=== PATIENT | female | born 1955 | race Caucasian/White ===

== ENCOUNTER 2023-12-26 00:34 | Day surgery (SDC) | payer MEDICARE, SELFPAY ==
[2023-11-28 08:59] VITALS: BMI 27.5
--- NOTE | 2023-12-23 10:52 | SUR.PREOP ---
Patient called regarding upcoming procedure. Reviewed preop instructions, appointment times, and procedure prep.
--- NOTE | 2023-12-23 13:11 | PM.HPGS ---
History of Present Illness History of Present Illness Consent: Risks, benefits, and alternatives have been discussed and questions answered. Patient agrees to proceed with procedure. Chief complaint: hx colon polyps Narrative: Dena Bruce is a 68 year old female Referred for colon cancer screening. She has a history of polyps. her last colonoscopy was 6 years ago. Review of Systems Review of Systems: All systems reviewed & are unremarkable except as noted in HPI and below PMFSH Social History Social History Smoking status: Former smoker Tobacco type: cigarettes Alcohol intake: current Drinks per week: 4 Alcohol use details: wine Substance use type: does not use Living arrangements: with family Spiritual care concerns: No Meds Home Medications and Allergies Home Medications Medication Instructions Recorded Confirmed Type Lactobacillus 1 cap PO DAILY 11/28/23 12/26/23 History acidophilus-Bifidobac.animalis 2.5 billion cell capsule (Daily Probiotic) alprazolam 0.5 mg tablet 0.5 mg PO HS PRN Anxiety 11/28/23 12/26/23 History calcium carbonate 600 mg-vitamin 1 tablet PO DAILY 11/28/23 12/26/23 History D3 20 mcg (800 unit) chewable tablet (Caltrate 600 plus D) cholecalciferol (vitamin D3) 50 50 mcg PO DAILY 11/28/23 12/26/23 History mcg (2,000 unit) tablet (Vitamin D3) escitalopram oxalate 20 mg tablet 20 mg PO DAILY 11/28/23 12/26/23 History melatonin 5 mg tablet 5 mg PO HS PRN Insomnia 11/28/23 12/26/23 History meloxicam 7.5 mg tablet 7.5 mg PO DAILY PRN Pain 11/28/23 12/26/23 History omeprazole 20 mg capsule,delayed 20 mg PO DAILY 11/28/23 12/26/23 History release pravastatin 40 mg tablet 40 mg PO HS 11/28/23 12/26/23 History triamterene 37.5 1 cap PO DAILY 11/28/23 12/26/23 History mg-hydrochlorothiazide 25 mg capsule vitamin B complex 1 tablet PO DAILY 11/28/23 12/26/23 History Allergies Allergy/AdvReac Type Severity Reaction Status Date / Time hydrocodone Allergy Rash Verified 12/26/23 06:54 vancomycin Allergy Other Verified 12/26/23 06:54 Exam Const: General: alert Orientation/consciousness: patient oriented x3 Resp: Auscultation: clear to auscultation bilaterally Cardio: Rhythm: regular rhythm GI: GI Palp: Yes Soft to palpation and No Tenderness to palpation present (GI) Neuro: General: patient oriented x3 Assessment and Plan Assessment and plan (1) Colon cancer screening: Code(s): Z12.11 - Encounter for screening for malignant neoplasm of colon Status: Acute Assessment and Plan: Colonoscopy with possible biopsy or polypectomy or cautery or injection of substances.
[2023-12-26 06:57] VITALS: BP 136/80; PULSE 83; RESP 18; TEMP 36.8; O2SAT 96
[2023-12-26] MEDS: LACTATED RINGERS 1,000 ML 150 ML IV CONT (07:05)
[2023-12-26] MEDS: AMPICILLIN 2 GM/NS 100 ML 2 GM/100 ML BAG IVPB (07:06)
--- NOTE | 2023-12-26 07:27 | WPDANESEPPF ---
Anes - Initial Pre Proc Eval Procedure: Operation Date: 12/26/23 08:00 Proposed Procedures p Colonoscopy - Derick Echeverria MD Date/Time: 12/26/23 07:27 Surgeon: Derick Echeverria MD Pre Op Diagnosis: hx colon polyps Patient Data Age: 68 Gender: F Height: 1.68 m Weight: 77.4 kg Last Vital Signs Temp 98.3 F 12/26/23 06:57 Pulse 83 12/26/23 06:57 Resp 18 12/26/23 06:57 BP 136/80 12/26/23 06:57 Pulse Ox 96 12/26/23 06:57 O2 Del Method Room Air 12/26/23 06:57 Allergies Allergy/AdvReac Type Severity Reaction Status Date / Time hydrocodone Allergy Rash Verified 12/26/23 06:54 vancomycin Allergy Other Verified 12/26/23 06:54 Home Medications Medication Instructions Recorded Confirmed Type Lactobacillus 1 cap PO DAILY 11/28/23 12/26/23 History acidophilus-Bifidobac.animalis 2.5 billion cell capsule (Daily Probiotic) alprazolam 0.5 mg tablet 0.5 mg PO HS PRN Anxiety 11/28/23 12/26/23 History calcium carbonate 600 mg-vitamin 1 tablet PO DAILY 11/28/23 12/26/23 History D3 20 mcg (800 unit) chewable tablet (Caltrate 600 plus D) cholecalciferol (vitamin D3) 50 50 mcg PO DAILY 11/28/23 12/26/23 History mcg (2,000 unit) tablet (Vitamin D3) escitalopram oxalate 20 mg tablet 20 mg PO DAILY 11/28/23 12/26/23 History melatonin 5 mg tablet 5 mg PO HS PRN Insomnia 11/28/23 12/26/23 History meloxicam 7.5 mg tablet 7.5 mg PO DAILY PRN Pain 11/28/23 12/26/23 History omeprazole 20 mg capsule,delayed 20 mg PO DAILY 11/28/23 12/26/23 History release pravastatin 40 mg tablet 40 mg PO HS 11/28/23 12/26/23 History triamterene 37.5 1 cap PO DAILY 11/28/23 12/26/23 History mg-hydrochlorothiazide 25 mg capsule vitamin B complex 1 tablet PO DAILY 11/28/23 12/26/23 History Patient hx anesthesia problems: none Family hx anesthesia problems: none Results Review: All pre-operative results and documents have been reviewed as part of the pre-operative evaluation. [facility] Social History Social History Smoking status: Former smoker Tobacco type: cigarettes Alcohol intake: current Drinks per week: 4 Alcohol use details: wine Substance use type: does not use Living arrangements: with family Spiritual care concerns: No Anes - Eval Final PreProcedure Day of Procedure 12/26/23 07:27 Patient weight: normal Heart: regular rate and rhythm Lungs: clear to auscultation Airway: Mallampati scale class II Neurological: alert and oriented Last oral intake: >/= 8 hours ASA classification: III Emergent: no Anesthetic plan: proceed Anesthesia type and monitoring: general GIVS and standard monitoring Results Review: All pre-operative results and documents have been reviewed as part of the pre-operative evaluation. Informed Consent: The patient's anesthetic plan and its attendant risks and benefits were discussed with the patient/family/POA. Questions were solicited and answers provided to the satisfaction of the patient/family/POA.
[2023-12-26 08:11] VITALS: BP 104/61; PULSE 65; RESP 15; O2SAT 95
[2023-12-26 08:21] VITALS: BP 111/63; PULSE 71; RESP 22; O2SAT 98
[2023-12-26 08:31] VITALS: BP 119/72; PULSE 64; RESP 20; O2SAT 99
== END 2023-12-26 08:33 | disposition home or self-care (01) ==
PROVIDERS: PCP Internal Medicine; Visit Provider Internal Medicine Gastroenterology
PROC: 0DJD8ZZ Inspection of Lower Intestinal Tract, Via Natural or Artificial Opening Endoscopic (ICD-10-PCS; CPT 45378; principal; 2023-12-26 08:00)
DX: Z12.11 Encounter for screening for malignant neoplasm of colon (principal); K57.30 Diverticulosis of large intestine without perforation or abscess without bleeding; Z86.010 Personal history of colon polyps; Z87.891 Personal history of nicotine dependence
CPT/HCPCS: G0105; J0290; J2704; J7120

== ENCOUNTER 2025-01-01 11:53 | Outpatient (CLI) | payer MEDICARE, SELFPAY ==
--- NOTE | 2025-01-01 12:26 | ECG_ITS ---
Test Date: 2025-01-01 13:07:45 Measurements Intervals [place] Rate: 69 P: 36 MT: 130 QRS: -20 QRSD: 86 T: 27 QT: 378 QTc: 406 Interpretive Statements SINUS RHYTHM NONSPECIFIC T-WAVE ABNORMALITY- ANT/INF LEADS BASELINE ARTIFACT- I, II, AVR BORDERLINE ECG No previous ECG available for comparison Electronically Signed On 01-01-2025 13:09:54 [employer] PAYABLES CLERK by Mickey Muller D.O.
[2025-01-01 13:40] LABS: Basophils Percent Auto 0.3 % (0.2-1.2); Eosinophils Absolute Auto 0.2 K/mm3 (0-0.3); Eosinophils Percent Auto 3.4 % (0-4.4); Hematocrit 40.3 % (37.0-47.0); Immature Granulocyte Absolute 0.02 K/mm3 (0.00-0.031); Immature Granulocyte Percent A 0.3 % (0-0.5); Lymphocytes Absolute Auto 2.18 K/mm3 (0.9-3.2); Lymphocytes Percent Auto 33.4 % (18.3-44.2); Mean Corpuscular HGB Conc 32.3 g/dl (32-36); Mean Corpuscular Volume 96.2 fl (80-100); Mean Platelet Volume 10.5 fl (7.4-10.4); Monocytes Absolute Auto 0.5 K/mm3 (0.1-0.6); Monocytes Percent Auto 7.2 % (2.6-8.5); Neutrophils Absolute Auto 3.6 K/mm3 (1.3-6.7); Neutrophils Percent Auto 55.4 % (45.5-73.1); Platelet Count Result 219 k/mm3 (150-375); Red Blood Count 4.19 M/mm3 (4.2-5.4); Red Cell Distribution Width 13.2 % (11.5-14.5); White Blood Count 6.5 K/mm3 (4.5-10.0)
[2025-01-01 13:51] LABS: INR 0.9; Prothrombin Time 12.8 Seconds (11.1-14.7)
[2025-01-01 13:52] LABS: Partial Thromboplastin Time 24.5 Seconds (22.3-36.8)
--- OUTSIDE RECORDS SUMMARY | 2025-01-01 13:54 | XMS_ITS | Encounter Summary ---
Author Organization [facility] Address [address] [place] [address] Phone Care Team Providers Care Cardiology Manager Name Role Phone Leno Bermudez MD Primary Care Provider [phone] Leno Bermudez MD Unavailable [phone] Encounter Details Date Type Department Care Team (Late st Contact Info) Description 05/16/2023 Lab Requisition [facility] [address] [place] [address] System, Referring Not In [place] Social History Tobacco Use Types Packs/Day Years Used Date Smoking Tobacco: Former Smokeless Tobacco: Never Alcohol Use Standard Drinks/Week Comments Yes 0 (1 standard drink = 0.6 oz pur e alcohol) wine Comments No Sex and Gender Information Value Date Recorded Sex Assigned at Not on file 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 No / Unsure 05/16/2023 9:51 AM CDT documented as of this encounter Plan of Treatment Not on file documented as of this encounter Procedures Procedure Name Priority Date/Time Associated Diagnosis Comments QUANTIFERON-TB GOLD PLUS Routine 05/16/2023 10:44 AM CDT MMRV PANEL Routine 05/16/2023 10:44 AM CDT MUMPS IGG Routine 05/16/2023 10:44 AM CDT HERPES ZOSTER (VARICELLA) IGG Routine 05/16/2023 10:44 AM CDT RUBEOLA (MEASLES) IGG Routine 05/16/2023 10:44 AM CDT RUBELLA IMMUNITY IGG Routine 05/16/2023 10:44 AM CDT HEPATITIS B SURFACE ANTIBODY (HBSAB) Routine 05/16/2023 10:44 AM CDT documented in this encounter Results * HERPES ZOSTER (VARICELLA) IGG (05/16/2023 10:44 AM CDT) VARICELLA ZOSTER IGG 4.5 >=1.1 AI 05/16/2023 10:18 PM CDT [facility] Blood Venipuncture / Unknown 05/16/2023 10:44 AM CDT 05/16/2023 12:46 PM CDT Narrative [facility] - 05/16/2023 10:18 PM CDT <= 0.8 Negative. No detectable VZV IgG antibody. 0.9 - 1.0 Equivocal >=1.1 Positive Antibody testing was performed by multiplex flow immunoassay on the [employer] platform. us Referring Not In System IMMUNOLOGY ORDERABLES Fi nal Result Performing Organization Address City/State/[facility] Co de Phone Number [facility] [address] [place] [address], * RUBEOLA (MEASLES) IGG (05/16/2023 10:44 AM CDT) MEASLES AB IGG >8.0 >=1.1 AI 05/16/2023 10:18 PM CDT [facility] Blood Venipuncture / Unknown 05/16/2023 10:44 AM CDT 05/16/2023 12:46 PM CDT Narrative [facility] - 05/16/2023 10:18 PM CDT <= 0.8 Negative. No detectable Measles IgG antibody. 0.9 - 1.0 Equivocal >=1.1 Positive Antibody testing was performed by multiplex flow immunoassay on the [employer] platform. us Referring Not In System IMMUNOLOGY ORDERABLES Fi nal Result Performing Organization Address City/[facility] Co de Phone Number [facility] [address] [place] [address], [place] * RUBELLA IMMUNITY IGG (05/16/2023 10:44 AM CDT) RUBELLA IMMUNITY Immune Immune, Invalid 05/16/2023 10:18 PM CDT [facility] Blood Venipuncture / Unknown 05/16/2023 10:44 AM CDT 05/16/2023 12:46 PM CDT Narrative [facility] - 05/16/2023 10:18 PM CDT Antibody testing was performed by multiplex flow immunoassay on the [employer] platform. us Referring Not In System CHEMISTRY ORDERABLES Fin al Result Performing Organization Address [facility] Co de Phone Number [facility] [address] [place] [address], [place] * MUMPS IGG (05/16/2023 10:44 AM CDT) Mumps Ab IgG 3.8 >=1.1 AI 05/16/2023 10:18 PM CDT [facility] Blood Venipuncture / Unknown 05/16/2023 10:44 AM CDT 05/16/2023 12:46 PM CDT Narrative [facility] - 05/16/2023 10:18 PM CDT <= 0.8 Negative. No detectable Mumps IgG antibody. 0.9 - 1.0 Equivocal >=1.1 Positive Antibody testing was performed by multiplex flow immunoassay on the [employer] platform. us Referring Not In System IMMUNOLOGY ORDERABLES Fi nal Result Performing Organization Address City/[facility]/ZIP Co de Phone Number [facility] [address] [place] [address], * QUANTIFERON-TB GOLD PLUS (05/16/2023 10:44 AM CDT) NIL CONTROL 0.02 <8.01 IU/mL 05/18/2023 11:08 AM CDT [facility] TB ANTIGEN 1 0.02 <0.35 IU/mL 05/18/2023 11:08 AM CDT [facility] TB ANTIGEN 2 0.03 <0.35 IU/mL 05/18/2023 11:08 AM CDT [facility] MITOGEN CONTROL 9.98 >0.49 IU/mL 05/18/20 11:08 AM CDT [facility] INTEPRETATION TB NEGATIVE NEGATIVE, NEGATIVE (TB antigen response less than 25% of internal negative control value) 05/18/2023 11:08 AM CDT [facility] Comment:No immune response t o Mycobacterium tuberculosis antigens was noted. M. tuberculosis infection unlikely. Blood Venipuncture / Unknown 05/16/2023 10:44 AM CDT 05/16/2023 12:46 PM CDT Narrative [facility] - 05/18/2023 11:08 AM CDT A POSITIVE QUANTIFERON-TB GOLD PLUS RESULT SHOULD NOT BE THE SOLE OR DEFINITIVE BASIS FOR DETERMINING INFECTION WITH M.TUBERCULOSIS. Diagnosing or excluding tuberculosis disease, and assessing the probability of LTBI, requires a combination of epidemiological, historical, medical and diagnostic findings (e.g., acid fast bacilli (AFB) smear and culture, chest xray) that should be taken into account when interpreting QFT-Plus results. Furthermore, the magnitude of the measured gamma interferon level cannot be correlated to stage or degree of infection, level of immune responsiveness, or likelihood for progression to active disease. The Nil control adjusts for background (e.g., elevated levels of circulating gamma interferon or presence of heterophile antibodies). The Mitogen control serves as an internal positive control and verifies each specimen tested can produce a gamma interferon response. Low mitogen may occur with insufficient lymphocytes, reduced lymphocyte activity due to improper specimen handling, filling/mixing of the mitogen tube, or inability of the patient's lymphocytes to generate gamma interferon. Infection with other Mycobacteria, including M. kansasii, M. szulgai, and M. marinum, may cause false positive results. A negative QuantiFERON-TB Gold Plus result does not preclude the possibility of M. tuberculosis infection or tuberculosis disease: false negative results can be due to incorrect blood sample collection/ improper handling of the specimen, stage of infection (e.g., specimen obtained prior to the development of cellular immune response), co-morbid conditions which affect immune function, or other individual immunological factors. The minimum number of lymphocytes required for a reliable test has not been established and may also be variable. Diagnostic testing for Mycobacterium tuberculosis using Interferon Gamma Release Assays should follow applicable published guidelines, including when testing in populations such as children, women, and HIV-infected or otherwise immunocompromised individuals. https://www.cdc.gov/tb/publications/guidelines/testing.htm us Referring Not In System IMMUNOLOGY ORDERABLES Fi nal Result Performing Organization Address [facility] Co de Phone Number [facility] [address] [place] [address], [place] * HEPATITIS B SURFACE ANTIBODY (HBSAB) (05/16/2023 10:44 AM CDT) HEPATITIS B SURFACE ANTIBODY 45.48 mIU/mL [facility] ARCH [id number] 05/17/2023 1:39 AM CDT [facility] Comment: Detected Range: >12.00 Individual is considered immune to HBV infection Blood Venipuncture / Unknown 05/16/2023 10:44 AM CDT 05/16/2023 12:46 PM CDT us Referring Not In System CHEMISTRY ORDERABLES Fin al Result Performing Organization Address [facility] Co de Phone Number [facility] [address] [place] [address], documented in this encounter Visit Diagnoses Not on filedocumented in this encounter Care Teams Cardiology Manager Relationship Specialty Start Date End Date Leno Bermudez MD [address] [facility] [address] [place] [address] PCP - General Internal Medicine 11/02/20 Leno Bermudez MD [address] [place] [address] [address] [place] [address] Internal Medicine 11/02/20 documented as of this encounter
--- OUTSIDE RECORDS SUMMARY | 2025-01-01 13:54 | XMS_ITS | Clinical Summary ---
Author Organization [facility] Address [address] [place] [id number] Care Team Providers Care Range Manager Name Role Phone Leno Bermudez MD Unavailable [phone] Leno Bermudez MD Primary Care Provider Allergies Active Allergy Reactions Criticality Noted Date Comments Hydrocodone Anxiety,Rash Medium 10/04/2020 Vancomycin Other (See comments) High 11/02/2022 DRESS Positive patch testing in allergy clinic on 03/25/23. Polyglactin 910 Other (See comments) Low 09/14/2022 infection Medications cholecalciferol, vitamin D3, (CHOLECALCIFEROL , VIT D3,,BULK, MISC) Take by mouth daily as needed Active ALPRAZolam (XANAX) 0.5 mg tabletIndication s:anxiety Take 1 tablet (0.5 mg total) by mouth nightly as needed for sleep 2 Active escitalopram (LEXAPRO) 20 mg tabletIndication s:Anxiety with Depression Take 1 tablet (20 mg total) by mouth every morning 0 Active omeprazole (PriLOSEC) 20 mg capsuleIndicatio ns:Stress Ulcer Prophylaxis Take by mouth every morning 2 Active pravastatin (PRAVACHOL) 40 mg tabletIndication s:hyperlipidemia Take 1 tablet (40 mg total) by mouth nightly 0 Active triamterene-hydr oCHLOROthiazide 37.5-25 mg per tablet/capsuleIn dications:HTN Take 1 tablet/capsul e by mouth every morning 0 Active calcium carbonate-vitami n D3 1,500 mg (600 mg elemental)-500 unit capsuleIndicatio ns:Vitamin D Deficiency Take 1 tablet by mouth every morning Active meloxicam (MOBIC) 7.5 mg tabletIndication s:Pain Take 1 tablet (7.5 mg total) by mouth daily 30 tablet 11 2 Active ondansetron (ZOFRAN) 4 mg tablet Take 1 tablet (4 mg total) by mouth every 6 (six) hours as needed for nausea or vomiting 40 tablet 3 Active amoxicillin 500 mg tablet/capsuleIn dications:Prophy laxis, Medical TAKE 4 PILLS 1 HOUR BEFORE DENTAL APPOINTMENT. 12 tablet/capsul e 3 Active amoxicillin 500 mg tablet/capsule TAKE 4 PILL 1 HOUR BEFORE DENTAL APPOINTMENT. 12 tablet/capsul e 4 Active Active Problems Problem Noted Date Diagnosed Date Chronic infection of left knee 01/05/2023 Infection and inflammatory r eaction due to internal left knee prosthesis, initial encounter 09/28/2022 MARIAM on CPAP 09/17/2022 Bacterial arthritis (CMS/HCC) 09/15/2022 Chronic sinusitis 09/14/2022 Closed fracture of lateral malleolus 09/14/2022 Contusion of chest 09/14/2022 Depressive disorder 09/14/2022 Fracture of lower leg 09/14/2022 Illness 09/14/2022 Osteoarthritis of knee 09/14/2022 Osteopenia 09/14/2022 Polyneuropathy 09/14/2022 Restless legs 09/14/2022 Sciatica 09/14/2022 Vertigo 09/14/2022 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 - She has completed 6 weeks of treatment with antibiotics - Labs from 11/08/22 were reviewed. CK within normal limits, ESR/CRP 14/<3.0 and LFT's have normalized. - She is planned for [address] Forman - Will stop her IV and PO antibiotics today as she completed her 6 week treatment for culture negative PJI - PICC line removed in clinic - May follow with ID as needed moving forward - Will touch base with Dr. Forman and inform that antibiotics have been stopped - Discussed with patient the rational for treatment, culture results, risk of recurrent infection, signs/symptoms of recurrent infection, and to contact ID clinic with any questions or concerns Assessment & Plan (10/19/2022 3:18 PM VAMP LINER): Summary: L-TKA PJI, culture-negative s/p 1st stage of planned 2-stage procedure. Current antibiotic regimen is: Vancomycin and ceftriaxone Start date: 09/27/22 Due date:11/08/22 Completed 3 weeks of therapy Adverse effects from antibiotics: DRES Slightly improvement since stopping ALUMINUM SIDING APPLICATOR and VAN. We discussed options to complete therapy providing similar coverage with alternative agents; PO bactrim not favored by the patient due to potential side effects (no known allergy and tolerated before), so we'll complete therapy with daptomycin and ciprofloxacin PLAN - Discontinue current treatment regimen - will get baseline CPK today and start Daptomycin 8 mg/Kg = 600 mg IV daily + Ciprofloxacin 750 mg PO q12h to complete the 6-weeks of therapy as planned --firm stop on 11/08/21 - while on IV daptomucyn we'll monitor CBC/CMP weekly and CK x2 weekly (on pravastatin). RTC in 3 weeks. Assessment & Plan (09/30/2022 11:43 AM VAMP LINER): The patient is a 67 y.o. female with PMH of HTN, HLD, GERD, depression, L TKA in 2016 who presents for concern of chronic PJI. She had 2 prior aspirations of L knee in Jul 2022 with mildly elevated cell count and negative cultures. Repeat aspiration of L knee 08/24 showed 3.5k cells with 90%N and negative cultures. Synovasure was positive for Staph panel, no crystals. XR showed loosening of tibial component TKA. ESR 16and CRP 4.2. No systemic symptoms. She underwent removal of L TKA with I&D and placement of articulating spacer. Gross purulence was noted upon entering the joint.OR cultures remain NGTD. She was started on empiric vanc and cefepime. Since admission she has been afebrile and HDS. Labs without leukocytosis. Recommendations: - increased vancomycin dose 1500 mg q12h, ordered trough before 4th dose (goal 15-20) - continue cefepime to 2g q12h - plan to continue current antibiotic therapy for 6 weeks - given negative cultures pending PCR sent out by micro lab, will follow up results once available likely outpatient - ID will sign off, summary of treatment note with final recs Arthralgia of left knee 07/16/2022 Vitamin D deficiency 04/29/2022 Diverticulitis of sigmoid colon 04/14/2020 Raynaud's disease 02/06/2019 Gastroesophageal reflux disease 03/07/2017 Hiatal hernia 03/07/2017 Hypertensive disorder 03/07/2017 Pure hypercholesterolemia 03/07/2017 Asthma 03/07/2017 Immunizations Immunization Administration Dates Next Due Influenza, Quadrivalent, Split, Intramuscular Influenza, Unspecified 08/18/2023 Moderna SARS-CoV-2 Monovalent Vaccination (12+ Y RS) 09/21/2021,09/10/2021 Pneumococcal Conjugate PCV 13 10/21/2021 Tdap 11/02/2020 Surgical History Surgery Date Site/Laterality Comments CATARACT EXTRACTION 08/07/2020 - 09/06/2020 Bilateral KNEE ARTHROPLASTY 11/07/2016 - 11/06/2017 Left OTHER SURGICAL HISTORY 11/07/2009 - 11/06/2010 TVT SEPTOPLASTY 11/07/2003 - 11/06/2004 CARPAL TUNNEL RELEASE 11/07/2002 - 11/06/2003 Right BREAST BIOPSY 11/07/1999 - 11/06/2000 Right Medical History Medical History Date Comments PONV (postoperative nausea and vomiting) Does well with scope in pre op, does well with premedication in preop Sleep apnea 2010 cpap HTN (hypertension) HLD (hyperlipidemia) Anxiety and depression GERD (gastroesophageal reflux disease) Cataracts, bilateral Osteoarthritis Family History Medical History Relation Name Comments Heart attack Father Stroke Father Transient ischemic attack Sister Anesthesia problems Neg Hx Relation Name Status Comments Father Sister Social History Tobacco Use Types Packs/Day Years Used Date Smoking Tobacco: Former Cigarettes 0.5 6 1 2 - 1977 Passive Smoke Exposure: Never Tobacco Cessation:Counseling Given: Not Answered OASIS D0700: Social Isolation Answer Da te Recorded Frequency of experiencing loneliness or isolatio n Rarely 11/11/2022 OASIS A1250: Transportation Answer Date Recorded Lack of Transportation (Medical) No 11/11/2022 Lack of Transportation (Non-Medical) No 11/11/2022 Patient Unable or Declines to Respond No 11/11/2022 OASIS B1300: Health Literacy Answer Maurizio e Recorded Frequency of needing help to read materials from doctor or pharmacy Patient unable to respond 11/11/2022 AUDIT-C Answer Date Recorded Q1: How often do you have a drink containing alc ohol? 2-3 times a week 04/22/2023 Average Number of Drinks Not on file 023 Frequency of Binge Drinking Not on file 04/07 Personal Safety Answer Date Recorded Getting School Help Needed Denies 11/10 Comments No Sex and Gender Information Value Date Recorded Sex Assigned at Not on file Legal Sex Female 8:26 AM VAMP LINER Gender Identity Not on file Sexual Orientation Not on file Obstetrics History Last Filed Vital Signs Vital Sign Reading Time Taken Comments Blood Pressure 121/78 04/22/2023 9:29 AM CDT Pulse 67 04/22/2023 9:29 AM CDT Temperature 36.7 C (98 F) 04/22/2023 9:29 AM CDT Respiratory Rate 12 03/25/2023 8:50 AM CDT Oxygen Saturation 99% 04/22/2023 9:29 AM CDT Inhaled Oxygen Concentration - - Weight 78.3 kg (172 lb 11.2 oz) 04/22/2023 9:29 AM CDT Height 170.2 cm (5' 7 ) 04/22/2023 9:29 AM CDT Body Mass Index 27.05 04/22/2023 9:29 AM CDT Plan of Treatment Health Maintenance Due Date Last Done Comments Breast Cancer Screening-Mammogram 1954 Colon Cancer Screening-Colonoscopy 1955 Depression Screening 1955 Hepatitis C Screening 1955 Hepatitis B Screening 02/08/1972 Zoster Vaccine (1 of 2) 02/08/2004 Well Visit 65+ 2019 Pneumococcal vaccine 65+ (2 of 2 - PPSV23) 12/16/2021 10/21/2021 Osteoporosis Screening-Bone Density Scan 11/04/2023 11/04/2021 Fall Risk Assessment 01/07/2024 01/06/2023 Covid-19 Vaccine (5 - 2023-2 5 season) 2024 09/21/2021, 09/10/2021, 01/05/2021, Additional history exists Influenza Vaccine (#1) 2024 08/18/2023, 2020 DTaP/Tdap/Td Vaccine (2 - Td or Tdap) 11/02/2030 11/02/2020 Medical Devices Implanted Type Area Supervisory Clerk Device Identifier Shelf Expiration Date Model / Serial / Lot Plate Plate Left: Ankle Description:Plate & screws [employer] Simplex P Full Dose Radiopaque Preblend Cement Bone Tobramycin 6197-9-010 - [id number] Implanted:Qty: 1 on 01/05/2023 by Kevon Forman MD at [facility] Left: Knee [employer] 05/06/2024 6197-07-08 0 / / [id number] [employer] Simplex P Full Dose Radiopaque Preblend Cement Bone Tobramycin 6197-9-010 - [id number] Implanted:Qty: 1 on 01/05/2023 by Kevon Forman MD at [facility] Left: Knee [employer] 06/06/2024 6197-07-08 0 / / [id number] [employer] Simplex P Full Dose Radiopaque Preblend Cement Bone Tobramycin 6197-9-010 - [id number] Implanted:Qty: 1 on 01/05/2023 by Kevon Forman MD at [facility] Left: Knee [employer] 05/06/20249 0 / / [id number] [employer] Simplex P Full Dose Radiopaque Preblend Cement Bone Tobramycin 6197-9-010 - [id number] Implanted:Qty: 1 on 01/05/2023 by Kevon Forman MD at [facility] Left: Knee [employer] 06/06/2024 6197-07-08 0 / / [id number] [employer] Triathlon Total Stabilizer Knee Left 4 Component Femoral Cocr 5512-F-401 - [id number] Implanted:Qty: 1 on 01/05/2023 by Kevon Forman MD at [facility] Left: Knee [employer] [id number] 07/28/2027 5512-F-40 1 / / [id number] [employer] Triathlon Total Stabilize Knee Femur 25mm Extension Stem 5571-S-025 - [id number] Implanted:Qty: 1 on 01/05/2023 by Kevon Forman MD at [facility] Left: Knee [employer] [id number] 10/14/2027 5571-S-02 5 / / [id number] [employer] Tri[employer]lon 12mm 50mm Cement End Cap Knee Stem Femoral Cocr 5560-S-112 - [id number] Implanted:Qty: 1 on 01/05/2023 by Kevon Forman MD at [facility] Left: Knee [employer] [id number] 11/16/2027 5560-S-11 2 / / [id number] [employer] Triathlon 5mm Total Stabilize Knee Left 4 Augment Femoral 5540-A-401 - [id number] Implanted:Qty: 1 on 01/05/2023 by Kevon Forman MD at [facility] Left: Knee [employer] [id number] 11/08/2027 5540-A-40 1 / / [id number] [employer] Tri[employer]lon 5mm Total Stabilize Knee Left 4 Augment Femoral 5540-A-401 - [id number] Implanted:Qty: 1 on 01/05/2023 by Kevon Forman MD at [facility] Left: Knee [employer] [id number] 11/08/2027 5540-A-40 1 / / [id number] [employer] Tri[employer]lon 5mm Total Stabilize Knee Posterior 4 Augment Femoral 5543-A-400 - [id number] Implanted:Qty: 1 on 01/05/2023 by Kevon Forman MD at [facility] Left: Knee [employer] [id number] 10/14/2027 5543-A-40 0 / / [id number] [employer] Tri[employer]lon 10mm Total Stabilize Knee Posterior 4 Augment Femoral 5544-A-400 - [id number] Implanted:Qty: 1 on 01/05/2023 by Kevon Forman MD at [facility] Left: Knee [employer] [id number] 03/03/2026 5544-A-40 0 / / [id number] [employer] Triathlon Total Stabilize Knee Femur 25mm Extension Stem 5571-S-025 - [id number] Implanted:Qty: 1 on 01/05/2023 by Kevon Forman MD at [facility] Left: Knee [employer] [id number] 10/14/2027 5571-S-02 5 / / [id number] [employer] Tri[employer]lon Knee 3 [place] Baseplate Tibial Cocr 5521-B-300 - [id number] Implanted:Qty: 1 on 01/05/2023 by Kevon Forman MD at [facility] Left: Knee [employer] [id number] 09/08/2025 5521-B-30 0 / / [id number] [employer] Triathlon 12mm 50mm Cement End Cap Knee Stem Femoral Cocr 5560-S-112 - [id number] Implanted:Qty: 1 on 01/05/2023 by Kevon Forman MD at [facility] Left: Knee [employer] [id number] 04/19/2027 5560-S-11 2 / / [id number] [employer] Triathlon 5mm Total Stabilize Right Medial Left Lateral 3 Augment 5545-A-302 - [id number] Implanted:Qty: 1 on 01/05/2023 by Kevon Forman MD at [facility] Left: Knee [employer] [id number] 03/10/2027 5545-A-30 2 / / [id number] [employer] Triathlon 5mm Total Stabilize Left Medial Right Lateral 3 Augment 5545-A-301 - [id number] Implanted:Qty: 1 on 01/05/2023 by Kevon Forman MD at [facility] Left: Knee [employer] [id number] 01/15/2025 5545-A-30 1 / / [id number] [employer] Triathlon 19mm Total Stabilizer Plus Knee 3 Insert Tibial Sterile 1312-I-076-E - [id number] Implanted:Qty: 1 on 01/05/2023 by Kevon Forman MD at [facility] Left: Knee [employer] [id number] 11/26/2026 5537-G-31 9-E / / [id number] Explanted Type Area Supervisory Clerk Device Identifier Shelf Expiration Date Model / Serial / Lot [employer] Simplex P Full Dose Radiopaque Preblend Cement Bone Tobramycin 6197-9-001 - [id number] Implanted:Qty: 3 on 09/27/2022 by Kevon Forman MD at [facility] Explanted:Qty: 3 on 01/05/2023 by Kevon Forman MD at [facility] Left: Knee [employer] 11/06/2023 6197-9-00 1 / / [id number] [employer] Simplex P Full Dose Radiopaque Preblend Cement Bone Tobramycin 6197-9-001 - [id number] Implanted:Qty: 3 on 09/27/2022 by Kevon Forman MD at [facility] Explanted:Qty: 3 on 01/05/2023 by Kevon Forman MD at [facility] Left: Knee [employer] 09/06/2023 6197-9-00 1 / / [id number] [employer] Triathlon 16mm Total Stabilizer Plus Knee 3 Insert Tibial Sterile 6005-G-185-E - [id number] Implanted:Qty: 1 on 09/27/2022 by Kevon Forman MD at [facility] Explanted:Qty: 1 on 01/05/2023 by Kevon Forman MD at [facility] Left: Knee [employer] [id number] 12/31/2026 5537-G-31 6-E / / [id number] [employer] Tri[employer]lon 10mm Total Stabilize Knee Posterior 4 Augment Femoral 5544-A-400 - [id number] Implanted:Qty: 1 on 09/27/2022 by Kevon Forman MD at [facility] Explanted:Qty: 1 on 01/05/2023 by Kevon Forman MD at [facility] Left: Knee [employer] [id number] 01/17/2027 5544-A-40 0 / / [id number] [employer] Triathlon 5mm Total Stabilize Knee Posterior 4 Augment Femoral 5543-A-400 - [id number] Implanted:Qty: 1 on 09/27/2022 by Kevon Forman MD at [facility] Explanted:Qty: 1 on 01/05/2023 by Kevon Forman MD at [facility] Left: Knee [employer] [id number] 05/25/2027 5543-A-40 0 / / [id number] [employer] Triathlon 5mm Total Stabilize Knee Left 4 Augment Femoral 5540-A-401 - [id number] Implanted:Qty: 1 on 09/27/2022 by Kevon Forman MD at [facility] Explanted:Qty: 1 on 01/05/2023 by Kevon Forman MD at [facility] Left: Knee [employer] [id number] 04/01/2024 5540-A-40 1 / / [id number] [employer] Triathlon 5mm Total Stabilize Knee Left 4 Augment Femoral 5540-A-401 - [id number] Implanted:Qty: 1 on 09/27/2022 by Kevon Forman MD at [facility] Explanted:Qty: 1 on 01/05/2023 by Kevon Forman MD at [facility] Left: Knee [employer] [id number] 05/21/2024 5540-A-40 [id number] [employer] Tri[employer] Cemented Posterior Stabilize Knee Left 4 Component 5515-F-401 - [id number] Implanted:Qty: 1 on 09/27/2022 by Kevon Forman MD at [facility] Explanted:Qty: 1 on 01/05/2023 by Kevon Forman MD at [facility] Left: Knee [employer] [id number] 08/10/2026 5515-F-40 [id number] Insurance MEDICARE [facility] MEDICARE [facility] [place] [id number] MEDICARE [facility] [place] [id number] MEDICARE [facility] MEDICARE Advance Directives For more information, please contact: [phone] Documents on File Type Date Recorded Patient Hand Outside Cutter Expl anation ADVANCE DIRECTIVE 09/27/2022 11:07 AM [facility] er of It Sales Consultant-Medical * Full Code (Latest Code Status on File) Date Activated Date Inactivated Comments 01/05/2023 6:42 PM 01/06/2023 9:28 PM * Full Code Date Activated Date Inactivated Comments 09/27/2022 4:31 PM 10/02/2022 10:37 PM Care Teams Range Manager Relationship Specialty Start Date End Date Leno Bermudez MD [address] [place] [address] PCP - General Internal Medicine 02/07/23 Leno Bermudez MD [address] [address] Internal Medicine 10/20/22
--- OUTSIDE RECORDS SUMMARY | 2025-01-01 13:54 | XMS_ITS | Continuity of Care Document ---
Author Organization [facility] ices Address [address] [place] [address] Phone Care Team Providers Care Chemical Dependency Professional Name Role Phone Rayna Mohr Unavailable Unavailable Medications Medication Instructions Dosage Effective Dates (start - stop) Status Comments Flonase Allergy Relief 50 mcg/actuation nasal spray,suspension spray 1 - 2 spray by intranasal route every day in each nostril as needed 50-100 MCG - Active Lexapro 20 mg tablet take 1 tablet by oral route every day 20 MG - Active pravastatin 40 mg tablet take 1 tablet by oral route every day 40 MG - Active Prilosec OTC 20 mg tablet,delayed release take 1 by Oral route every day 1 - Active triamterene 37.5 mg-hydrochlorothiaz britt 25 mg capsule take 1 capsule by oral route every day 1.00 capsule - Active Procedures Procedure Date PHONE E/M BY Arden Reed 5-10 MIN Advance Directives Directive Yes / No Effective Date File Name No Information Encounters Encounter Description Practice Location Reason(s) For Visit Diagnoses Date Provider Providers Copied on Encounter [facility], [address] [place] [address], tel:[phone] [place] No Information [address] [place] [address], [facility], . tel: [phone] PHONE E/M BY Arden Reed 5-10 MIN [facility], [address] [place] [address], [facility], tel:[phone] [place] COVID SYMPT (chief complaint) Contact w and exposure to oth viral communicable diseases [address] [place] [address], [address], . tel: [phone] Family History Family Member Type Diagnosis Age At Onset Problem Family history of coronary a rteriosclerosis Problem Family history o f malignant neoplasm of breast in first degree relative Payers Payer name Insurance type Covered libertarian ID Authoriza tiignacia(s) No Information Social History Type Description Quantity Date Captured Comments Alcohol Use Details Unknown Caffeine Use Details Unknown Tobacco Use Status No Information Smoking Status No Information Sex Female Chief Complaint And Reason For Visit No Information Reason For Referral Reason For Referral No Information Plan Of Treatment Date Type Action Status Patient Education Fatigue: Care Instructi ons completed History Of Present Illness Encounter Date Complaint History Of Prese nt Illness COVID SYMPT The symptoms beg an 4 days ago. The symptoms are reported as being mild. The symptoms occur constantly. Aggravating factors include being too active. Relieving factors include rest. Associated symptoms include headache, fatigue, tightness in chest, chills, reports no fever, reports having exposure on the . She states the symptoms are acute. COVID SYMPT (comments) 65 year o ld female patient calls in for a phone visit due to a positive covid screening questionnaire. Marjan Khan registered the patient and Kraig West completed the nursing intake. Patient is located in the clinic parking lot and provider is located at the [facility]. Patient complains of a 4 day long history of headache, fatigue, chest tightness and chills. Patient denies any current pain. Aggravating factors include increased activity. Relieving factors include rest and Advil. Patient also states that she was exposed to two COVID-19 positive patients on 09/15/2020 at her workplace. Patient denies that anyone in their household has traveled outside of the [facility] in the last 3 weeks or that anyone in their household has been tested for COVID. Patient denies symptoms of fever 100.4 or greater, muscle aches, body aches, rash, loss of taste or smell, shortness of breath, difficulty breathing, nausea, vomiting, diarrhea, abdominal pain or cramping, cough, sore throat, congestion, or runny nose. Patient denies any palpitations, left arm or left jaw pain. Functional Status Date Functional Assessmen t No Information Instructions Date Instruction Additional Zoeyr francia Call 911 or go to th e nearest emergency room if you experience trouble breathing, persistent pain or pressure in the chest, new confusion, inability to wake or stay awake, or bluish lips or face. Call your primary care provider if you have any other symptoms that are severe or concerning to you. COVID test results will be back in 2-5 days, you will receive a phone call with results. Do not return to work until you receive negative COVID 19 test results. All household members should be quarantined as well until patient's test results are received. If the COVID test is positive, the Health Department will be in contact with you for further direction. Related to Contact w and exposure to oth viral communicable diseases Assessments Type Assessment Date No Information Patient Care Teams Name Effective Dates (start - stop) Status Members No Information
--- OUTSIDE RECORDS SUMMARY | 2025-01-01 13:54 | XMS_ITS | Referral Summary ---
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 We discussed options to complete [...] weeks. Assessment & Plan (09/30/2022 11:43 AM FISHER DIVER NET): The patient is a 67 y.o. female [...] Pneumococcal Conjugate PCV 13 10/21/2021 Tdap 11/02/2020 Social History Tobacco Use Types Packs/Day Years Used Date Smoking Tobacco: Former Cigarettes 0.5 6 1 - 1977 Passive Smoke Exposure: Never Tobacco [...] on file Legal Sex Female 8:26 AM FISHER DIVER NET Gender Identity Not on file Sexual Orientation Not on file Last Filed Vital Signs Vital Sign Reading [...] 04/22/2023 9:29 AM CDT Plan of Treatment Not on file Medical Devices Implanted Type Area Loft Worker Device Identifier Shelf Expiration Date Model / Serial / Lot Plate Plate Left: Ankle Description:Plate & screws [employer] Simplex P Full Dose Radiopaque Preblend Cement Bone Tobramycin 6197-9-010 - [id number] Implanted:Qty: 1 on 01/05/2023 by Kevon Forman MD at [facility] Left: Knee [employer] 05/06/2024 6197 0 / / [id number] [employer] Simplex P Full Dose Radiopaque Preblend Cement Bone Tobramycin 6197-9-010 - [id number] Implanted:Qty: 1 on 01/05/2023 by Kevon Forman MD at [facility] Left: Knee [employer] 06/06/2024 61979 0 / / [id number] [employer] Simplex P Full Dose Radiopaque Preblend Cement Bone Tobramycin 6197-9-010 - [id number] Implanted:Qty: 1 on 01/05/2023 by Kevon Forman MD at [facility] Left: Knee [employer] 05/06/202497 0 / / [id number] [employer] Simplex P Full Dose Radiopaque Preblend Cement Bone Tobramycin 6197-9-010 - [id number] Implanted:Qty: 1 on 01/05/2023 by Kevon Forman MD at [facility] Left: Knee [employer] 06/06/2024 6197-9-01 0 / / [id number] [employer] Triathlon Total Stabilizer Knee Left 4 Component Femoral Cocr 5512-F-401 - [id number] Implanted:Qty: 1 on 01/05/2023 by Kevon Forman MD at [facility] Left: Knee [employer] [id number] 07/28/2027 5512-F-40 1 / / [id number] [employer] Triathlon Total Stabilize Knee Femur 25mm Extension Stem 5571-S-025 - [id number] Implanted:Qty: 1 on 01/05/2023 by Kevon Forman MD at [facility] Left: Knee [employer] [id number] 10/14/2027 5571-S-02 5 / / [id number] [employer] Triathlon 12mm 50mm Cement End Cap Knee Stem Femoral Cocr 5560-S-112 - [id number] Implanted:Qty: 1 on 01/05/2023 by Kevon Forman MD at [facility] Left: Knee [employer] [id number] 11/16/2027 5560-S-11 2 / / [id number] [employer] Triathlon 5mm Total Stabilize Knee Left 4 Augment Femoral 5540-A-401 - [id number] Implanted:Qty: 1 on 01/05/2023 by Kevon Forman MD at [facility] Left: Knee [employer] [id number] 11/08/2027 5540-A-40 1 / / [id number] [employer] Triathlon 5mm Total Stabilize Knee Left 4 Augment Femoral 5540-A-401 - [id number] Implanted:Qty: 1 on 01/05/2023 by Kevon Forman MD at [facility] Left: Knee [employer] [id number] 11/08/2027 5540-A-40 1 / / [id number] [employer] Triathlon 5mm Total Stabilize Knee Posterior 4 Augment Femoral 5543-A-400 - [id number] Implanted:Qty: 1 on 01/05/2023 by Kevon Forman MD at [facility] Left: Knee [employer] [id number] 10/14/2027 5543-A-40 0 / / [id number] [employer] Triathlon 10mm Total Stabilize Knee Posterior 4 Augment Femoral 5544-A-400 - [id number] Implanted:Qty: 1 on 01/05/2023 by Kevon Forman MD at [facility] Left: Knee [employer] [id number] 03/03/2026 5544-A-40 0 / / [id number] [employer] Triathlon Total Stabilize Knee Femur 25mm Extension Stem 5571-S-025 - [id number] Implanted:Qty: 1 on 01/05/2023 by Kevon Forman MD at [facility] Left: Knee [employer] [id number] 10/14/2027 5571-S-02 5 / / [id number] [employer] Triathlon Knee 3 Hannibal Baseplate Tibial Cocr 5521-B-300 - [id number] Implanted:Qty: 1 on 01/05/2023 by Kevon Forman MD at [facility] Left: Knee [employer] [id number] 09/08/2025 5521-B-30 0 / / [id number] [employer] Triathlon 12mm 50mm Cement End Cap Knee Stem Femoral Cocr 5560-S-112 - [id number] Implanted:Qty: 1 on 01/05/2023 by Kevon Forman MD at [facility] Left: Knee [employer] [id number] 04/19/2027 5560-S-11 2 / / [id number] [employer] Triathlon 5mm Total Stabilize Right Medial Left Lateral 3 Augment 5545-A-302 - [id number] Implanted:Qty: 1 on 01/05/2023 by Kevon Forman MD at [facility] Left: Knee [employer] [id number] 03/10/2027 5545-A-30 2 / / [id number] [employer] Triathlon 5mm Total Stabilize Left Medial Right Lateral 3 Augment 5545-A-301 - [id number] Implanted:Qty: 1 on 01/05/2023 by Kevon Forman MD at [facility] Left: Knee [employer] [id number] 01/15/2025 5545-A-30 1 / / [id number] [employer] Triathlon 19mm Total Stabilizer Plus Knee 3 Insert Tibial Sterile 4246-U-001-E - [id number] Implanted:Qty: 1 on 01/05/2023 by Kevon Forman MD at [facility] Left: Knee [employer] [id number] 11/26/2026 5537-G-31 9-E / / [id number] Explanted Type Area Loft Worker Device Identifier Shelf Expiration Date Model / Serial / Lot [employer] Simplex P Full Dose Radiopaque Preblend Cement Bone Tobramycin 6197-9-001 - [id number] Implanted:Qty: 3 on 09/27/2022 by Kevon Forman MD at [facility] Explanted:Qty: 3 on 01/05/2023 by Kevon Forman MD at [facility] Left: Knee [employer] 11/06/2023 6197-9-00 1 / / [id number] [employer] Simplex P Full Dose Radiopaque Preblend Cement Bone Tobramycin 6197-9-001 - [id number] Implanted:Qty: 3 on 09/27/2022 by Kevon Forman MD at [facility] Explanted:Qty: 3 on 01/05/2023 by Kevon Forman MD at [facility] Left: Knee [employer] 09/06/2023 6197-9-00 1 / / [id number] [employer] Triathlon 16mm Total Stabilizer Plus Knee 3 Insert Tibial Sterile 5536-Q-101-E - [id number] Implanted:Qty: 1 on 09/27/2022 by Kevon Forman MD at [facility] Explanted:Qty: 1 on 01/05/2023 by Kevon Forman MD at [facility] Left: Knee [employer] [id number] 12/31/2026 5537-G-31 6-E / / [id number] [employer] Triathlon 10mm Total Stabilize Knee Posterior 4 Augment Femoral 5544-A-400 - [id number] Implanted:Qty: 1 on 09/27/2022 by Kevon Forman MD at [facility] Explanted:Qty: 1 on 01/05/2023 by Kevon Forman MD at [facility] Left: Knee [employer] [id number] 01/17/2027 5544-A-40 0 / / [id number] [employer] Triathlon 5mm Total Stabilize Knee Posterior 4 Augment Femoral 5543-A-400 - [id number] Implanted:Qty: 1 on 09/27/2022 by Keovn Forman MD at [facility] Explanted:Qty: 1 on 01/05/2023 by Kevon Forman MD at [facility] Left: Knee [employer] [id number] 05/25/2027 5543-A-40 0 / / [id number] [employer] Triathlon 5mm Total Stabilize Knee Left 4 Augment Femoral 5540-A-401 - [id number] Implanted:Qty: 1 on 09/27/2022 by Kevon Forman MD at [facility] Explanted:Qty: 1 on 01/05/2023 by Kevon Forman MD at [facility] Left: Knee [employer] [id number] 04/01/2024 5540-A-40 1 / / [id number] [employer] Triathlon 5mm Total Stabilize Knee Left 4 Augment Femoral 5540-A-401 - [id number] Implanted:Qty: 1 on 09/27/2022 by Kevon Forman MD at [facility] Explanted:Qty: 1 on 01/05/2023 by Kevon Forman MD at [facility] Left: Knee [employer] [id number] 05/21/2024 5540-A-40 1 / / [id number] [employer] Triathlon Cemented Posterior Stabilize Knee Left 4 Component 5515-F-401 - [id number] Implanted:Qty: 1 on 09/27/2022 by Kevon Forman MD at [facility] Explanted:Qty: 1 on 01/05/2023 by Kevon Forman MD at [facility] Left: Knee [employer] [id number] 08/10/2026 5515-F-40 1 / / [id number] Insurance MEDICARE [facility] MEDICARE [employer] [place] [employer] [place] [address] MEDICARE [facility] [place] [address] MEDICARE Advance Directives For more information, please contact: [phone] Documents on File Type Date Recorded Patient Bi Consultant Expl anation ADVANCE DIRECTIVE 09/27/2022 11:[address] [facility] [employer] Workflow Consultant-Medical * Full Code (Latest Code Status on File) Date Activated Date Inactivated Comments 01/05/2023 6:42 PM 01/06/2023 9:28 PM * Full Code Date Activated Date Inactivated Comments 09/27/2022 4:31 PM 10/02/2022 10:37 PM Care Teams Trust Advisor Relationship Specialty Start Date End Date Leno Bermudez MD [address] [address] PCP - General Internal Medicine 02/07/23 Leno Bermudez MD [address] [address] Internal Medicine 10/20/22
--- OUTSIDE RECORDS SUMMARY | 2025-01-01 13:54 | XMS_ITS | Clinical Summary ---
Author Organization [facility] Address [address] [place] [address] Phone Care Team Providers Care Gold Marker Name Role Phone Leno Bermudez MD Primary Care Provider [phone] Leno Bermudez MD Unavailable [phone] Allergies Active Allergy Reactions Criticality Noted Date Comments Ceftriaxone Other (see Comments) High 11/09/2023 Ciprofloxacin Other (see Comments) 07/16/2024 Tendon issues Hydrocodone Anxiety 10/04/2020 Vancomycin Other (see Comments) High 11/02/2022 DRESS Positive patch testing in allergy clinic on 03/25/23. Medications triamterene-hyd rochlorothiazid e (DYAZIDE) 37.5-25 MG Capsule 0 Active escitalopram (LEXAPRO) 20 MG Tablet 0 Active pravastatin (PRAVACHOL) 40 MG Tablet 0 Active alendronate (FOSAMAX) 70 MG Tablet TAKE 1 TABLET BY MOUTH WEEKLY 0 Active ALPRAZolam (XANAX) 0.5 MG Tablet TAKE 1 TABLET BY MOUTH THREE TIMES A DAY 0 Active Fluticasone Propionate (FLONASE NA) by Nasal route. A ctive OMEPRAZOLE PO Take by mouth. A ctive VITAMIN D PO Take by mouth. Ac tive albuterol (ProAir HFA) 108 (90 Base) MCG/ACT Aerosol SolutionIndicat ions:Cough,Shor tness of breath take 2 Puffs by inhalation every 4 hours as needed for Wheezing or Cough. 18 g 2 Active methylPREDNISol one (Medrol) 4 MG Tablet Therapy PackIndications :Cough,Shortnes s of breath Use as per instructions on package. 21 Tablet 2 Active Additional Information Patient not taking.Reported on 07/16/2024 alendronate (FOSAMAX) 70 MG Tablet TAKE 1 TABLET BY MOUTH WEEKLY 0 Active escitalopram (LEXAPRO) 20 MG Tablet Take 20 mg by mouth daily. 0 Active pravastatin (PRAVACHOL) 40 MG Tablet Take 40 mg by mouth daily. 0 Active triamterene-hyd rochlorothiazid e (DYAZIDE) 37.5-25 MG Capsule TAKE 1 CAPSULE BY MOUTH EVERY DAY 0 Active omeprazole (PriLOSEC) 20 MG CAPSULE DELAYED RELEASE Take 20 mg by mouth daily. Active Active Problems No known active problems Immunizations Immunization Administration Dates Next Due TDAP Vaccine 11/02/2020 Social History Tobacco Use Types Packs/Day Years Used Date Smoking Tobacco: Former Smokeless Tobacco: Never Tobacco Cessation:Counseling Given: Not Answered Alcohol Use Standard Drinks/Week Comments Yes 0 (1 standard drink = 0.6 oz pur e alcohol) wine on weekends Sexually Active Control Partners Comments Not Currently Comments No Sex and Gender Information Value Date Recorded Sex Assigned at Not on file Legal Sex Female 10:14 AM VISCOSITY TESTER Gender Identity Not on file Sexual Orientation Not on file Last Filed Vital Signs Vital Sign Reading Time Taken Comments Blood Pressure 128/74 08/06/2024 3:04 PM CDT Pulse 89 08/06/2024 3:04 PM CDT Temperature 36.6 C (97.9 F) 08/06/2024 3:04 PM CDT Respiratory Rate 17 08/06/2024 3:04 PM CDT Oxygen Saturation 97% 08/06/2024 3:04 PM CDT Inhaled Oxygen Concentration - - Weight 72.6 kg (160 lb) 11/02/2020 2:31 PM VISCOSITY TESTER Height 167.6 cm (5' 6 ) 11/02/2020 2:31 PM VISCOSITY TESTER Body Mass Index 25.82 11/02/2020 2:31 PM VISCOSITY TESTER Plan of Treatment Health Maintenance Due Date Last Done Comments DEXA Bone Density 1955 Hepatitis C Virus (HCV) Screening 1955 Mammogram 1955 Cologuard 02/08/2004 Immunochemical Fecal Occult Blood 02/08/2004 Zoster Immunization (1 of 2) 02/08/2004 Pneumococcal Immunization (50+ years) (2 of 2 - PPSV23) 10/21/2022 10/21/2021 Influenza Immunization (#1) 2024 08/24/2023, 1 12/08/2020 SARS-COV-2 Immunization ( season) 2024 09/21/2021, 09/10/2021, 01/09/2021, Additional history exists Colonoscopy 06/12/2028 06/12/2018 Colorectal Cancer Screening 06/12/2028 Respiratory Syncytial Virus (RSV) Immunization (Adult) (1 - 1-dose 75+ series) 2029 Td Immunization Every 10 Years (Adults With 1 Tdap) 11/02/2030 11/02/2020 06/12/2018 DTaP/Tdap/Td Immunization Discontinued 11/02/2020 Pneumococcal Immunization Combined Discontinued 10/21/2021 Hepatitis B Immunization Aged Out No longer eligible based on patient's age to complete this topic Meningococcal Immunization (ACWY) Aged Out No longer eligible based on patient's age to complete this topic Rotavirus Immunization Aged Out No lo nger eligible based on patient's age to complete this topic Insurance [email or web address] MEDICARE [employer] [place] [address] * Guarantor: [facility] Account Type Relation to Patient Date of Phone Billing Address Institutional Other [address] [place] [address] Care Teams Gold Marker Relationship Specialty Start Date End Date Leno Bermudez MD [address] [facility] [address] [place] [address] PCP - General Internal Medicine 11/02/20 Leno Bermudez MD [address] [facility] [address] [place] [address] Internal Medicine 11/02/20
--- OUTSIDE RECORDS SUMMARY | 2025-01-01 13:54 | XMS_ITS | CONTINUITY OF CARE DOCUMENT ---
Author Name mylene chakraborty Address Unknown Organization [facility] Address [address] [place] [address] Phone [phone] Care Team Providers Care Engineering Laboratory Technician Name Role Phone mylene chakraborty Unavailable Unavailable INSURANCE PROVIDERS Payer name Policy type / Coverage type [place] red [employer] party ID [facility] [id number]
--- OUTSIDE RECORDS SUMMARY | 2025-01-01 13:54 | XMS_ITS | Encounter Summary ---
Author Organization [facility] Address [address] [place] [address] Phone Care Team Providers Care Capsule Filling Machine Operator Name Role Phone Leno Bermudez MD Unavailable [phone] Leno Bermudez MD Primary Care Provider Encounter Details Date Type Department Care Team (Latest Contact Info) Description 04/22/2023 Orders Only [facility] Scanning, Provider Social History Tobacco Use Types Packs/Day Years Used Date Smoking Tobacco: Former Cigarettes 0.5 6 1 972 - 1977 Passive Smoke Exposure: Never OASIS D0700: Social Isolation Answer Da te [...] of Binge Drinking Not on file 04/07 Comments No Sex and Gender Information Value Date Recorded Sex Assigned at Not on file Legal Sex Female 8:26 AM GAS REVERSER Gender Identity Not on file Sexual Orientation Not on file documented as of this encounter Functional Status documented as of this encounter Plan of Treatment Not on file documented as of this encounter Procedures Procedure Name Priority Date/Time Associated Diagnosis Comments SCAN - LABS 04/22/2023 documented in this encounter Results * SCAN - LABS (04/22/2023) us Provider Scanning Final Result documented in this encounter Visit Diagnoses Not on filedocumented in this encounter Care Teams Capsule Filling Machine Operator Relationship Specialty Start Date End Date Leno Bermudez MD [address] [address] PCP - General Internal Medicine 02/07/23 Leno Bermudez MD [address] [address] Internal Medicine 10/20/22 documented as of this encounter
[2025-01-01 13:57] LABS: Alanine Aminotransferase 20 U/L (6-35); Albumin Level 4.2 g/dL (3.5-5.1); Alkaline Phosphatase 66 U/L (38-126); Anion Gap 8 mmol/L (4-12); Aspartate Amino Transferase 26 U/L (14-36); Bilirubin,Total 0.7 mg/dL (0.2-1.3); Blood Urea Nitrogen 23 mg/dL (7-17); Calcium 9.4 mg/dL (8.4-10.2); Carbon Dioxide 31 mmol/L (22-30); Chloride 101 mmol/L (98-107); Estimated Glomerular Filt Rate 60; Glucose 116 mg/dL (65-110); Potassium 3.7 mmol/L (3.4-5.0); Sodium 140 mmol/L (137-145)
== END 2025-01-01 11:54 | disposition home or self-care (01) ==
LOC: ANHSURGERY 12:00
PROVIDERS: PCP Internal Medicine; Visit Provider Urology
DX: N39.41 Urge incontinence (principal); N81.2 Incomplete uterovaginal prolapse; E78.5 Hyperlipidemia, unspecified; I10 Essential (primary) hypertension; Z01.818 Encounter for other preprocedural examination
CPT/HCPCS: 36415; 80053; 85025; 85610; 85730; 86850; 86900; 86901; 93005

== ENCOUNTER 2025-01-14 01:02 | Day surgery (SDC) | payer MEDICARE, SELFPAY ==
[2025-01-01 12:20] VITALS: BP 119/71; PULSE 76; RESP 16; TEMP 36.8; O2SAT 95; BMI 28.6
--- NOTE | 2025-01-01 12:37 | PC.NURSE ---
Report to the Outpatient Waiting Room, entrance under the green pavilion located off [facility], at time 0600am on date ___01/10/25____. Planned Procedure Time: _0730 am .? Time changes happen often and if your time is changed the preop area will call you the afternoon before. - You and your visitor will be asked to self-screen and do not enter if you have any COVID symptoms. Please call surgeon if you need to reschedule. - A mask is optional within the hospital at this time. Patients may have clear liquids (water, carbonated beverages, clear teas, apple juice) until 3 hours prior to surgery with a maximum of 20 ounces. - No food from midnight until time of surgery and no smoking, or chewing tobacco (or any form of nicotine). No chewing gum, candy or mints. (0430am) Take only the following medications with a SIP of water on the morning of surgery: ___Escitalopram and alprazolam if needed DO NOT STOP ANY OF YOUR OTHER PRESCRIPTION MEDICATIONS PRIOR TO SURGERY EXCEPT THE FOLLOWING Hold all vitamins and supplements for 3 days per anesthesiologist.Date to take last dose___01/10/25 Medications to discontinue per physician Meloxicam for [address] Gibbs Date to take last dose____01/06/25 Please no make-up, nail malaysian, hairspray, perfume, deodorant, or body powder the day of surgery.? No jewelry (including any body piercings) or valuables the day of surgery, leave them at home.? Please take a shower or bath the night before, or the morning of, surgery with an antibacterial soap.? Wear comfortable, loose fitting clothing.? - Jewelry must be removed prior to entering the operating room.? Rings and piercings that are not removed may be cut off. - The hospital will not accept responsibility for valuables.? - Please leave all valuables, including medications, at home the day of surgery. If you are going home after surgery, a licensed motor pool driver must drive you home.? - NO public transportation without another adult if you receive anesthesia. - We recommend that an adult stay with you for 24 hours following discharge. - We also recommend that you do not drive, make important decision, drink alcoholic beverages, or take any drugs that were not prescribed by your health care provider for at least 24 hours after your discharge time. Follow any additional instructions given to you from your surgeon. Telephone instructions given to __Patient and asked if any additional questions and then verbalized understanding. Patient advised to call surgeon office or pre surgery nurse liaison [phone] if any additional questions.
--- NOTE | 2025-01-10 09:26 | PM.IMHP ---
H&P: HPI History of Present Illness Date/Time: 01/10/25 09:26 69-year-old 2 para 2021 female presents with complaints of vaginal pressure fullness and discomfort. Prior history of stress incontinence which has resolved with DVT placement. Her pressure and discomfort is due to known uterine prolapse which has worsened over time, has some urge symptomatology but no significant urinary or stool symptoms. No significant pain or abnormal bleeding. Chief Complaint: Vaginal pressure Review of Systems Review of Systems: All systems reviewed & are unremarkable except as noted in HPI and below PMFSH Past Medical History Medical History Osteoarthritis Depression Osteopenia Sleep apnea Hyperlipidemia History of hypertension Surgical History Surgical History H/O total knee replacement left knee 2017 removed in 2021 for infection new knee in 01/2023 H/O nasal septoplasty H/O right breast biopsy benign Family History Family History Mother Hypertension Lung cancer Sibling Breast cancer sister Grandparent Diabetes mellitus both grandfathers Social History Social History Smoking packs per day: 1 Smoking cigarettes per day: 20.0 Years smoked: 6 Smoking pack-years: 6.00 Smoking status: Former smoker Tobacco type: cigarettes Second hand tobacco smoke exposure: Yes Smoking end date: 11/07/78 Alcohol intake: current Drinks per week: 4 Alcohol use details: 2 per mos Substance use: never Substance use type: does not use Do You Feel Safe in your Home?: Yes Lack of Transportation: No Lack of Food: Never True Current Housing: I Have Housing Concerned About Future Housing: No Difficulty Paying Gas/Electric Bills: No Difficulty Paying for Meds: No Currently Unemployed: No Education: Bachelor's Degree Difficulty w/ Childcare or Family Care: No Living arrangements: with family Additional living arrangements comments: Occupation/Education: retired Gender identity (if verbalized by the patient): Female Sexual Orientation (if Verbalized by the Patient): Straight or Heterosexual Spiritual care concerns: No Meds Home Medications and Allergies Home Medications ?Medication ?Instructions ?Recorded ?Confirmed ?Type Lactobacillus 1 cap PO DAILY 11/28/23 01/01/25 History acidophilus-Bifidobac.animalis 2.5 billion cell capsule (Daily Probiotic) alprazolam 0.5 mg tablet 0.5 mg PO HS PRN Anxiety 11/28/23 01/01/25 History calcium 600 mg (as carbonate)-vit 1 tablet PO DAILY 11/28/23 01/01/25 History D3 20 mcg (800 unit) chewable tablet (Caltrate plus D) cholecalciferol (vitamin D3) 50 50 mcg PO DAILY 11/28/23 01/01/25 History mcg (2,000 unit) tablet (Vitamin D3) escitalopram oxalate 20 mg tablet 20 mg PO DAILY 11/28/23 01/01/25 History melatonin 5 mg tablet 5 mg PO HS PRN Insomnia 11/28/23 01/01/25 History meloxicam 7.5 mg tablet 7.5 mg PO DAILY PRN Pain 11/28/23 01/01/25 History omeprazole 20 mg capsule,delayed 20 mg PO DAILY 11/28/23 01/01/25 History release pravastatin 40 mg tablet 40 mg PO HS 11/28/23 01/01/25 History triamterene 37.5 1 cap PO DAILY 11/28/23 01/01/25 History mg-hydrochlorothiazide 25 mg capsule vitamin B complex 1 tablet PO DAILY 11/28/23 01/01/25 History oxybutynin chloride 10 mg 10 mg PO DAILY #30 tabs 12/03/24 01/01/25 Rx tablet,extended release 24 hr Allergies Allergy/AdvReac Type Severity Reaction Status Date / Time vancomycin Allergy Severe dress Verified 01/01/25 12:08 syndrome hydrocodone Allergy Rash Verified 01/01/25 12:08 ciprofloxacin (From Cipro) AdvReac Severe Other Verified 01/01/25 12:08 vicryl suture Allergy Severe sterile Uncoded 01/01/25 12:08 abcess Exam Resp: Effort & Inspection: normal respiratory effort Auscultation: clear to auscultation bilaterally Cardio: Rate: regular rate Rhythm: regular rhythm GI: Inspection: normal to inspection Auscultation: normal bowel sounds : External Female Exam: normal external appearance Speculum Exam - Vagina: normal appearance of the vagina Speculum Exam - Cervix: normal appearance of the cervix Bimanual exam- vagina & uterus: normal bimanual exam Bimanual Exam- Adnexa, other: normal adnexae Other: Uterine prolapse, cystocele, rectocele all noted Assessment and Plan Assessment and plan (1) Cystocele and rectocele with incomplete uterovaginal prolapse: Code(s): N81.2 - Incomplete uterovaginal prolapse Status: Acute Assessment and Plan: 1. Proceed with robotic assisted supracervical hysterectomy with bilateral salpingo oophorectomy
--- NOTE | 2025-01-12 10:42 | PM.IMHP ---
H&P: HPI History of Present Illness Date/Time: 01/12/25 10:42 Chief Complaint: POP Narrative: Uterine prolapse. No [place] Review of Systems Review of Systems: All systems reviewed & are unremarkable except as noted in HPI and below PMFSH Past Medical History Medical History Osteoarthritis Depression Osteopenia Sleep apnea Hyperlipidemia History of hypertension Surgical History Surgical History H/O total knee replacement left knee 2017 removed in 2021 for infection new knee in 01/2023 H/O nasal septoplasty H/O right breast biopsy benign Family History Family History Mother Hypertension Lung cancer Sibling Breast cancer sister Grandparent Diabetes mellitus both grandfathers Social History Social History Smoking packs per day: 1 Smoking cigarettes per day: 20.0 Years smoked: 6 Smoking pack-years: 6.00 Smoking status: Former smoker Tobacco type: cigarettes Second hand tobacco smoke exposure: Yes Smoking end date: 11/07/78 Alcohol intake: current Drinks per week: 4 Alcohol use details: 2 per mos Substance use: never Substance use type: does not use Do You Feel Safe in your Home?: Yes Lack of Transportation: No Lack of Food: Never True Current Housing: I Have Housing Concerned About Future Housing: No Difficulty Paying Gas/Electric Bills: No Difficulty Paying for Meds: No Currently Unemployed: No Education: Bachelor's Degree Difficulty w/ Childcare or Family Care: No Living arrangements: with family Additional living arrangements comments: Occupation/Education: retired Gender identity (if verbalized by the patient): Female Sexual Orientation (if Verbalized by the Patient): Straight or Heterosexual Spiritual care concerns: No Meds Home Medications and Allergies Home Medications ?Medication ?Instructions ?Recorded ?Confirmed ?Type Lactobacillus 1 cap PO DAILY 11/28/23 01/01/25 History acidophilus-Bifidobac.animalis 2.5 billion cell capsule (Daily Probiotic) alprazolam 0.5 mg tablet 0.5 mg PO HS PRN Anxiety 11/28/23 01/01/25 History calcium 600 mg (as carbonate)-vit 1 tablet PO DAILY 11/28/23 01/01/25 History D3 20 mcg (800 unit) chewable tablet (Caltrate plus D) cholecalciferol (vitamin D3) 50 50 mcg PO DAILY 11/28/23 01/01/25 History mcg (2,000 unit) tablet (Vitamin D3) escitalopram oxalate 20 mg tablet 20 mg PO DAILY 11/28/23 01/01/25 History melatonin 5 mg tablet 5 mg PO HS PRN Insomnia 11/28/23 01/01/25 History meloxicam 7.5 mg tablet 7.5 mg PO DAILY PRN Pain 11/28/23 01/01/25 History omeprazole 20 mg capsule,delayed 20 mg PO DAILY 11/28/23 01/01/25 History release pravastatin 40 mg tablet 40 mg PO HS 11/28/23 01/01/25 History triamterene 37.5 1 cap PO DAILY 11/28/23 01/01/25 History mg-hydrochlorothiazide 25 mg capsule vitamin B complex 1 tablet PO DAILY 11/28/23 01/01/25 History oxybutynin chloride 10 mg 10 mg PO DAILY #30 tabs 12/03/24 01/01/25 Rx tablet,extended release 24 hr Allergies Allergy/AdvReac Type Severity Reaction Status Date / Time vancomycin Allergy Severe dress Verified 01/01/25 12:08 syndrome hydrocodone Allergy Rash Verified 01/01/25 12:08 ciprofloxacin (From Cipro) AdvReac Severe Other Verified 01/01/25 12:08 vicryl suture Allergy Severe sterile Uncoded 01/01/25 12:08 abcess Exam Narrative: apex -2 Assessment and Plan Assessment and plan (1) Cystocele and rectocele with incomplete uterovaginal prolapse: Code(s): N81.2 - Incomplete uterovaginal prolapse Status: Acute (2) Uterine prolapse: Code(s): N81.4 - Uterovaginal prolapse, unspecified Status: Acute Plan Robotic Sacral Colpopexy
[2025-01-14] VITALS (12 sets, daily range): BP systolic 108–144; BP diastolic 58–108; PULSE 68–88; RESP 12–24; TEMP 36.4–36.7; O2SAT 94–100; BMI 28.0
--- OUTSIDE RECORDS SUMMARY | 2025-01-14 01:08 | XMS_ITS | Data Portability ---
Author Organization [place] [facility] [employer], Main Office Address [address] [place] [address] Care Team Providers Care Reporting Lead Name Role Phone BETO BERMUDEZ Primary Care Provider [phone] BETO BERMUDEZ Referring Provider Assessment Encounter Date Assessment Date Assessment LastModified by Organization Details LastModified Time 04/25/2023 04/25/2023 impression: Patient had swelling of the peroneal tendon sheath and significant pain and tenderness at the left ankle while she was taking ciprofloxacin and at the same time she developed a painful nodular swelling of the right index finger extensor tendon. Now that she has been off the ciprofloxacin for the last month, coinciding with that her peroneal tendon sheath is no longer swollen. She still has some minimal residual tenderness but does not have the pain she had with range of motion the at the peroneal tendon sheath prior to 1 month ago. Based on coincidence of her extensor tendon nodule and the peroneal tendon pain right wrist and left ankle and her use of ciprofloxacin, I think it is probable that she is correct that the ciprofloxacin was causing tendinopathy of these tendons. There is no evidence of rupture and her tendon seemed to be healing uneventfully. therefore observation is indicated and I can see her back for this as needed. 20 minutes were spent total care this patient more than half the time spent in [id number] care. [email or web address] Not available 05/07/2023 18:57:42 Plan of Treatment Reminders Order Date Submit Date Provider Last Modified By Organization Details Last Modified Time Details Appointments None recorded. Lab vitamin D, 25-hydroxy , total, serum 2023 024 [email or web address] [facility], [address] [place], [address], 4 10:09:22 magnesium, serum or plasma 2023 024 [email or web address] [facility], [address] [place], [address], 4 10:09:21 vitamin B12, serum 2023 024 [email or web address] [facility], [address] [place], [address], 4 10:09:22 CBC w/ auto diff 2023 024 [email or web address] [facility], [address] [place], [address], 4 10:09:21 CMP, serum or plasma 2023 024 [facility], [address] [place], [address], 4 10:09:21 lipid panel, serum 2023 024 [facility], [address] [place], [address], 4 10:09:21 TSH, serum or plasma 2023 024 [email or web address] [facility], [address] [place], [address], 4 10:09:21 T4, free, serum 2023 024 [email or web address] [facility], [address] [place], [address], 4 10:09:21 HbA1c (hemoglobi n A1c), blood [id number] [place] [address] Outpatient Lab, [address] [place], [address], 3 15:32:28 CBC w/ auto diff [id number] [place] [address] - Outpatient Lab, [address] [place], [address], 3 15:32:28 CMP, serum or plasma [id number] [place] [address] - Outpatient Lab, [address] [place], [address], 3 15:32:28 lipid panel, serum [id number] [place] [address] Outpatient Lab, [address] [place], [address], 3 15:32:28 TSH, serum or plasma [id number] [place] [address] - Outpatient Lab, [address] [place], [address], 3 15:32:28 T4, free, serum 2022 023 [email or web address] [facility], [address] [place], [address], 3 15:32:28 lipid panel, serum [email or web address] [place] [address] Outpatient Lab, [address] [place], [address], 3 17:19:06 CMP, serum or plasma [id number] [place] [address] Outpatient Lab, [address] [place], [address], 3 17:19:06 TSH, serum or plasma [id number] [place] [address] - Outpatient Lab, [address] [place], [address], 3 17:19:06 T4, free, serum 2022 023 [id number] [facility], [address] [place], [address], 3 17:19:07 CBC w/ auto diff 2022 023 [email or web address] [facility], [address] [place], [address], 17:19:07 Referral None recorded. Procedures None recorded. Surgeries None recorded. Imaging XR, ankle 2022 023 [email or web address] [facility], [address], [place], [address], 3 09:33:46 Medication Orders meloxicam 7.5 mg tablet 2023 024 [facility] [id number] [facility], [address], [place], [place], [id number], 4 15:51:46 Patient TargetsNo targets recorded. Patient Instructions Encounter Date Encounter Id Patient Instructions Last Modified By Organization Details Last Modified Time 03/15/2023 [id number] dementia rating scale-2* [email or web address] Not available 03/15/2023 17:13:35 alcohol misuse* [email or web address] Not available 03/15/2023 17:13:35 depression screening* [email or web address] Not available 03/15/2023 17:13:35 multi-dimensiona l health assessment questionnaire* [email or web address] Not available 03/15/2023 17:13:35 Personalized [facility] Plan and Screening Recommendations Advance Directives - Do you have one? Yes Advance Directives - Do we have your advance directive on file in your health record? No, please bring in a copy at your earliest convenience Primary Prevention/Intervent ion (prevents or decreases the chance of common diseases from occurring) Smoking Risk: Non Smoker Alcohol Misuse Screening: Negative Weight: Appropriate Physical activity: Need more exercise/physical activity decrease sitting time to no more than 5hr/day Nutrition: Good Fall Risk (screened today): Low Vaccines Pneumococcal: Ordered Recommended today Influenza: Your next one in the fall of this year Chronic Disease Risks Stroke: Low Risk Intermediate Risk Heart Attack: Low risk Intermediate Risk Clogging of the Arteries: Low risk Intermediate Risk Diabetes: Low Risk I have no recommendations Secondary Prevention/Intervent ion (detects treatable diseases before they may cause symptoms, disability, or ) Breast Cancer Screening with mammogram: Your next mammogram: Ordered R ecommended today Cervical/Uterine/Ova jody Cancer Screening: No screening necessary Osteoporosis Screening: Date Screening Last Performed: 11/04/21 Colon Cancer Screening: Colonoscopy Date Screening Last Performed: 06/22/18 with repeat recommendation for 5 years Eye Disease Screening: Dementia Risk: Low I have no recommendations Depression Screening: Negative Active diagnosis, Continue current treatment plan [facility] Not available 03/15/2023 15:48:20 Medicare wellnes s evaluation risk assessment stable. Follow-up for hypertension-hyperli pidemia-degenerative arthritis - GERD all stable. Will check blood work CBC, CMP, Lipid and thyroid [email or web address] Not available 03/15/2023 17:17:56 09/26/2023 [id number] Hypertension -hyperlipidemia -GERD all clinically stable. Has had significant weight gain since last examination. Her her history of mild obstructive sleep apnea has not shown any deterioration. Does use her CPAP on intermittent basis. Will continue on current medications will check blood work consisting of CBC, CMP, lipid thyroid and a hemoglobin A1c because of a recent ophthalmological examination which demonstrates some questionable changes suggestive of possible early diabetes. No interval complaints of any other problems. Is doing well otherwise. Follow-up in six months. FDA recommendations of a influenza, RSV, COVID, pneumococcal immunizations strongly advised. Portions of the record may have been created with voice recognition software. Occasional wrong-word or nulih-p-iyif substitutions may have occurred due to the inherent limitations of voice recognition software. Read the chart carefully and recognize, using context, where substitutions have occurred. Next Appt: 6 Months Approximate Date: 03/24/2024 [email or web address] Not available 09/26/2023 15:08:07 05/09/2024 [id number] dementia rating scale-2* [email or web address] Not available 05/09/2024 16:04:01 alcohol misuse* [email or web address] Not available 05/09/2024 16:04:01 depression screening* [email or web address] Not available 05/09/2024 16:04:01 multi-dimensiona l health assessment questionnaire* [email or web address] Not available 05/09/2024 16:04:[address] [facility] Plan and Screening Recommendations Advance Directives - Do you have one? Yes Advance Directives - Do we have your advance directive on file in your health record? No, please bring in a copy at your earliest convenience Primary Prevention/Intervent ion (prevents or decreases the chance of common diseases from occurring) Smoking Risk: Non Smoker Alcohol Misuse Screening: Negative Weight: Appropriate Overweig ht continue your current weight loss efforts try to lose 5% of your body weight try to lose 10% of your body weight Physical activity: Need more exercise/physical activity Nutrition: Good Average Fall Risk (screened today): Low Vaccines Pneumococcal: Ordered Recommended today Recommended today, but you have declined No further needed Influenza: Your next one in the fall of this year Chronic Disease Risks Stroke: Low Risk Intermediate Risk I have no recommendations Acti ve diagnosis, Continue current treatment plan Heart Attack: Low risk Intermediate Risk I have no recommendations Acti ve diagnosis, Continue current treatment plan Clogging of the Arteries: Low risk Intermediate Risk I have no recommendations Acti ve diagnosis, Continue current treatment plan Diabetes: Low Risk I have no recommendations Secondary Prevention/Intervent ion (detects treatable diseases before they may cause symptoms, disability, or ) Breast Cancer Screening with mammogram: Your next mammogram: Ordered R ecommended today Cervical/Uterine/Ova jody Cancer Screening: No screening necessary Osteoporosis Screening: Your next DEXA in: Ordered Recommen ded today Recommended today, but you have declined Date Screening Last Performed: Colon Cancer Screening: Colonoscopy Date Screening Last Performed: ___2023___ Eye Disease Screening: Dementia Risk: Low I have no recommendations Depression Screening: Negative Active diagnosis, Continue current treatment plan [email or web address] Not available 05/09/2024 15:55:17 Medicare [facility] evaluation risk assessment stable. Follow-up for hypertension, hyperlipidemia, GERD, sleep apnea and degenerative joint disease. All clinically stable. Blood work done in November showed a cholesterol 196 HDL of 79 LDL of 102. Hemoglobin A1c was 5.7. Hepatic and renal studies all negative. Does not need any additional testing done at this time. Does need a mammogram done. Otherwise is clinically stable follow-up in six months. Additional Orders and/or Directives: 1. Mammogram Next Appointment: 6 Months Approximate Date: 11/05/2024 Portions of the record may have been created with voice recognition software. Occasional wrong-word or ozpmo-f-reyj substitutions may have occurred due to the inherent limitations of voice recognition software. Read the chart carefully and recognize, using context, where substitutions have occurred. [email or web address] Not available 05/09/2024 16:03:45 10/08/2024 [id number] Follow-up for obstructive sleep apnea, hypertension, hyperlipidemia, GERD as well as overactive bladder. Plan at this time is to continue on CPAP. Will need new equipment. Continue on current medications check blood work consisting of CBC, CMP, lipid, thyroid, magnesium, B12 and vitamin-D level. Continue on current Rx follow-up in six months. Additional Orders - Directives - Recommendations 1. Need some type of documentation for new CPAP machine. Is using it on a regular basis and doing quite well clinically. Follow Up: 6 Months Approximate Date: 04/06/2025 Portions of the record may have been created with voice recognition software. Occasional wrong-word or zmzia-b-kphj substitutions may have occurred due to the inherent limitations of voice recognition software. Read the chart carefully and recognize, using context, where substitutions have occurred. Created: Beto Bermudez M.D. 10.08.2024 02:50 PM [email or web address] Not available 10/08/2024 15:50:48 Reason for Referral None Reported. Results Created Date Observation Date Name Description Value Unit Range Abnormal Flag Note LastModifiedBy Organization Detail LastModifiedTime 03/31/2004/01/2023 LIPID PANEL , STAND CAMPOS cholesterol, total 218 mg/dL <200 high Not Available [facility] [address] [place], [address], 04/01/2023 14:57:58 03/31/2004/01/2023 LIPID PANEL , STAND CAMPOS HDL cholesterol 84 mg/dL > or = 50 normal Not Available [facility] [address] [place], [address], 04/01/2023 14:57:58 03/31/20 23 04/01/2023 LIPID PANEL , STAND CAMPOS triglyceride s 104 mg/dL <150 normal Not Available [address], [address], 04/01/2023 14:57:58 03/31/20 23 04/01/2023 LIPID PANEL , ST[facility] CAMPOS LDL-choleste rol 113 mg/dL _(anamaria c) high Refer ence range : <100 Ashely able range <100 mg/dL for prima ry preve ntion ; <70 mg/dL for patie nts with CHD or diabe tic patie nts with > or = 2 CHD risk facto rs. LDL-C is now calcu lated using the Melly n-Hop kins calcu latluz n, which is a valid ated novel metho d provi ding poonam r accur acy than the Fried duane equat ion in the estim ation of LDL-C . Melly richter SS et al. VENUS. 2013; 310(1 9): 2061- 2068 (http ://ed ucati on.Qu estDi [employer]. com/f aq/FA Q164) Not Available [address], [address], 04/01/2023 14:57:58 03/31/20 23 04/01/2023 LIPID PANEL , STAND CAMPOS chol/HDLC ratio 2.6 (calc ) <5.0 normal Not Available [address], [address], 04/01/2023 14:57:58 03/31/20 23 04/01/2023 LIPID PANEL , ST[facility]AMPOS non HDL cholesterol 134 mg/dL _(anamaria c) <130 high For patie nts with diabe karen plus 1 major ASCVD risk facto r, treat ing to a non-H DL-C goal of <100 mg/dL (LDL- C of <70 mg/dL ) is consi dered a thera peuti c optio n. Not Available [address] [place], [address], 04/01/2023 14:57:58 03/31/20 23 04/01/2023 COMPR EHENS FRANCI METAB OLIC PANEL glucose 86 mg/dL 65-99 normal Fasti ng refer ence inter jina Not Available [address] [address] [place], [address], 04/01/2023 14:57:59 03/31/20 23 04/01/2023 COMPR EHENS FRANCI METAB OLIC PANEL urea nitrogen (BUN) 21 mg/dL 7-25 normal Not Available [facility] [address], [address], 04/01/2023 14:57:59 03/31/20 23 04/01/2023 COMPR EHENS FRANCI METAB OLIC PANEL creatinine 0.74 mg/dL 0.50-1 .05 normal Not Available [address], [address], 04/01/2023 14:57:59 03/31/20 23 04/01/2023 COMPR EHENS FRANCI METAB OLIC PANEL eGFR 88 mL/mi n/1.7 3m2 > or = 60 normal The eGFR is based on the CKD-E PI 2020 equat ion. To calcu late the new eGFR from a previ ous Creat inine or Cysta tin C resul t, go to https ://vandana santos.sravani greco/roque barakat s/ kdoqi /gfr% 5Fcal culat or Not Available [address] [address] [place], [address], 04/01/2023 14:57:59 03/31/20 23 04/01/2023 COMPR EHENS FRANCI METAB OLIC PANEL BUN/creatini ne ratio NOT APPLIC ABLE (calc ) 6-22 Not Available [address] [address] [place], [address], 04/01/2023 14:57:59 03/31/20 23 04/01/2023 COMPR EHENS FRANCI METAB OLIC PANEL sodium 142 mmol/ L 135-14 6 normal Not Available [address], [address], 04/01/2023 14:57:59 03/31/20 23 04/01/2023 COMPR EHENS FRANCI METAB OLIC PANEL potassium 3.8 mmol/ L 3.5-5. 3 normal Not Available [address], [address], 04/01/2023 14:57:59 03/31/20 23 04/01/2023 COMPR EHENS FRANCI METAB OLIC PANEL chloride 104 mmol/ L 98-110 normal Not Available [address], [address], 04/01/2023 14:57:59 03/31/20 23 04/01/2023 COMPR EHENS FRANCI METAB OLIC PANEL carbon dioxide 29 mmol/ L 20-32 normal Not Available [address], [address], 04/01/2023 14:57:59 03/31/20 23 04/01/2023 COMPR EHENS FRANCI METAB OLIC PANEL calcium 9.8 mg/dL 8.6-10 .4 normal Not Available [address], [address], 04/01/2023 14:57:59 03/31/20 23 04/01/2023 COMPR EHENS FRANCI METAB OLIC PANEL protein, total 6.5 g/dL 6.1-8. 1 normal Not Available [address], [address], 04/01/2023 14:57:59 03/31/20 23 04/01/2023 COMPR EHENS FRANCI METAB OLIC PANEL albumin 4.4 g/dL 3.6-5. 1 normal Not Available [address], [place], [address], 04/01/2023 14:57:59 03/31/20 23 04/01/2023 COMPR EHENS FRANCI METAB OLIC PANEL globulin 2.1 g/dL_ (calc ) 1.9-3. 7 normal Not Available [address], [address], 04/01/2023 14:57:59 03/31/20 23 04/01/2023 COMPR EHENS FRANCI METAB OLIC PANEL albumin/glob ulin ratio 2.1 (calc ) 1.0-2. 5 normal Not Available [address], [address], 04/01/2023 14:57:59 03/31/20 23 04/01/2023 COMPR EHENS FRANCI METAB OLIC PANEL bilirubin, total 0.6 mg/dL 0.2-1. 2 normal Not Available [address], [address], 04/01/2023 14:57:59 03/31/20 23 04/01/2023 COMPR EHENS FRANCI METAB OLIC PANEL alkaline phosphatase 65 U/L 37-153 normal Not Available [address] [address] [place], [address], 04/01/2023 14:57:59 03/31/20 23 04/01/2023 COMPR EHENS FRANCI METAB OLIC PANEL AST 16 U/L 10-35 normal Not Available [address], [address], 04/01/2023 14:57:59 03/31/20 23 04/01/2023 COMPR EHENS FRANCI METAB OLIC PANEL ALT 14 U/L 6-29 normal Not Available [address], [address], 04/01/2023 14:57:59 03/31/20 23 04/01/2023 CBC (INCL UDES DIFF/ PLT) white blood cell count 6.0 thous and/u L 3.8-10 .8 normal Not Available [address], [address], 04/01/2023 14:58:00 03/31/20 23 04/01/2023 CBC (INCL UDES DIFF/ PLT) red blood cell count 4.11 debby on/uL 3.80-5 .10 normal Not Available [address], [address], 04/01/2023 14:58:00 03/31/2004/01/2023 CBC (INCL UDES DIFF/ PLT) hemoglobin 12.5 g/dL 11.7-1 5.5 normal Not Available [address], [address], 04/01/2023 14:58:00 03/31/20 23 04/01/2023 CBC (INCL UDES DIFF/ PLT) hematocrit 38.7 % 35.0-4 5.0 normal Not Available [address], [address], 04/01/2023 14:58:00 03/31/20 23 04/01/2023 CBC (INCL UDES DIFF/ PLT) MCV 94.2 fL 80.0-1 00.0 normal Not Available [address], [address], 04/01/2023 14:58:00 03/31/20 23 04/01/2023 CBC (INCL UDES DIFF/ PLT) MCH 30.4 pg 27.0-3 3.0 normal Not Available [address], [address], 04/01/2023 14:58:00 03/31/20 23 04/01/2023 CBC (INCL UDES DIFF/ PLT) MCHC 32.3 g/dL 32.0-3 6.0 normal Not Available [address], [address], 04/01/2023 14:58:00 03/31/2004/01/2023 CBC (INCL UDES DIFF/ PLT) RDW 13.3 % 11.0-1 5.0 normal Not Available [address], [address], 04/01/2023 14:58:00 03/31/2004/01/2023 CBC (INCL UDES DIFF/ PLT) platelet count 220 thous and/u L 140-40 0 normal Not Available [address], [address], 04/01/2023 14:58:00 03/31/2004/01/2023 CBC (INCL UDES DIFF/ PLT) MPV 10.5 fL 7.5-12 .5 normal Not Available [address], [address], 04/01/2023 14:58:00 03/31/2004/01/2023 CBC (INCL UDES DIFF/ PLT) absolute neutrophils 2940 cells /uL 1500-7 800 normal Not Available [address], [address], 04/01/2023 14:58:00 03/31/20 23 04/01/2023 CBC (INCL UDES DIFF/ PLT) absolute lymphocytes 2574 cells /uL 850-39 00 normal Not Available [address], [address], 04/01/2023 14:58:00 03/31/2004/01/2023 CBC (INCL UDES DIFF/ PLT) absolute monocytes 426 cells /uL 200-95 0 normal Not Available [address], [address], 04/01/2023 14:58:00 03/31/20 23 04/01/2023 CBC (INCL UDES DIFF/ PLT) absolute eosinophils 42 cells /uL 15-500 normal Not Available [facility] [address], [address], 04/01/2023 14:58:00 03/31/20 23 04/01/2023 CBC (INCL UDES DIFF/ PLT) absolute basophils 18 cells /uL 0-200 normal Not Available [facility] [address], [address], 04/01/2023 14:58:00 03/31/2004/01/2023 CBC (INCL UDES DIFF/ PLT) neutrophils 49 % normal Not Available [facility] [address], [address], 04/01/2023 14:58:00 03/31/20 23 04/01/2023 CBC (INCL UDES DIFF/ PLT) lymphocytes 42.9 % normal Not Available [facility] [address], [address], 04/01/2023 14:58:00 03/31/20 23 04/01/2023 CBC (INCL UDES DIFF/ PLT) monocytes 7.1 % normal Not Available [facility] [address], [address], 04/01/2023 14:58:00 03/31/20 23 04/01/2023 CBC (INCL UDES DIFF/ PLT) eosinophils 0.7 % normal Not Available [facility] [address], [address], 04/01/2023 14:58:00 03/31/20 23 04/01/2023 CBC (INCL UDES DIFF/ PLT) basophils 0.3 % normal Not Available [facility] [address], [address], 04/01/2023 14:58:00 03/31/20 23 04/01/2023 T4, FREE T4, free 1.2 NG/dL 0.8-1. 8 normal Not Available [address], [address], 04/01/2023 14:58:00 03/31/20 23 04/01/2023 TSH TSH 1.39 mIU/L 0.40-4 .50 normal Not Available [address], [address], 04/01/2023 14:58:01 11/25/19 24 11/26/2023 LIPID PANEL , STAND CAMPOS cholesterol, total 196 mg/dL <200 normal Not Available [address], [address], 11/26/2023 06:35:36 11/25/19 24 11/26/2023 LIPID PANEL , STAND CAMPOS HDL cholesterol 79 mg/dL > or = 50 normal Not Available [address], [address], 11/26/2023 06:35:36 11/25/19 24 11/26/2023 LIPID PANEL , STAND CAMPOS triglyceride s 68 mg/dL <150 normal Not Available [address], [address], 11/26/2023 06:35:36 11/25/19 24 11/26/2023 LIPID PANEL , ST[facility]AMPOS LDL-choleste rol 102 mg/dL _(anamaria c) high Refer ence range : <100 Ashely able range <100 mg/dL for prima ry preve ntion ; <70 mg/dL for patie nts with CHD or diabe tic patie nts with > or = 2 CHD risk facto rs. LDL-C is now calcu lated using the Melly n-Hop kins calcu geno n, which is a valid ated novel metho d jhonny levin r accur acy than the Fried duane equat ion in the estim ation of LDL-C . Melly n SS et al. VENUS. 2013; 310(1 9): 2061- 2068 (http ://ed ucati on.Rupert johnsonAaron [employer]. com/f aq/FA Q164) Not Available [facility] [address] [address] [place], [address], 11/26/2023 06:35:36 11/25/19 24 11/26/2023 LIPID PANEL , STAND CAMPOS chol/HDLC ratio 2.5 (calc ) <5.0 normal Not Available [facility] [address] [address] [address], [place], [address], 11/26/2023 06:35:36 11/25/19 24 11/26/2023 LIPID PANEL , STAND CAMPOS non HDL cholesterol 117 mg/dL _(anamaria c) <130 normal For patie nts with diabe karen plus 1 major ASCVD risk facto r, treat ing to a non-H DL-C goal of <100 mg/dL (LDL- C of <70 mg/dL ) is consi dered a thera peuti c optio n. Not Available [facility] [address] [address] [place], [address], 11/26/2023 06:35:36 11/25/19 24 11/26/2023 COMPR EHENS FRANCI METAB OLIC PANEL glucose 116 mg/dL 65-99 high Fasti ng refer ence inter jina For someo ne witho ut known diabe karen, a gluco se value betwe en 100 and 125 mg/dL is consi stent with predi abete s and shoul d be confi rmed with a follo w-up test. Not Available [facility] [address] [address] [place], [address], 11/26/2023 06:35:38 11/25/19 24 11/26/2023 COMPR EHENS FRANCI METAB OLIC PANEL urea nitrogen (BUN) 19 mg/dL 7-25 normal Not Available [facility] [address] [address] [place], [address], 11/26/2023 06:35:38 11/25/19 24 11/26/2023 COMPR EHENS FRANCI METAB OLIC PANEL creatinine 0.73 mg/dL 0.50-1 .05 normal Not Available [address], [address], 11/26/2023 06:35:38 11/25/19 24 11/26/2023 COMPR EHENS FRANCI METAB OLIC PANEL eGFR 89 mL/mi n/1.7 3m2 > or = 60 normal Not Available [address], [address], 11/26/2023 06:35:38 11/25/19 24 11/26/2023 COMPR EHENS FRANCI METAB OLIC PANEL BUN/creatini ne ratio SEE NOTE: (calc ) 6-22 Not Repor esteban: BUN and Creat inine are withi n refer ence range . Not Available [address], [address], 11/26/2023 06:35:38 11/25/19 24 11/26/2023 COMPR EHENS FRANCI METAB OLIC PANEL sodium 142 mmol/ L 135-14 6 normal Not Available [address], [address], 11/26/2023 06:35:38 11/25/19 24 11/26/2023 COMPR EHENS FRANCI METAB OLIC PANEL potassium 4.0 mmol/ L 3.5-5. 3 normal Not Available [address], [address], 11/26/2023 06:35:38 11/25/19 24 11/26/2023 COMPR EHENS FRANCI METAB OLIC PANEL chloride 103 mmol/ L 98-110 normal Not Available [address], [address], 11/26/2023 06:35:38 11/25/19 24 11/26/2023 COMPR EHENS FRANCI METAB OLIC PANEL carbon dioxide 33 mmol/ L 20-32 high Not Available [address], [address], 11/26/2023 06:35:38 11/25/19 24 11/26/2023 COMPR EHENS FRANCI METAB OLIC PANEL calcium 9.9 mg/dL 8.6-10 .4 normal Not Available [address], [address], 11/26/2023 06:35:38 11/25/19 24 11/26/2023 COMPR EHENS FRANCI METAB OLIC PANEL protein, total 6.4 g/dL 6.1-8. 1 normal Not Available [address], [address], 11/26/2023 06:35:38 11/25/19 24 11/26/2023 COMPR EHENS FRANCI METAB OLIC PANEL albumin 4.3 g/dL 3.6-5. 1 normal Not Available [address], [address], 11/26/2023 06:35:38 11/25/19 24 11/26/2023 COMPR EHENS FRANCI METAB OLIC PANEL globulin 2.1 g/dL_ (calc ) 1.9-3. 7 normal Not Available [address], [address], 11/26/2023 06:35:38 11/25/19 24 11/26/2023 COMPR EHENS FRANCI METAB OLIC PANEL albumin/glob ulin ratio 2.0 (calc ) 1.0-2. 5 normal Not Available [address], [address], 11/26/2023 06:35:38 11/25/19 24 11/26/2023 COMPR EHENS FRANCI METAB OLIC PANEL bilirubin, total 0.5 mg/dL 0.2-1. 2 normal Not Available [facility] [place] [address] [place], [address], 11/26/2023 06:35:38 11/25/19 24 11/26/2023 COMPR EHENS FRANCI METAB OLIC PANEL alkaline phosphatase 74 U/L 37-153 normal Not Available [facility] [address] [address] [place], [address], 11/26/2023 06:35:38 11/25/19 24 11/26/2023 COMPR EHENS FRANCI METAB OLIC PANEL AST 18 U/L 10-35 normal Not Available [address], [address], 11/26/2023 06:35:38 11/25/19 24 11/26/2023 COMPR EHENS FRANCI METAB OLIC PANEL ALT 14 U/L 6-29 normal Not Available [address], [address], 11/26/2023 06:35:38 11/25/19 24 11/26/2023 CBC (INCL UDES DIFF/ PLT) white blood cell count 5.2 thous and/u L 3.8-10 .8 normal Not Available [address], [address], 11/26/2023 06:35:39 11/25/19 24 11/26/2023 CBC (INCL UDES DIFF/ PLT) red blood cell count 4.41 debby on/uL 3.80-5 .10 normal Not Available [address], [address], 11/26/2023 06:35:39 11/25/19 24 11/26/2023 CBC (INCL UDES DIFF/ PLT) hemoglobin 13.7 g/dL 11.7-1 5.5 normal Not Available [facility] [address], [address], 11/26/2023 06:35:39 11/25/19 24 11/26/2023 CBC (INCL UDES DIFF/ PLT) hematocrit 41.4 % 35.0-4 5.0 normal Not Available [address], [address], 11/26/2023 06:35:39 11/25/19 24 11/26/2023 CBC (INCL UDES DIFF/ PLT) MCV 93.9 fL 80.0-1 00.0 normal Not Available [address], [address], 11/26/2023 06:35:39 11/25/19 24 11/26/2023 CBC (INCL UDES DIFF/ PLT) MCH 31.1 pg 27.0-3 3.0 normal Not Available [address], [address], 11/26/2023 06:35:39 11/25/19 24 11/26/2023 CBC (INCL UDES DIFF/ PLT) MCHC 33.1 g/dL 32.0-3 6.0 normal Not Available [address], [address], 11/26/2023 06:35:39 11/25/19 24 11/26/2023 CBC (INCL UDES DIFF/ PLT) RDW 12.2 % 11.0-1 5.0 normal Not Available [address], [address], 11/26/2023 06:35:39 11/25/19 24 11/26/2023 CBC (INCL UDES DIFF/ PLT) platelet count 231 thous and/u L 140-40 0 normal Not Available [address], [address], 11/26/2023 06:35:39 11/25/19 24 11/26/2023 CBC (INCL UDES DIFF/ PLT) MPV 10.9 fL 7.5-12 .5 normal Not Available [address], [address], 11/26/2023 06:35:39 11/25/19 24 11/26/2023 CBC (INCL UDES DIFF/ PLT) absolute neutrophils 2699 cells /uL 1500-7 800 normal Not Available [address], [address], 11/26/2023 06:35:39 11/25/19 24 11/26/2023 CBC (INCL UDES DIFF/ PLT) absolute lymphocytes 1872 cells /uL 850-39 00 normal Not Available [address], [address], 11/26/2023 06:35:39 11/25/19 24 11/26/2023 CBC (INCL UDES DIFF/ PLT) absolute monocytes 390 cells /uL 200-95 0 normal Not Available [address], [address], 11/26/2023 06:35:39 11/25/19 24 11/26/2023 CBC (INCL UDES DIFF/ PLT) absolute eosinophils 198 cells /uL 15-500 normal Not Available [address], [address], 11/26/2023 06:35:39 11/25/19 24 11/26/2023 CBC (INCL UDES DIFF/ PLT) absolute basophils 42 cells /uL 0-200 normal Not Available [facility] [address], [address], 11/26/2023 06:35:39 11/25/19 24 11/26/2023 CBC (INCL UDES DIFF/ PLT) neutrophils 51.9 % normal Not Available [address], [address], 11/26/2023 06:35:39 11/25/19 24 11/26/2023 CBC (INCL UDES DIFF/ PLT) lymphocytes 36.0 % normal Not Available [address], [address], 11/26/2023 06:35:39 11/25/19 24 11/26/2023 CBC (INCL UDES DIFF/ PLT) monocytes 7.5 % normal Not Available [facility] [address], [address], 11/26/2023 06:35:39 11/25/19 24 11/26/2023 CBC (INCL UDES DIFF/ PLT) eosinophils 3.8 % normal Not Available [facility] [address], [address], 11/26/2023 06:35:39 11/25/19 24 11/26/2023 CBC (INCL UDES DIFF/ PLT) basophils 0.8 % normal Not Available [address], [address], 11/26/2023 06:35:39 11/25/19 24 11/26/2023 T4, FREE T4, free 1.1 NG/dL 0.8-1. 8 normal Not Available [address], [address], 11/26/2023 06:35:40 11/25/19 24 11/26/2023 TSH TSH 1.58 mIU/L 0.40-4 .50 normal Not Available [address], [address], 11/26/2023 06:35:40 11/25/19 24 11/26/2023 HEMOG LOBIN A1C hemoglobin A1C 5.7 %_of_ total _HGB <5.7 high For someo ne witho ut known diabe karen, a hemog lobin A1c value betwe en 5.7% and 6.4% is consi stent with predi abete s and shoul d be confi rmed with a follo w-up test. For someo ne with known diabe karen, a value <7% indic ates that their diabe karen is well contr olled . A1c targe ts shoul d be indiv idual ized based on durat ion of diabe karen, age, comor bid condi tions , and other consi derat ions. This assay resul t is consi stent with an incre ased risk of diabe karen. Curre ntly, no conse nsus exist s juan manrique use of hemog lobin A1c for diagn osis of diabe karen for child luisa. HbA1c perfo rmed on Abbot t platf orm. Not Available [facility] [address] [place], [address], 11/26/2023 06:35:41 11/15/1911/16/2024 LIPID PANEL , STAND CAMPOS cholesterol, total 219 mg/dL <200 high Not Available [facility] [address], [address], 11/16/2024 08:12:33 11/15/1911/16/2024 LIPID PANEL , STAND CAMPOS HDL cholesterol 78 mg/dL > or = 50 normal Not Available [facility] [address], [address], 11/16/2024 08:12:33 11/15/1911/16/2024 LIPID PANEL , STAND CAMPOS triglyceride s 70 mg/dL <150 normal Not Available [facility] [address], [address], 11/16/2024 08:12:33 11/15/1911/16/2024 LIPID PANEL , STAND CAMPOS LDL-choleste rol 125 mg/dL _(anamaria c) high Refer ence range : <100 Ashely able range <100 mg/dL for prima ry preve ntion ; <70 mg/dL for patie nts with CHD or diabe tic patie nts with > or = 2 CHD risk facto rs. LDL-C is now calcu lated using the [facility] n-Hop karel lora n, which is a valid ated novel metho d provi ding poonam r accur acy than the Fried duane equat ion in the estim ation of LDL-C . Melly n SS et al. VENUS. 2013; 310(1 9): 2061- 2068 (http ://ed ucati on.Qu Johnnie HubHub. com/f aq/FA Q164) Not Available [facility] [address] [address] [address], [place], [address], 11/16/2024 08:12:33 11/15/19 25 11/16/2024 LIPID PANEL , STAND CAMPOS chol/HDLC ratio 2.8 (calc ) <5.0 normal Not Available [facility] [address] [address] [address], [place], [address], 11/16/2024 08:12:33 11/15/1911/16/2024 LIPID PANEL , STAND CAMPOS non HDL cholesterol 141 mg/dL _(anamaria c) <130 high For patie nts with diabe karen plus 1 major ASCVD risk facto r, treat ing to a non-H DL-C goal of <100 mg/dL (LDL- C of <70 mg/dL ) is consi dered a thera peuti c optio n. Not Available [address] [address] [address], [place], [address], 11/16/2024 08:12:33 11/15/1911/16/2024 MAGNE SIUM magnesium 2.4 mg/dL 1.5-2. 5 normal Not Available [facility] [address] [address] [address], [place], [address], 11/16/2024 08:12:34 11/15/1911/16/2024 COMPR EHENS FRACNI METAB OLIC PANEL glucose 115 mg/dL 65-99 high Fasti ng refer ence inter jina For someo ne witho ut known diabe karen, a gluco se value betwe en 100 and 125 mg/dL is consi stent with predi abete s and shoul d be confi rmed with a follo w-up test. Not Available [address], [address], 11/16/2024 08:12:35 11/15/19 25 11/16/2024 COMPR EHENS FRANCI METAB OLIC PANEL urea nitrogen (BUN) 21 mg/dL 7-25 normal Not Available [address], [address], 11/16/2024 08:12:35 11/15/19 25 11/16/2024 COMPR EHENS FRANCI METAB OLIC PANEL creatinine 0.74 mg/dL 0.60-1 .00 normal Not Available [address], [address], 11/16/2024 08:12:35 11/15/19 25 11/16/2024 COMPR EHENS FRANCI METAB OLIC PANEL eGFR 87 mL/mi n/1.7 3m2 > or = 60 normal Not Available [address], [address], 11/16/2024 08:12:35 11/15/1911/16/2024 COMPR EHENS FRANCI METAB OLIC PANEL BUN/creatini ne ratio SEE NOTE: (calc ) 6-22 Not Repor esteban: BUN and Creat inine are withi n refer ence range . Not Available [address], [address], 11/16/2024 08:12:35 11/15/19 25 11/16/2024 COMPR EHENS FRANCI METAB OLIC PANEL sodium 141 mmol/ L 135-14 6 normal Not Available [address], [address], 11/16/2024 08:12:35 11/15/19 25 11/16/2024 COMPR EHENS FRANCI METAB OLIC PANEL potassium 4.2 mmol/ L 3.5-5. 3 normal Not Available [facility] [address], [address], 11/16/2024 08:12:35 11/15/19 25 11/16/2024 COMPR EHENS FRANCI METAB OLIC PANEL chloride 102 mmol/ L 98-110 normal Not Available [facility] [address], [address], 11/16/2024 08:12:35 11/15/19 25 11/16/2024 COMPR EHENS FRANCI METAB OLIC PANEL carbon dioxide 33 mmol/ L 20-32 high Not Available [facility] [address], [address], 11/16/2024 08:12:35 11/15/19 25 11/16/2024 COMPR EHENS FRANCI METAB OLIC PANEL calcium 9.7 mg/dL 8.6-10 .4 normal Not Available [facility] [address], [address], 11/16/2024 08:12:35 11/15/19 25 11/16/2024 COMPR EHENS FRANCI METAB OLIC PANEL protein, total 6.6 g/dL 6.1-8. 1 normal Not Available [facility] [address], [address], 11/16/2024 08:12:35 11/15/19 25 11/16/2024 COMPR EHENS FRANCI METAB OLIC PANEL albumin 4.5 g/dL 3.6-5. 1 normal Not Available [facility] [address], [address], 11/16/2024 08:12:35 11/15/19 25 11/16/2024 COMPR EHENS FRANCI METAB OLIC PANEL globulin 2.1 g/dL_ (calc ) 1.9-3. 7 normal Not Available [facility] [address], [address], 11/16/2024 08:12:35 11/15/19 25 11/16/2024 COMPR EHENS FRANCI METAB OLIC PANEL albumin/glob ulin ratio 2.1 (calc ) 1.0-2. 5 normal Not Available [address], [address], 11/16/2024 08:12:35 11/15/19 25 11/16/2024 COMPR EHENS FRANCI METAB OLIC PANEL bilirubin, total 0.6 mg/dL 0.2-1. 2 normal Not Available [address], [address], 11/16/2024 08:12:35 11/15/19 25 11/16/2024 COMPR EHENS FRANCI METAB OLIC PANEL alkaline phosphatase 61 U/L 37-153 normal Not Available [address], [address], 11/16/2024 08:12:35 11/15/19 25 11/16/2024 COMPR EHENS FRANCI METAB OLIC PANEL AST 20 U/L 10-35 normal Not Available [address], [address], 11/16/2024 08:12:35 11/15/19 25 11/16/2024 COMPR EHENS FRANCI METAB OLIC PANEL ALT 17 U/L 6-29 normal Not Available [address], [address], 11/16/2024 08:12:35 11/15/19 25 11/16/2024 CBC (INCL UDES DIFF/ PLT) white blood cell count 5.7 thous and/u L 3.8-10 .8 normal Not Available [address], [address], 11/16/2024 08:12:37 11/15/19 25 11/16/2024 CBC (INCL UDES DIFF/ PLT) red blood cell count 4.41 debby on/uL 3.80-5 .10 normal Not Available [address], [address], 11/16/2024 08:12:37 11/15/1911/16/2024 CBC (INCL UDES DIFF/ PLT) hemoglobin 13.9 g/dL 11.7-1 5.5 normal Not Available [address], [address], 11/16/2024 08:12:37 11/15/1911/16/2024 CBC (INCL UDES DIFF/ PLT) hematocrit 43.3 % 35.0-4 5.0 normal Not Available [address], [address], 11/16/2024 08:12:37 11/15/1911/16/2024 CBC (INCL UDES DIFF/ PLT) MCV 98.2 fL 80.0-1 00.0 normal Not Available [address], [address], 11/16/2024 08:12:37 11/15/1911/16/2024 CBC (INCL UDES DIFF/ PLT) MCH 31.5 pg 27.0-3 3.0 normal Not Available [address], [address], 11/16/2024 08:12:37 11/15/1911/16/2024 CBC (INCL UDES DIFF/ PLT) MCHC 32.1 g/dL 32.0-3 6.0 normal For adult s, a sligh t decre ase in the calcu lated MCHC value (in the range of 30 to 32 g/dL) is most likel y not clini paula zafari roni t; yusuf er, it shoul d be inter prete d with cauti on in corre latio n with other red cell jason eters and the patie nt's clini anamaria condi tion. Not Available [facility] [address], [address], 11/16/2024 08:12:37 11/15/1911/16/2024 CBC (INCL UDES DIFF/ PLT) RDW 12.5 % 11.0-1 5.0 normal Not Available [address], [address], 11/16/2024 08:12:37 11/15/1911/16/2024 CBC (INCL UDES DIFF/ PLT) platelet count 234 thous and/u L 140-40 0 normal Not Available [address], [address], 11/16/2024 08:12:37 11/15/1911/16/2024 CBC (INCL UDES DIFF/ PLT) MPV 11.1 fL 7.5-12 .5 normal Not Available [address], [address], 11/16/2024 08:12:37 11/15/1911/16/2024 CBC (INCL UDES DIFF/ PLT) absolute neutrophils 2993 cells /uL 1500-7 800 normal Not Available [address], [address], 11/16/2024 08:12:37 11/15/1911/16/2024 CBC (INCL UDES DIFF/ PLT) absolute lymphocytes 1978 cells /uL 850-39 00 normal Not Available [address], [address], 11/16/2024 08:12:37 11/15/1911/16/2024 CBC (INCL UDES DIFF/ PLT) absolute monocytes 456 cells /uL 200-95 0 normal Not Available [address], [address], 11/16/2024 08:12:37 11/15/1911/16/2024 CBC (INCL UDES DIFF/ PLT) absolute eosinophils 222 cells /uL 15-500 normal Not Available [address], [address], 11/16/2024 08:12:37 11/15/1911/16/2024 CBC (INCL UDES DIFF/ PLT) absolute basophils 51 cells /uL 0-200 normal Not Available [address], [address], 11/16/2024 08:12:37 11/15/1911/16/2024 CBC (INCL UDES DIFF/ PLT) neutrophils 52.5 % normal Not Available [facility] [address], [address], 11/16/2024 08:12:37 11/15/1911/16/2024 CBC (INCL UDES DIFF/ PLT) lymphocytes 34.7 % normal Not Available [address], [address], 11/16/2024 08:12:37 11/15/1911/16/2024 CBC (INCL UDES DIFF/ PLT) monocytes 8.0 % normal Not Available [address], [address], 11/16/2024 08:12:37 11/15/1911/16/2024 CBC (INCL UDES DIFF/ PLT) eosinophils 3.9 % normal Not Available [facility] [address], [address], 11/16/2024 08:12:37 11/15/1911/16/2024 CBC (INCL UDES DIFF/ PLT) basophils 0.9 % normal Not Available [address], [address], 11/16/2024 08:12:37 11/15/1911/16/2024 T4, FREE T4, free 1.3 NG/dL 0.8-1. 8 normal Not Available [facility] [address] [place], [address], 11/16/2024 08:12:38 11/15/1911/16/2024 TSH TSH 1.20 mIU/L 0.40-4 .50 normal Not Available [facility] [address] [address] [place], [address], 11/16/2024 08:12:39 11/15/1911/16/2024 VITAM IN B12 vitamin B12 781 pg/mL 200-11 00 normal Not Available [facility] [address] [address] [place], [address], 11/16/2024 08:12:40 11/15/1911/16/2024 VITAM IN D,25- OH,TO KYUNG,I A vitamin D,25-oh,tota l,ia 47 NG/mL 30-100 normal Vitam in D Statu s 25-OH Vitam in D: Defic iency : <20 ng/mL Insuf ficie ncy: 20 - 29 ng/mL Optim al: > or = 30 ng/mL For 25-OH Vitam in D testi ng on patie nts on D2-rhoades pplem entat ion and patie nts for whom quant itati on of D2 and D3 fract ions is requi red, the [facility](TM ) 25-OH VIT D, (D2,D 3), LC/MS /MS is recom mikhail d: order code 45522 (tano ents >2yrs ). See Note 1 Note 1 For addit ional infor tyler soares refer to http: //naima richter.Rigoberto stDia gnost ics.c om/fa q/FAQ 199 (This link is being provi ded for infor kar day/ javy schulz purpo ses only. ) Not Available [facility] [address] [address] [address] , [place], [address], 11/16/2024 08:12:41 02/16/20 23 XR, knee No observ ation record ed. Not Available 2022 17:05:48 04/06/20 XR, knee No observ ation record ed. Not Available 2022 08:37:41 04/11/20 23 04/11/2023 yani chadwick jed, bilat [facility] AL [facility] [address], [place] [address] [phone] Rohith chadwick Name: JEWELL NAPIER Access ion #: [id number] Sex: F : 1954 8 Locati on: RAD Attend ing Physic shelley: LUIS BERMUDEZ CE Orderi ng Physic shelley: LUIS BERMUDEZ CE Exam Date: 04/11/20 9:45 AM Exam Name: MG GEORGES BREAST JED BILAT Admitt ing Diagno sis(es ): MAMMOG CHARMAINE REPORT - FINAL EXAM: MG SCRN BREAST JED BILAT HISTOR Y: SCREEN ING MAMMOG EILEEN 68-yea r-old female with no curren t breast compla ints. The rohith t has a histor y of benign right breast biopsy in 1999. The rohith t has a family histor y of breast cancer in a sister at age 4848 years old. COMPAR PALMER: 2020, 2019 TECHNI QUE: Bilate ral CC and MLO views of the breast s were perfor med. Digita l Mammog charmaine images were obtain ed. CAD (compu ter assist ed detect ion) was utiliz ed. 3D Digita l breast tomosy nthesi s was perfor med and used in the interp retati on of images . FINDIN GS: The breast s are extrem emani dense, which lowers the sensit ivity of mammog charmaine. Page 1 of 2 [facility] Rohith chadwick Name: JEWELL NAPIER Access ion #: [id number] Sex: F : 1954 8 Exam Date: 04/11/20 9:45 AM Exam Name: SCRN BREAST JED BILAT Admitt ing Diagno sis(es ): No new masses , develo ping asymme tries, suspic ious calcif icatio ns, or david ectura l distor tion are seen. IMPRES ELIECER: BIRADS 1: Assess ment comple te. Negati ve. Recomm end annual screen ing mammog charmaine. Accord ing to the [employer], yearly mammog kevin are recomm ended starti ng at age 40 and contin uing as long as the woman is in good health . Clinic al Breast Exam should be part of the period health exam-a bout every 3 years for women in their 20s and 30s and every year for women 40 and over. Breast self-e xam is an option for women in their 20s. Any breast change noted on the breast self-e xam she would be report ed prompt ly to the [facility]. A negati ve mammog charmaine report should not discou rage follow -up or biopsy of a clinic ally signif icant findin g and/or abnorm ality. Dense breast tissue may obscur e small neopla sms. This rohith chadwick has been entere d into a mammog charmaine remind er system with a target date for her next mammog eileen. Create d and electr onical ly signed by: Kameron garner MD Signed Date: 04/11/20 10:27 AM (CT) Dictat ed by: Kameron garner MD (CT) (CT) Page [address] of [address] (Imaging) [address] [place], [address], 04/11/2023 14:01:13 04/25/20 23 XR, ankle No observ ation record ed. [email or web address] s_gmg Ortho Yaniv Horta [address], [place], [address], 05/07/2023 18:54:49 01/19/20 24 01/11/2024 XR, knee No observ ation record ed. [email or web address] Not Available 2023 15:52:55 01/19/20 XR, knee No observ ation record ed. [email or web address] Not Available 2023 15:52:55 06/27/20 24 06/27/2024 screpatsy liu t jed, bilat [facility] Y [facility] MEDICA [facility] [address], [place] [address] [phone] Rohith chadwick Name: JEWELL NAPIER Access ion #: [id number] Sex: F : 1954 4 Locati on: RAD Attend ing Physic shelley: LUIS BERMUDEZ CE Orderi ng Physic shelley: LUIS BERMUDEZ CE Exam Date: 11:01 AM Exam Name: MG GEORGES BREAST JED BILAT Admitt ing Diagno sis(es ): MAMMOG CHARMAINE REPORT - FINAL EXAM: MG GEORGES BREAST JED BILAT HISTOR Y: encoun ter for neopla sm of breast 69-yea r-old female with no curren t breast compla ints. The rohith t has a histor y of right breast benign excisi onal biopsy in 1999. The rohith chadwick has a family histor y of breast cancer in her sister at age 4848 years old. COMPAR PALMER: 2022, 2020 TECHNI QUE: Bilate ral CC and MLO views of the breast s were perfor med. Digita l Mammog charmaine images were obtain ed. CAD (compu ter assist ed detect ion) was utiliz ed. 3D Digita l breast tomosy nthesi s was perfor med and used in the interp retati on of images . FINDIN GS: Page 1 of 3 [facility] Rohith chadwick Name: JEWELL NAPIER Access ion #: [id number] Sex: F : 1954 5 Exam Date: 11:01 AM Exam Name: MG GEORGES BREAST JED BILAT Admitt ing Diagno sis(es ): The breast s are extrem emani dense, which lowers the sensit ivity of mammog charmaine. No masses , asymme tries, suspic ious calcif icatio ns, or david ectura l distor tion are seen. IMPRES ELIECER: BIRADS 1: Assess ment comple te. Negati ve. Recomm end annual screen ing mammog charmaine. Accord ing to the [employer], yearly mammog kevin are recomm ended starti ng at age 40 and contin uing as long as the woman is in good health . Clinic al Breast Exam should be part of the period ic health exam-a bout every 3 years for women in their 20s and 30s and every year for women 40 and over. Breast self-e xam is an option for women in their 20s. Any breast change noted on the breast self-e xam she would be report ed prompt ly [facility]. A negati ve mammog charmaine report should not discou rage follow -up or biopsy of a clinic ally signif icant findin g and/or abnorm ality. Dense breast tissue may obscur e small neopla sms. This rohith chadwick has been entere d into a mammog charmaine remind er system with a target date for her next mammog eileen. Create d and electr onical ly signed by: Kameron garner MD Signed Date: 11:18 AM (CT) Dictat ed by: Kameron garner MD DD: 11:18 AM (CT) Page 2 of 3 [facility] Rohith chadwick Name: JEWELL NAPIER [facility] ion #: [id number] Sex: F : 1954 5 Exam Date: 11:01 AM Exam Name: MG SCRN BREAST JED BILAT Admitt ing Diagno sis(es ): DT: 11:18 AM (CT) Page 3 of [address] (Imaging) [address] [place] [address], [address], 06/27/2024 14:13:38 Result Notes None recorded. Problems Name Problem SNOMED Code Status Onset Date Resolution Date Notes Provider Name and Address Organization Details Recorded Time Contusion of chest 98069713 Completed Not Available [facility] 3 07:29:53 Hyperchol esterolem ia 99183076 Active 2016 Not Available [facility] 3 07:29:54 Radiother apy follow-up 585366183 Active Not Available [facility] 3 07:29:54 Raynaud's disease 544763191 Active 2018 Not Available [facility] 3 07:29:54 Asthma 515676794 Active 2017 Not Available [facility] 3 07:29:54 Sciatica 71628956 Active Not Available [facility] 3 07:29:54 Gastroeso phageal reflux disease 987597388 Active Not Available [facility] 3 07:29:54 Osteoarth ritis of knee 643843619 Active Not Available [facility] 3 07:29:54 Menopausa l and postmenop ausal disorders 290730906 Active Not Available [facility] 3 07:29:54 Pure hyperchol esterolem ia 272986034 Completed Not Available [facility] 3 07:29:54 Osteopeni a 172714177 Active Not Available [facility] 3 07:29:54 Restless legs 85907967 Active Not Available [facility] 3 07:29:54 Closed fracture of lateral malleolus 90403709 Active Not Available [facility] 3 07:29:55 Vitamin D deficienc y 18402469 Active 2021 Not Available [facility] 3 07:29:55 Depressiv e disorder 23294635 Active Not Available [facility] 3 07:29:55 Illness 53313382 Active Not Available [facility] 3 07:29:55 Osteoarth ritis 623746202 Active Not Available [facility] 3 07:29:55 Vertigo 184380281 Active Not Available [facility] 3 07:29:55 Chronic sinusitis 00257014 Active Not Available [facility] 3 07:29:55 Fracture of lower leg 432210987 Active Not Available [facility] 3 07:29:56 Polyneuro luigi 45631831 Active Not Available [facility] 3 07:29:56 Diverticu litis of sigmoid colon 101142125 Active 2019 Not Available [facility] 3 07:29:56 Pain of left knee joint [id number] 4107 Active 2021 Not Available [facility] 3 07:29:56 Bacterial arthritis 89409382 Active 2021 Not Available [facility] 3 07:29:56 Osteoporo sis 47964187 Completed Not Available [facility] 3 07:29:56 Sleep apnea 27934941 Active Not Available [facility] 3 07:29:57 Obstructi ve sleep apnea syndrome 97595206 Active 2020 Not Available [facility] 3 07:29:57 Hiatal hernia 27487070 Active 2016 Not Available [facility] 3 07:29:57 Essential hypertens ion 03558916 Active 2022 Beto Bermudez MD [address], [address], [place], [address] , [facility] 3 17:09:44 Pain of left ankle joint [id number] 462912 Active 2022 ACTA Felix null, [place] - S [facility] 3 15:02:48 Hyperglyc emia 29297403 Active 2022 Beto Bermudez MD [address], [address], [place], [address] , [facility] 3 15:06:54 Recurrent urinary tract infection 664191658 Active 2023 Manjula Llanes CMA null, [place] - [facility] 4 17:44:55 Overactiv e urinary bladder 228852014 Active 2023 Beto Bermudez MD [address], [address], [place], [address] , [facility] 15:43:30 Problem Notes None recorded. Procedures Surgical History Date Name Laterality Status Provider Name and Address Organization Details Recorded Time 05/09/20 24 Medicare Wellness CPT Code, subsequent completed Courtney Flanagan RN [facility] 05/09/2024 15:49:38 03/15/20 23 Medicare Wellness CPT Code, subsequent completed Martine Bernal RN [facility] 03/15/2023 15:42:51 08/13/20 19 Most Recent Bone Density completed Not Available [facility] 01/05/2023 07:26:23 06/12/20 18 Date of Last Colonoscopy completed Not Available [facility] 01/05/2023 07:26:23 Imaging Results Imaging Date Name Status LastModified by Organiz ation Details LastModified Time 02/15/2023 XR, knee completed [email or web address] Information no t available 02/15/2023 17:05:48 04/06/2023 XR, knee completed [email or web address] Information no t available 04/06/2023 08:37:41 04/11/2023 screening breast jed, bilat completed [email or web address] [facility] (Imaging) [address] [place], [address], 04/11/2023 14:01:13 04/25/2023 XR, ankle completed [email or web address] [facility] [address], [place], [address], 05/07/2023 18:54:49 01/11/2024 XR, knee completed Information no t available 01/19/2024 15:52:55 01/19/2024 XR, knee completed [email or web address] Information no t available 01/19/2024 15:52:55 06/27/2024 screening breast jed, bilat completed [email or web address] [facility] (Imaging) [address] [place], [address], 06/27/2024 14:13:38 Procedure Notes None recorded. Medical Equipment None Reported. Allergies Allergen ID Allergen Name Allergen Category Reaction Reaction Severity Criticality Documentation Date Start Date Code Code System Note Provider Name and Address Organization Details Recorded Time 39182 acetamino phen / hydrocodo ne medicatio n Not available Not available Not available 01/05/2023 61625 2 RxNorm Not Available [facility] 3 07:35:46 27732 vancomyci n medicatio n other severe Not available 01/05/2023 84154 RxNorm DRES syndr ome Not Available [facility] 3 07:35:46 97968 Rocephin medicatio n other severe Not available 01/05/2023 9449 RxNorm DRES Syndr ome Not Available [facility] 3 07:35:46 48945 Vaccine product containin g only Influenza virus antigen (medicina l product) medicatio n Not available Not available Not available 01/05/2023 44058 79628 105 SNOMED Manjula Llanes, [employer] null, [place] - [facility] 4 10:46:27 40971 hydrocodo ne Not available rash Not available Not available 01/05/2023 5489 RxNorm Not Available [facility] 3 07:35:46 Medications Name Sig Start Date Stop Date Status Note LastModified by Organization Details LastModified Time celecoxib 200 mg capsule 03/06 completed Not Available Not Available Not Available amoxicill in 500 mg capsule TAKE 4 CAPSULES 1 HOUR BEFORE DENTAL APPOINTM ENT. active Not Available Not Available No t Available Tylenol-C odeine #4 300 mg-60 mg tablet Take 1 tablet every 6 hours by oral route. active Not Available Not Available No t Available promethaz ine-DM 6.25 mg-15 mg/5 mL oral syrup TAKE 5 ML BY MOUTH EVERY 4 HOURS NEEDED FOR COUGH FOR UP TO 14 DAYS. 04/29 completed Not Available Not Available Not Available doxycycli ne hyclate 100 mg capsule TAKE 1 CAPSULE BY MOUTH TWICE A DAY 10/08 completed Not Available Not Available Not Available esterifie d estrogens -methylte stosteron e 0.625 mg-1.25 mg tablet 1 tab po QDay active Not Available Not Available No t Available ciproflox acin 750 mg tablet TAKE 1 TABLET BY MOUTH TWICE A DAY FOR 21 DAYS 04/25 completed Not Available Not Available Not Available oxybutyni n chloride ER 10 mg tablet,ex tended release 24 hr TAKE 1 TABLET BY MOUTH EVERY DAY active Not Available Not Available No t Available azithromy natalee 250 mg tablet TAKE 2 TABLETS BY MOUTH TODAY, THEN TAKE 1 TABLET DAILY FOR 4 DAYS 03/15 completed Not Available Not Available Not Available pravastat in 40 mg tablet TAKE 1 TABLET BY MOUTH EVERY DAY 2023 active Not Available Not Available Not Avai lable Lidocaine Viscous 2 % mucosal solution 03/15 completed Not Available Not Available Not Available ofloxacin 0.3 % eye drops INSTILL 1 DROP INTO AFFECTED EYE THREE TIMES A DAY DIRECTED TO BEGIN TWO DAYS PRIOR TO SURGERY 10/21 completed Not Available Not Available Not Available benzonata te 200 mg capsule Take 1 capsule 3 times a day by oral route. 02/04 completed Not Available Not Available Not Available valacyclo vir 1 gram tablet Take 1 tablet 3 times a day by oral route. 04/29 completed Not Available Not Available Not Available meloxicam 15 mg tablet TAKE 1 TABLET BY MOUTH EVERY DAY 03/15 completed Not Available Not Available Not Available ondansetr on HCl 4 mg tablet TAKE 1 TABLET BY MOUTH EVERY 6 HOURS NEEDED FOR NAUSEA/V OMITING 04/25 completed Not Available Not Available Not Available prednison e 20 mg tablet TAKE 1 TABLET BY MOUTH DAILY FOR 5 DAYS 09/26 completed Not Available Not Available Not Available alendrona te 70 mg tablet TAKE 1 TABLET BY MOUTH ONCE WEEKLY active Not Available Not Available No t Available vancomyci n 5 gram intraveno us solution 04/25 completed Not Available Not Available Not Available ciproflox acin 500 mg tablet TAKE 1 TABLET BY MOUTH TWICE A DAY 04/25 completed Not Available Not Available Not Available sulfameth oxazole 800 mg-trimet hoprim 160 mg tablet TAKE 1 TABLET BY MOUTH TWICE A DAY FOR 10 DAYS 10/08 completed Not Available Not Available Not Available aspirin 81 mg tablet,de layed release TAKE 1 TABLET BY MOUTH 2 TIMES A DAY. 04/25 completed Not Available Not Available Not Available tramadol 50 mg tablet TAKE 1 TABLET (50 MG TOTAL) BY MOUTH EVERY 6 (SIX) HOURS NEEDED FOR PAIN FOR UP TO 42 DOSES 04/25 completed Not Available Not Available Not Available triamtere ne 37.5 mg-hydroc hlorothia zide 25 mg capsule TAKE 1 CAPSULE BY MOUTH EVERY DAY 2024 active Not Available Not Available Not Avai lable Zantac 150 mg tablet Take 1 tablet twice a day by oral route. 08/08 completed Not Available Not Available Not Available ketorolac 0.5 % eye drops INSTILL 1 DROP THREE TIMES A DAY BEGINNIN G 2 DAYS BEFORE SURGERY 03/26 completed Not Available Not Available Not Available meloxicam 7.5 mg tablet Take 1 tablet every day by oral route. active Not Available Not Available No t Available Tessalon Perles 100 mg capsule Take 1 capsule 3 times a day by oral route. active Not Available Not Available No t Available alprazola m 0.5 mg tablet TAKE 1 TABLET BY MOUTH THREE TIMES A DAY 2024 active Not Available Not Available Not Avai lable prednisol one acetate 1 % eye drops,elder pension INSTILL 1 DROP INTO AFFECTED EYE THREE TIMES A DAY TO BEGIN AFTER SURGERY 03/26 completed Not Available Not Available Not Available Mapap (acetamin ophen) 500 mg capsule TAKE 2 TABLETS BY MOUTH EVERY 8 HOURS 03/15 completed Not Available Not Available Not Available Kenalog 10 mg/mL suspensio n for injection In office injectio n administ ered by the provider 02/04 completed [facility]: [id number] 4-20 Not Available Not Available Not Available Flagyl 500 mg tablet Take 1 tablet every 8 hours by oral route. 08/05 completed Not Available Not Available Not Available phenazopy ridine 100 mg tablet TAKE 1 TABLET BY MOUTH 3 TIMES DAILY FOR 3 DAYS. active Not Available Not Available No t Available cephalexi n 500 mg capsule TAKE 4 CAPSULES BY MOUTH 1 HOUR PRIOR TO APPOINTM ENT 04/29 completed Not Available Not Available Not Available triamtere ne 37.5 mg-hydroc hlorothia zide 25 mg tablet TAKE 1 TABLET DAILY 03/06 completed Not Available Not Available Not Available omeprazol e 20 mg capsule,d elayed release TAKE 1 CAPSULE BY MOUTH EVERY DAY active Not Available Not Available No t Available hydrocort isone 2.5 % topical cream MIX WITH KETOCONA ZOLE CREAM AND APPLY TWICE DAILY X2 WEEKS. LIMIT 2 WEEKS PER MONTH 04/25 completed Not Available Not Available Not Available mupirocin 2 % topical ointment 03/15 completed Not Available Not Available Not Available Levaquin 500 mg tablet Take 1 tablet every 24 hours by oral route. active Not Available Not Available No t Available vancomyci n 10 gram intraveno us solution 04/25 completed Not Available Not Available Not Available methylpre dnisolone 4 mg tablets in a dose pack TAKE 6 TABLETS ON DAY 1 DIRECTED ON PACKAGE AND DECREASE BY 1 TAB EACH DAY FOR A TOTAL OF 6 DAYS 08/06 completed Not Available Not Available Not Available ketoconaz ole 2 % topical cream MIX WITH MOMETASO NE CREAM AND APPLY ONCE DAILY TO AFFECTED AREAS. MAXIMUM 5 DAYS PER WEEK. active Not Available Not Available No t Available ceftriaxo ne 10 gram solution for injection 03/15 completed Not Available Not Available Not Available cefdinir 300 mg capsule Take 1 capsule every 12 hours by oral route. 02/04 completed Not Available Not Available Not Available fluticaso ne propionat e 50 mcg/actua tion nasal spray,elder pension USE 2 SPRAYS IN EACH NOSTRIL DAILY 04/25 completed Not Available Not Available Not Available mometason e 0.1 % topical cream MIX WITH KETOCONA ZOLE CREAM AND APPLY TO AFFECTED AREAS ONCE DAILY NEEDED, MAX OF 5 DAYS PER WEEK active Not Available Not Available No t Available amoxicill in 875 mg-potass ium clavulana te 125 mg tablet TAKE 1 TABLET BY MOUTH TWICE DAILY WITH FOOD 10/08 completed Not Available Not Available Not Available ceftriaxo ne 2 gram solution for injection 03/15 completed Not Available Not Available Not Available Ventolin HFA 90 mcg/actua tion aerosol inhaler Inhale 2 puffs every 4 hours by inhalati on route. 03/26 completed Not Available Not Available Not Available oxycodone 5 mg tablet TAKE 1 TABLET (5 MG TOTAL) BY MOUTH EVERY 4 HOURS NEEDED PAIN FOR UP TO 30 DOSES 03/15 completed Not Available Not Available Not Available Estrace 0.01% (0.1 mg/gram) vaginal cream Insert 0.5 g twice a week by vaginal route as needed. 09/11 completed Not Available Not Available Not Available escitalop eileen 20 mg tablet TAKE 1 TABLET BY MOUTH EVERY DAY active Not Available Not Available No t Available Wellbutri n XL 150 mg 24 hr tablet, extended release Take 1 tablet every day by oral route. 08/08 completed Not Available Not Available Not Available Wellbutri n XL 300 mg 24 hr tablet, extended release once daily 08/08 completed Not Available Not Available Not Available daptomyci n 500 mg intraveno us solution 03/15 completed Not Available Not Available Not Available nitrofura ntoin monohydra te/macroc rystals 100 mg capsule TAKE 1 CAPSULE BY MOUTH TWICE A DAY FOR 7 DAYS 10/08 completed Not Available Not Available Not Available Vicodin 10/12 completed Not Available Not Available Not Available pravastat in 03/26 completed Not Available Not Available Not Available Dyazide 03/26 completed Not Available Not Available Not Available Prilosec 03/26 completed Not Available Not Available Not Available Os-Anamaria 500 + D3 500 mg twice a day 04/29 completed Not Available Not Available Not Available Flu 10/12 completed vaccine Not Available Not Available Not Available lidocaine (PF) 10 mg/mL (1 %) injection solution In office injectio n administ ered by the provider 02/04 completed [facility]: 0409-427 6-17 Not Available Not Available Not Available ProAir HFA 03/26 completed Not Available Not Available Not Available Symbicort 80 mcg-4.5 mcg/actua tion HFA aerosol inhaler Inhale 2 puffs twice a day by inhalati on route. active Not Available Not Available No t Available Actonel 150 mg tablet Take 1 tablet every month by oral route. 08/17 completed Not Available Not Available Not Available Senexon-S 8.6 mg-50 mg tablet TAKE 2 TABLETS BY MOUTH TWICE A DAY 04/25 completed Not Available Not Available Not Available Dulera 100 mcg-5 mcg/actua tion HFA aerosol inhaler Inhale 2 puffs twice a day by inhalati on route. 03/06 completed Not Available Not Available Not Available Os-Anamaria 500 + D3 500 mg-15 mcg (600 unit) tablet Take 1 tablet every day by oral route. 07/16 completed Not Available Not Available Not Available Eliquis 2.5 mg tablet 03/15 completed Not Available Not Available Not Available Yuvafem 10 mcg vaginal tablet Insert 1 tablet 3 times a week by vaginal route for 90 days. 10/21 completed Not Available Not Available Not Available ID NOW COVID-19 Test Kit TEST DIRECTED TODAY 04/29 completed Not Available Not Available Not Available Voltaren Arthritis Pain 1 % topical gel APPLY 2 GRAMS TO THE AFFECTED AREA(S) BY TOPICAL ROUTE 4 TIMES PER DAY 04/29 completed Not Available Not Available Not Available Vitals Date Recorded Body height Body mass index (BMI) Body weight Heart rate Body temperature Oxygen saturation Oxygen saturation in Arterial blood by Pulse oximetry Systolic blood pressure Diastolic blood pressure Provider Name and Address Organization Details Last Updated DateTime 3 167.64 cm 27.8 kg/m2 38111.8 9 g 79 /min 97 [degF] 95 % 95 % 118 mm[Hg] 64 mm[Hg] Becca Bustos [employer] 3 15:50:00 Date Recorded Body height Provider Name an d Address Organization Details Last Updated DateTime 04/25/2023 167.64 cm CATA Felix [employer] 04/25/2023 15:01:05 Date Recorded Body height Body mass index (BMI) Body weight Heart rate Body temperature Oxygen saturation Oxygen saturation in Arterial blood by Pulse oximetry Systolic blood pressure Diastolic blood pressure Provider Name and Address Organization Details Last Updated DateTime 3 167.64 cm 29.4 kg/m2 74355.8 1 g 80 /min 97 [degF] 94 % 94 % 122 mm[Hg] 78 mm[Hg] Becca [employer] [facility] 3 14:57:07 Date Recorded Body height Body mass index (BMI) Body weight Heart rate Body temperature Oxygen saturation Oxygen saturation in Arterial blood by Pulse oximetry Systolic blood pressure Diastolic blood pressure Provider Name and Address Organization Details Last Updated DateTime 4 167.64 cm 28.7 kg/m2 19883.4 4 g 69 /min 97.9 [degF] 96 % 96 % 120 mm[Hg] 86 mm[Hg] CATA Bustillo [facility] 4 15:37:08 Date Recorded Pain severity - 0-10 verbal numeric rating [Score] - Reported Provider Name and Address Organization Details Last Updated DateTime 05/09/2024 0 Courtney Flanagan RN [facility] 05/09/2024 15:49:50 Date Recorded Body height Body mass index (BMI) Body weight Heart rate Body temperature Oxygen saturation Oxygen saturation in Arterial blood by Pulse oximetry Systolic blood pressure Diastolic blood pressure Provider Name and Address Organization Details Last Updated DateTime 167.64 cm 28.9 kg/m2 16589.0 3 g 75 /min 97 [degF] 97 % 97 % 134 mm[Hg] 86 mm[Hg] CATA Bustillo [facility] 15:27:26 Social History Question Answer Notes LastModified by Organizat ion Details LastModified Time Tobacco Smoking Status Never Smoker Not Available [facility] 01/05/2023 07:26:08 Do You Have An Advance Directive? Yes MIGRATION. 31644 Information not available 01/05/2023 What Is Your Level Of Alcohol Consumption? Moderate Glass Of Wine/nit e [email or web address] Information not available 05/09/2024 Are You Blind Or Do You Have Difficulty Seeing? No MIGRATION. 44800 Information not available 01/05/2023 Are You Deaf Or Do You Have Serious Difficulty Hearing? No MIGRATION.35620 20893 Information not available 01/05/2023 What Type Of Diet Are You Following? REGULAR MIGRATION. 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 5 MIGRATION. 46435 Information not available 01/05/2023 Have There Been Any Changes To Your Family Or Social Situation? No MIGRATION. 31548 Information not available 01/05/2023 What Is The Fluoride Status Of Your Home? Unknown [email or web address] Information not available 05/09/2024 Are There Any Guns Present In Your Home? No MIGRATION.44267 49271 Information not available 01/05/2023 Do You Use Insect Repellent Routinely? Yes MIGRATION.17702 74172 Information not available 01/05/2023 Where Do You Live? [place] MIGRATION.68031 25050 Information not available 01/05/2023 Presence Of Domestic Violence No Information not available 03/15/2023 Guns Present In The Home? No Information not available 03/15/2023 Are You Able To Care For Yourself? Yes Information not available 03/15/2023 Are You Blind Or Do Yo Have Difficulty Seeing? No Information not available 03/15/2023 Are You Deaf Or Do You Have Serious Difficulty Hearing? No Information not available 03/15/2023 General Stress Level? Low Information not available 03/15/2023 Live Alone Of With Others? With Others Information not available 03/15/2023 Do You Have A Medical Power Of Gum Dipper? Yes MIGRATION.44525 97808 Information not available 01/05/2023 What Was The Date Of Your Most Recent Tobacco Screening? 05/09/2024 [email or web address] Information not available 05/09/2024 Have You Ever Been Counseled For Unhealthy Alcohol Use? No MIGRATION.33783 65422 Information not available 01/05/2023 Do You Have Any Pets? Yes MIGRATION.92450 67867 Information not available 01/05/2023 What Is Your Relationship Status? MIGRATION.63406 27423 Information not available 01/05/2023 Do You Use Your Seat Belt Or Car Seat Routinely? Yes MIGRATION.29577 97190 Information not available 01/05/2023 Do You Have Smoke And Carbon Monoxide Detectors In Your Home? Yes MIGRATION.11668 28695 Information not available 01/05/2023 Are You Passively Exposed To Smoke? No Information not available 03/15/2023 Are There Any Smokers In Your House? No MIGRATION.82161 51357 Information not available 01/05/2023 Do You Use Sunscreen Routinely? Yes MIGRATION.14365 67489 Information not available 01/05/2023 Has Tobacco Cessation Counseling Been Provided? No Information not available 03/15/2023 Have You Recently Traveled Abroad? No MIGRATION.48312 10750 Information not available 01/05/2023 Do You Have Any Dietary Restrictions? No MIGRATION.06705 47382 Information not available 01/05/2023 Do You Or Have You Ever Used Any Other Forms Of Tobacco Or Nicotine? No [address] Information not available 03/15/2023 Sex: Unknown Functional Status Question Answer Note LastModified by Organizat ion Details LastModified Time Do you have difficulty walking or climbing stairs? No MIGRATION.[id number] 026 Information not available 01/05/2023 Do you have transportation difficulties? No MIGRATION.[id number] 026 Information not available 01/05/2023 Are you able to walk? YESWOREST MIGRATION.[id number] 026 Information not available 01/05/2023 Do you have difficulty doing errands alone? No MIGRATION.5857209 026 Information not available 01/05/2023 Are you able to care for yourself? Yes MIGRATION.6530375 026 Information not available 01/05/2023 Do you have difficulty dressing or bathing? No MIGRATION.0362949 026 Information not available 01/05/2023 What is your exercise level? Moderate MIGRATION.[id number] 026 Information not available 01/05/2023 Mental Status Question Answer Note LastModified by Organizat ion Details LastModified Time Do you have difficulty concentrating, remembering or making decisions? No MIGRATION.[id number] 6 Information not available 01/05/2023 Family History Nothing Reported Notes:Mother 79 from ca ncer of the lung Father 91 with history of CABG and ASHD One sister who is living and in good health but has been diagnosed as having CA of breast. Medical History Condition Response BLINDNESS N NERVE DISEASE N RHEUMATIC FEVER N BLADDER PROBLEMS N KIDNEY STONES N MRSA N OTHER # 1 N POLIO N LUNG DISEASE/DISORDER N RADIATION / CHEMOTHERAPY N COPD N Other # 2 N BLOOD DISEASES N EAR OR HEARING PROBLEMS N MUMPS N BOWEL PROBLEMS N DEPRESSION (INCLUDING POST ) Y STROKE/TIA N ULCERS N BENIGN PROSTATIC HYPERPLASIA N MEASLES N MYOCARDIAL INFARCTION N OBESITY N GERD/NAUSEA N ANEURYSM N URINARY/BLADDER/KIDNEY PROBLEMS N CORONARY ARTERY DISEASE (CAD) N ADDICTION CONCERNS N Impotence N ENDOMETRIOSIS N USE OF BLOOD THINNERS N SKIN PROBLEMS N GASTROINTESTINAL DISORDER N PERIPHERAL VASCULAR DISEASE N MUSCLE,JOINT OR BONE PROBLEMS N GASTROINTESTINAL BLEEDING N BLOOD CLOTS N ASTHMA N CATARACTS N ERECTILE DYSFUNCTION N VARICOSITIES N GI PROBLEMS N Low Testosterone N INFERTILITY N AIDS/HIV N CHEMOTHERAPY / RADIATION N LIVER DISEASE N MALE HYPOGONADISM N HYPERTENSION N Deficiency N TOURETTE'S N ANXIETY DISORDER N BLOOD TRANSFUSION N ANEMIA/BLOOD DISORDER N CHRONIC EAR INFECTIONS N BRONCHITIS N TUBERCULOSIS N GLAUCOMA N FOOT PROBLEM N DIVERTICULITIS Y SLEEP APNEA Y CHICKENPOX N INFECTIOUS DISEASE N PROSTATE N HEART ARRHYTHMIA N INSOMNIA N HIGH CHOLESTEROL / HYPERLIPIDEMIA Y EYE PROBLEMS N HYPERTHYROIDISM N EDEMA N CHRONIC PAIN SYNDROME N HYPOTHYROIDISM N CAROTID BLOCKAGE N CONSTIPATION N BACK / NECK PROBLEMS N HAVE YOU BEEN HOSPITALIZED OR SEEN IN [facility] IN THE PAST YEAR ? N ATHEROSCLEROSIS N BREAST PROBLEMS N DIALYSIS N ECZEMA N OSTEOPOROSIS Y ARTHRITIS N NO SIGNIFICANT PAST MEDICAL HISTORY N APPENDICITIS N DIABETES, TYPE N BAD TEETH N ENT N HEARTBURN / REFLUX Y AUTISM SPECTRUM DISORDER (ASD) N HEPATITIS / LIVER DISEASE N GOUT N SLEEP DISORDER N ALZHEIMER'S DISEASE N Brain Problems N DEMENTIA N HERPES N SEIZURES/EPILEPSY N HEADACHES/MIGRAINES N VASCULAR DISEASE N PACEMAKER N Blood Disorder N DIZZINESS N HEART DISEASE/HEART PROBLEMS N KIDNEY DISEASE N MULTIPLE SCLEROSIS N CANCER: SPECIFY N CARDIAC ARRHYTHMIA N ATRIAL FIBRILLATION N Gall Stones N PULMONARY EMBOLISM N AUTOIMMUNE DISEASE N Gynecological History Statement/Question Response Date of Last Mammogram 08/28/2020 Date of Last Colonoscopy 06/12/2018 Most Recent Bone Density 08/13/2019 Obstetrics History GPAL:G 0 P 0 0 0 0 Immunizations Vaccine Type Date Status Note Provider Nam e and Address Organization Details Recorded Time influenza, unspecified formulation 3 completed CHRISTAL Jurado MA [employer] [facility] 09/26/2023 14:58:23 SARS-COV-2 (COVID-19) vaccine, UNSPECIFIED 1 completed Not Available [facility] 01/05/2023 07:35:40 SARS-COV-2 (COVID-19) vaccine, UNSPECIFIED 1 completed Not Available [facility] 01/05/2023 07:35:40 Influenza, split virus, quadrivalent, preservative 1 completed Not Available [facility] 01/05/2023 07:35:40 COVID-19, mRNA, LNP-S, PF, 100 mcg/0.5mL dose or 50 mcg/0.25mL dose 1 completed Not Available [facility] 01/05/2023 07:35:40 Pneumococcal conjugate PCV 13 1 completed Not Available [facility] 01/05/2023 07:35:40 Past Encounters Encounter ID Performer Location Encounter Start Date Encounter Closed Date Diagnosis/Indication Diagnosis SNOMED-CT Code Diagnosis ICD10 Code Diagnosis Note [id number] [facility] [address] [place] [address] [address] 03/26/2021 00:00:00 03/26/2021 11:51:14 [id number] [facility] [address] [place] [address] 10/21/2021 00:00:00 10/21/2021 12:20:58 [id number] [facility] [address] [place] [address] [address] 04/29/2022 00:00:00 04/29/2022 11:35:44 [id number] [facility] [place] [address] [facility] [address] [place] [address] 07/16/2022 00:00:00 08/01/2022 15:34:59 [id number] [facility] [place] [address] [facility] [address] [place] [address] 07/23/2022 00:00:00 08/02/2022 14:08:46 [id number] [facility] [place] [address] [facility] [address] [place] [address] 08/06/2022 00:00:00 08/06/2022 11:03:06 [id number] [facility] [address] [place] [address] [address] 09/15/2022 00:00:00 09/15/2022 15:29:03 [id number] Beto Bermudez MD [facility] [address] [facility] y , [facility] [place] [address] 03/15/2023 14:45:23 03/17/2023 12:03:27 Adult health examination 957129045 Z00.00 Screening for disorder 545281418 Z13.9 Essential hypertension 77382079 I10 Hypercholesterolemia 136 26865 E78.00 Gastro-eso phageal reflux disease with ulceration 163244268 K21.00 Osteoarthritis 165070185 M19.90 [id number] Dillon Hunter MD [facility] [place] [facility] [place] [address] [facility] [address] [place] [address] 04/25/2023 14:53:25 05/09/2023 09:33:46 Pain of left ankle joint [id number] 2151724 M25.301 [id number] Beto Bermudez MD [facility] [place] [facility] [address] [address] 09/26/2023 14:36:12 09/26/2023 15:16:47 Essential hypertension 94630717 I10 Hypercholesterolemia 136 75917 E78.00 Gastroesop hageal reflux disease 380365728 K21.9 Hyperglycemia 65034344 R 73.9 [id number] Beto Bermudez MD [facility] Internal Med [facility] [address] [address] 05/09/2024 15:24:46 05/09/2024 16:05:56 Adult health examination 800269209 Z00.00 Screening for disorder 351493271 Z13.9 Essential hypertension 40860717 I10 Hypercholesterolemia 136 75853 E78.00 Gastroesop hageal reflux disease 662092169 K21.9 Osteoarthr itis of knee 061583926 M17.9 Sleep apnea 57797971 G47 .30 [id number] Beto Bermudez MD [facility] [place] [facility] [address] [address] 10/08/2024 15:19:49 10/08/2024 15:57:49 Obstructive sleep apnea syndrome 40470223 G47.33 Hypercholesterolemia 136 55391 E78.00 Gastroesop hageal reflux disease 017317117 K21.9 Essential hypertension 35071795 I10 Overactive urinary bladder 411625669 N32.81 Vitamin D deficiency 347 88917 E55.9 Osteoarthritis 131491230 M19.90 Health Concerns Section Related Observation LastModified by Organization Detai ls LastModified Time None Recorded Concern Status LastModified by Organization Details LastModified Time None Recorded Advance Directives Directive Y: Payers Encounter Date Sequence Insurance Name Policy Number Policy Kathleen Covered Member ID Kathleen Member ID Guarantor Name 03/15/2023 1 [place] Jewell Ruy Napier [id number] Jewell S Napier 03/15/2023 2 [employer] (MEDICARE SUPPLEMENT) Jewell M Napier [id number] Jewell S Napier 04/25/2023 1 [place] Jewell M Napier [id number] Jewell S Napier 04/25/2023 2 [employer] (MEDICARE SUPPLEMENT) Jewell M Napier [id number] Jewell S Napier 09/26/2023 1 [place] Jewell M Napier [id number] Jewell S Napier 09/26/2023 2 [employer] (MEDICARE SUPPLEMENT) Jewell M Napier [id number] Jewell S Napier 05/09/2024 1 [place] Jewell M Napier [id number] Jewell S Napier 05/09/2024 2 [employer] (MEDICARE SUPPLEMENT) Jewell M Napier [id number] Jewell S Napier 10/08/2024 1 [place] Jewell M Napier [id number] Jewell S Napier 10/08/2024 2 [employer] (MEDICARE SUPPLEMENT) Jewell Ruy Napier [id number] Jewell S Napier Notes Date Note Type Note Provider Name and Address Organization Details Recorded Time 03/15/2023 text/html Patient Name: Nunu n LawsonDate Of Service: Tuesday ( 03.15.2023 ): 1955 Age: 68 There has been approximately a 2 lb weight gain since 09/15/2022. This represents approximately a 1.2% change in weight. Weight change attributable to lifestyle changes. Vital Signs:Blood Pressure: Sitting Rt. Arm 118/64Pulse: Sitting 79 /min and RegularRespirations: 12Height 66 in or 1.7 mWeight 172 lb or 78.0 kgBMI 27.8Temperature: 97 F or 36.1 CPulse Oximetry: 95 % at rest on no oxygen Chief Complaint: Addressed in HPI Problems or conditions discussed in the HPI were the only ones reviewed during the encounter.Only social and family history addressed in the HPI were reviewed during this encounter. A significant, separate E/M service was performed to evaluate the current and new problems. Attendant(s): None Constitutional and Systemic Symptoms: none Medication Reconciliation: from medication list. History of Present Illness Reviewed the findings of the preventative health visit. Addressed all areas with the patient, patient's family or caregivers. Preventative examinations and testing immunizations - vaccinations, colonic neoplasm screening, mammograms and DEXA Scan all reviewed and ordered where patient was amenable to the recommendations. Cognitive function was normal. Depression addressed and where necessary medications were adjusted or instituted. End of life and living will briefly discussed with patient and where these can be filled out and legally executed. Other blood and imaging studies were ordered if considered necessary. Other recommendations may be found in the encounter note. #1. Essential Hypertension: Stage: Stage I Interval Neurological Complaints no headaches, dizziness, weakness, visual changes, ataxia and aphasia. No shortness of breath, orthopnea or cardiovascular symptoms. No other symptoms related to end organ damage. Pressure has been under excellent control. Currently normal. No other end organ symptoms or findings. Therapy reviewed regarding management of hypertension and includes salt restriction and Dyazide. #2. Type II Hypercholesterolaemia: Currently taking medication and tolerating well. No interval complaints of any muscle pain or arthralgia. No significant liver changes with medications. Last lipid panel: fair control. Therapy reviewed regarding treatment of cholesterol management and include diet and Pravachol. #3. Hx of esophageal reflux currently stable. Hx of Complications: none The severity, duration and intensity of symptoms have improved. Frequency: most meals Treatment consists medications taken on intermittent basis. Current therapy includes Prilosec. There has been no nausea, eructation, vomiting, hematemesis, dysphagia, velopharyngeal insufficiency and odynophagia. No change in he frequency or intensity of symptoms. Has had no melena. Has had no hematemesis. Discuss the possibility of trying to reduce the frequency of the use of any PPI inhibitors or H2 antagonist to see if symptoms can be controlled with last intensive therapy #4. Hx of DJD stable. No interval complaints of any additional joint pain, swelling or redness. Joints most involved include knees. Medications: none The DJD does interfere with ADL and ambulation.Medication List Reviewed and Reconciled 03/15/2023Xanax 0.5 MG (TABLET - ORAL) One Daily Prn For AnxietyOs-anamaria D 500 MG One BidFlonase 0.05 MG/SPRAY (SPRAY, METERED - NASAL) Two Puffs Each Nostril Once DailyCpap 11 CM NightlyLexapro 20 MG (TABLET - ORAL) Once DailyPravachol 40 MG (TABLET - ORAL) One Daily Hs For CholesterolDyazide 25 MG-37.5 MG (CAPSULE - ORAL) Once DailyPrilosec 20 MG (CAPSULE, DELAYED REL PELLETS - ORAL) One DailyADRs List Reviewed 03/15/2023Lipitor MyalgiaFlu Shots Myalgia And FeverVaccination and Mkuibpeimtqa4593-63 Pneumovax 678126-01 Prevnar 935405-61 Covid Bsnmcid7501-54 Nkedbbcls3946-35 Tetanus BoosterSurgical HistorySeptoplasty, Bladder Suspension, Right Carpal Tunnel, LaporoscopyPreventative Testing Confirmed by Our Tvihtrq3207/16/2022 ALBUMIN 4.2 G/DL11/04/2021 MAMMOGRAM DEXA SCAN06/12/2018 COLONOSCOPY (5 YEARS) HAICSocial HistoryDoes not smokeDrinks sociallyWorks as an RNFamily HistoryMother 79 from cancer of the lungFather 91 with history of CABG and ASHDOne sister who is living and in good health but has been diagnosed as having CA of breast. Beto Bermudez MD [address] [facility] [address], [place], [address], [place] [facility] [employer] 03/15/2023 17:18:04 04/25/2023 text/html patient returns. She is here for evaluation of pronounced posterolateral left ankle swelling that she had recently. She wanted to have x-rays of her left ankle. She underwent open reduction internal fixation of a comminuted Knight B left lateral malleolus fracture in 2019. This involved the lateral side plate and locking screws as well as mini fragment screw anterior to posterior where she had a displaced Xenia tubercle fragment. She thinks that the swelling might have been related to peroneal tendinopathy due to Ciprofloxacin use. 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 Cultures were negative on 2 attempts. She was referred to at [facility] who is a renown expert at diagnosis in the and management of periprosthetic joint infections and he did run a Synovasure test which patient Jere's showed some positive aspect suggesting bacterial particles. Cultures remain negative. She underwent explantation of the knee and a cement spacer was placed. She believes that the intraoperative cultures were all negative. She was treated by Infectious Disease with vancomycin and ceftriaxone empirically via a PICC line and she developed to 104 fever elevated liver enzymes decreased white count and rash and skin peeling consistent with a drug reaction with eosinophilia and systemic symptoms and on skin testing she had a severely positive reaction to vancomycin on the skin patch test and this was thought to be the culprit to which she was allergic. All allergy testing of ceftriaxone was negative. She was switched to daptomycin and ciprofloxacin. She underwent reimplantation of her knee replacement on January 05 and has done very well and is very happy with the result now 3 and half months out. After reimplantation she was advised to take ciprofloxacin and doxycycline. While taking this she developed severe swelling over the peroneal tendon sheath posterior to the lateral malleolus which had been repaired previously with a lateral sideplate and interfragmentary screws and she wondered whether whether 1 of the screws might have backed out causing irritation to tendon. Her strong suspicion was that it was related to the ciprofloxacin and the tendinopathy that sent can sometimes complicate ciprofloxacin usage. She also developed a very painful nodule over the extensor tendon to the right index finger that clinically moves back and forth with flexion-extension of the tendon. It was extremely painful while she was taking the ciprofloxacin and now it has improved. She stop the ciprofloxacin at 10 weeks after the reimplantation. Dillon Hunter MD [address] [place] [address], [facility] [address], [place], [address], [place] [facility] [employer] 05/07/2023 18:57:46 09/26/2023 text/html Patient Name: An n LawsonDate Of Service: Tuesday ( 09.26.2023 ): 1955 Age: 68 There has been approximately a 10 lb weight gain since 03/15/2023. This represents approximately a 5.8% change in weight. Weight change attributable to lifestyle changes. Vital Signs:Blood Pressure: Sitting Rt. Arm 122/78Pulse: Sitting 80 /min and RegularRespiratory Rate: 12Height 66 in or 1.7 mWeight 182 lb or 82.6 kgBMI 29.4Temperature: 97 F or 36.1 CPulse Oximetry: 94 % at rest on no oxygen Chief Complaint: Addressed in HPI Problems or conditions discussed in the HPI were the only ones reviewed during the encounter.Only social and family history addressed in the HPI were reviewed during this encounter. Attendant(s): NoneConstitutional and Systemic Symptoms:none Medication Reconciliation: from medication list. History of Present Illness #1. Essential Hypertension: Stage: Stage I Interval Neurological Complaints no headaches, dizziness, weakness, visual changes, ataxia, aphasia and apraxia. No shortness of breath, orthopnea or cardiovascular symptoms. No other symptoms related to end organ damage. Pressure has been under excellent control. Currently normal. No other end organ symptoms or findings. Therapy reviewed regarding management of hypertension and includes salt restriction and Dyazide. #2. Type II Hypercholesterolaemia: Currently taking medication and tolerating well. No interval complaints of any muscle pain or arthralgia. No significant liver changes with medications. Last lipid panel: fair control. Therapy reviewed regarding treatment of cholesterol management and include diet and Pravachol. #3. Hx of esophageal reflux currently stable. Hx of Complications: none The severity, duration and intensity of symptoms have improved. Frequency: most meals Treatment consists medications taken on a regular basis. Current therapy includes Prilosec. There has been no nausea, eructation, vomiting, hematemesis, dysphagia, velopharyngeal insufficiency and odynophagia. No change in he frequency or intensity of symptoms. Has had no melena. Has had no hematemesis. Discuss the possibility of trying to reduce the frequency of the use of any PPI inhibitors or H2 antagonist to see if symptoms can be controlled with last intensive therapyMedication List Reviewed and Reconciled 09/26/2023Mobic 7.5 MG Once DailyXanax 0.5 MG (TABLET - ORAL) One Daily Prn For AnxietyOs-anamaria D 500 MG One BidFlonase 0.05 MG/SPRAY (SPRAY, METERED - NASAL) Two Puffs Each Nostril Once DailyCpap 11 CM NightlyLexapro 20 MG (TABLET - ORAL) Once DailyPravachol 40 MG (TABLET - ORAL) One Daily Hs For CholesterolDyazide 25 MG-37.5 MG (CAPSULE - ORAL) Once DailyPrilosec 20 MG (CAPSULE, DELAYED REL PELLETS - ORAL) One DailyADRs List Reviewed 09/26/2023Lipitor MyalgiaFlu Shots Myalgia And FeverVaccination and Sglrewlzanbq0988-36 Fpovrhlxi9247-05 Prevnar 13 Vq3995-19 Covid ModernaSurgical HistorySeptoplasty, Bladder Suspension, Right Carpal Tunnel, LaporoscopyPreventative Testing Confirmed by Our Aprverw0604/11/2023 MAMMOGRAM / ALBUMIN 4.4 G/DL N1 DEXA SCAN06/12/2018 COLONOSCOPY (5 YEARS) / HAICSocial HistoryDoes not smokeDrinks sociallyWorks as an RNFamily HistoryMother 79 from cancer of the lungFather 91 with history of CABG and ASHDOne sister who is living and in good health but has been diagnosed as having CA of breast. Beto Bermudez MD [address] [place] [address], [facility] [address], [place], [address], [place] [employer] 09/26/2023 16:33:03 05/09/2024 text/html Patient Name: Nunu richter LawsonDate Of Service: Tuesday ( 05.09.2024 ): 1955 Age: 69 There has been approximately a 4 lb weight loss since 09/26/2023. This represents approximately a 2.2% change in weight. Weight change attributable to lifestyle changes. Vital Signs:Blood Pressure: Sitting Rt. Arm 120/86Pulse: Sitting 69 /min and RegularRespiratory Rate: 12Height 66 in or 1.7 mWeight 178 lb or 80.7 kgBMI 28.7Temperature: 97.9 F or 36.6 CPulse Oximetry: 96 % at rest on no oxygen Chief Complaint: Addressed in HPI Problems or conditions discussed in the HPI were the only ones reviewed during the encounter.Only social and family history addressed in the HPI were reviewed during this encounter. A significant, separate E/M service was performed to evaluate the current and new problems. Attendant(s): NoneConstitutional and Systemic Symptoms:none Medication Reconciliation: from medication list. History of Present Illness Reviewed the findings of the preventative health visit. Addressed all areas with the patient, patient's family or caregivers. Preventative examinations and testing immunizations - vaccinations, colonic neoplasm screening, mammograms and DEXA Scan refusing all reviewed and ordered where patient was amenable to the recommendations. Cognitive function was normal. Depression addressed and where necessary medications were adjusted or instituted. End of life and living will briefly discussed with patient and where these can be filled out and legally executed. Other blood and imaging studies were ordered if considered necessary. Other recommendations may be found in the encounter note. #1. Essential Hypertension: Stage: Stage I Interval Neurological Complaints no headaches, dizziness, weakness, visual changes, ataxia, aphasia and apraxia. No shortness of breath, orthopnea or cardiovascular symptoms. No other symptoms related to end organ damage. Pressure has been under excellent control. Currently normal. No other end organ symptoms or findings. Therapy reviewed regarding management of hypertension and includes salt restriction and Dyazide. #2. Type II Hypercholesterolaemia: Currently taking medication and tolerating well. No interval complaints of any muscle pain or arthralgia. No significant liver changes with medications. Last lipid panel: fair control. Therapy reviewed regarding treatment of cholesterol management and include diet and Pravachol. #3. Hx of esophageal reflux currently stable. Hx of Complications: none The severity, duration and intensity of symptoms have improved. Frequency: most meals Treatment consists medications taken on a regular basis. Current therapy includes Prilosec. There has been no nausea, eructation, vomiting, hematemesis, dysphagia, velopharyngeal insufficiency and odynophagia. No change in he frequency or intensity of symptoms. Has had no melena. Has had no . Discussed use of H2 antagonists and the possibility of trying to reduce the frequency of the use of any PPI inhibitors and try H2 antagonists to see if symptoms can be controlled with lease intensive therapy since a number of complications are associated with chronic prolonged use of PPI inhibitors. #4. Sleep Apnea: Type: MARIAM Current doing well. No significant daytime somnolence or problems performing daily chores. Using CPAP on nightly basis . Overall has shown considerable improvement.Jackson Sleepiness ScaleSitting and ReadinWatching TV: 1Sitting Inactive in a Public Place: 1Passenger in a Car: 0Lying Down in Afternoon: 1Sitting and Talking to someone: 0Sitting quietly after lunch: 1In a car while stopped or drivinScore Interpretation: 0-7 No evidence of abnormally sleepy #5. Hx of DJD stable. No interval complaints of any additional joint pain, swelling or redness. Joints most involved include knees. Medications: NSAIDS The DJD does not interfere with ADL and ambulation. Active Medication ListMobic 7.5 MG Once DailyXanax 0.5 MG (TABLET - ORAL) One Daily Prn For AnxietyOs-anamaria D 500 MG One BidFlonase 0.05 MG/SPRAY (SPRAY, METERED - NASAL) Two Puffs Each Nostril Once DailyCpap 11 CM NightlyLexapro 20 MG (TABLET - ORAL) Once DailyPravachol 40 MG (TABLET - ORAL) One Daily Hs For CholesterolDyazide 25 MG-37.5 MG (CAPSULE - ORAL) Once DailyPrilosec 20 MG (CAPSULE, DELAYED REL PELLETS - ORAL) One Daily Adverse Drug Reactions ReviewedLipitor MyalgiaFlu Shots Myalgia And Fever Vaccination and Cdrpxgkmnxbl4060-56 Sfjtziqyi1381-17 Prevnar 13 Lm1479-26 Covid Moderna Surgical Ebrsnpd1865-30 Higdfntdbju1974-12 Bladder Iuzrhvazsg6250-20 Right Carpal Rggkdh6810-93 Laporoscopy Preventative Nnumyrq3212/26/2023 COLONOSCOPY ( 5 YEARS ) 9012/12/2023 KYNUGSRMCISSB94/19/2024 ALBUMIN 4.3 G/DL N011/25/2023 HAIC 5.7 % OF TOTAL HGB H004/11/2023 MAMMOGRAM 41 DEXA SCAN Social HistoryDoes not smokeDrinks 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 Beto Bermudez MD [address] [place] [address], [facility] [address], [place], [address], [place] [facility] 05/09/2024 16:04:06 10/08/2024 text/html Patient Name: Nunu Gibbons Of Service: Tuesday ( 10.08.2024 ): 1955 Age: 69 Vital Signs:Blood Pressure: Sitting Rt. Arm 134/86Pulse: Sitting 75 /min and RegularRespiratory Rate: 16Height 66 in or 1.7 mWeight 179 lb or 81.2 kgBMI 28.9Temperature: 97 F or 36.1 CPulse Oximetry: 97 % at rest on no oxygen Chief Complaint: Addressed in HPI Problems or conditions discussed in the HPI were the only ones reviewed during the encounter.Only social and family history addressed in the HPI were reviewed during this encounter. Attendant(s): NoneConstitutional and Systemic Symptoms:none Medication Reconciliation: from medication list. History of Present Illness #1. Sleep Apnea: Type: MARIAM Current doing well. No significant daytime somnolence or problems performing daily chores. Using CPAP on nightly basis in his need of new equipment due to the aging of her current equipment. . Overall has shown considerable improvement.Jackson Sleepiness ScaleSitting and ReadinWatching TV: 0Sitting Inactive in a Public Place: 1Passenger in a Car: 2Lying Down in Afternoon: 2Sitting and Talking to someone: 1Sitting quietly after lunch: 2In a car while stopped or drivinScore Interpretation: 8-9 Average amount of daytime sleepiness #2. Essential Hypertension: Stage: Stage I Interval Neurological Complaints no headaches, dizziness, weakness, visual changes, ataxia, aphasia and apraxia. No shortness of breath, orthopnea or cardiovascular symptoms. No other symptoms related to end organ damage. Pressure has been under excellent control. Currently normal. No other end organ symptoms or findings. Therapy reviewed regarding management of hypertension and includes salt restriction and Dyazide. #3. Type II Hypercholesterolaemia: Currently taking medication and tolerating well. No interval complaints of any muscle pain or arthralgia. No significant liver changes with medications. Last lipid panel: fair control. Therapy reviewed regarding treatment of cholesterol management and include diet and Pravachol. #4. Hx of esophageal reflux currently stable. Hx of Complications: none The severity, duration and intensity of symptoms have improved. Frequency: most meals Treatment consists medications taken on a regular basis. Current therapy includes Prilosec. There has been no nausea, eructation, vomiting, hematemesis, dysphagia, velopharyngeal insufficiency and odynophagia. No change in he frequency or intensity of symptoms. Has had no melena. Has had no . Discussed use of H2 antagonists and the possibility of trying to reduce the frequency of the use of any PPI inhibitors and try H2 antagonists to see if symptoms can be controlled with lease intensive therapy since a number of complications are associated with chronic prolonged use of PPI inhibitors. #5. Overactive Bladder Syndrome: Hx of OAB. Currently taking Oxybutynin. Has not improved Active Medication ListMobic 7.5 MG Once DailyXanax 0.5 MG (TABLET - ORAL) One Daily Prn For AnxietyOs-anamaria D 500 MG One BidFlonase 0.05 MG/SPRAY (SPRAY, METERED - NASAL) Two Puffs Each Nostril Once DailyCpap 11 CM NightlyLexapro 20 MG (TABLET - ORAL) Once DailyPravachol 40 MG (TABLET - ORAL) One Daily Hs For CholesterolDyazide 25 MG-37.5 MG (CAPSULE - ORAL) Once DailyOxybutynin 10 MG TABLET, EXTENDED RELEASE One DailyPrilosec 20 MG (CAPSULE, DELAYED REL PELLETS - ORAL) One Daily Adverse Drug Reactions ReviewedLipitor MyalgiaFlu Shots Myalgia And Fever Vaccination and Immunization(X) 2022- INFLUENZA(X) 2020- COVID MODERNA( ) 2020- PREVNAR 13 Surgical Bugumrg5738-89 Yksfqhctcmk5175-57 Bladder Lffhsotnff1419-11 Right Carpal Phwetv0698-96 Laporoscopy Preventative Testing( ) 06/27/2024 Mammogram 06/27/2026( ) 12/26/2023 Colonoscopy ( 5 Years ) 12/26/2028( ) 12/12/2023 Ophthalmology( ) 11/25/2023 Albumin 4.3 G/DL N( ) 11/25/2023 HAIC 5.7 % OF TOTAL HGB H(X) 11/04/2021 DEXA Scan 11/04/2023 Social HistoryDoes not smokeDrinks 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 TEST RESULT RANGE UNITSCBC (INCLUDES DIFF/PLT) Date: 11/25/2023WHITE BLOOD CELL COUNT 5.2 3.8-10.8 THOUSAND/ULHEMOGLOBIN 13.7 11.7-15.5 G/DLHEMATOCRIT 41.4 35.0-45.0 %PLATELET COUNT 231 140-400 THOUSAND/ULCOMPREHENSIV E METABOLIC PANEL Date: 11/25/2023SODIUM 142 135-146 MMOL/LPOTASSIUM 4.0 3.5-5.3 MMOL/LGLUCOSE 116 65-99 MG/DLUREA NITROGEN (BUN) 19 7-25 MG/DLCREATININE 0.73 0.50-1.05 MG/DLEGFR 89 > OR = 60 ML/MIN/1.98C7HTTTLDDCS, TOTAL 0.5 0.2-1.2 MG/DLALKALINE PHOSPHATASE 74 37-153 U/LAST 18 10-35 U/LALT 14 6-29 U/LHEMOGLOBIN A1C Date: 11/25/2023HEMOGLOBIN A1C 5.7 <5.7 % OF TOTAL HGBLIPID PANEL, STANDARD Date: 11/25/2023HOLESTEROL, TOTAL 196 <200 MG/DLHDL CHOLESTEROL 79 > OR = 50 MG/DLTRIGLYCERIDES 68 <150 MG/DLLDL-CHOLESTEROL 102 MG/DL (CALC)T4, FREE Date: 11/25/2023T4, FREE 1.1 0.8-1.8 NG/DLTSH Date: 11/25/2023TSH 1.58 0.40-4.50 MIU/L Beto Bermudez MD [address] [facility], [facility] [address], [place], [address], [place] [facility] [employer] 10/08/2024 15:51:56 OBGyn Episode No OBEpisode recorded.
--- OUTSIDE RECORDS SUMMARY | 2025-01-14 01:09 | XMS_ITS | Clinical Summary ---
Author Organization [facility] Address [address] [place] [address] Care Team Providers Care Cardiac Monitor Name Role Phone Leno Bermudez MD Unavailable [phone] Leno Bermudez MD Primary Care Provider Allergies [...] 09/28/2022 MARIAM on CPAP 09/17/2022 Bacterial arthritis 09/15/2022 Chronic sinusitis 09/14/2022 Closed fracture of lateral malleolus 09/14/2022 Contusion of chest 09/14/2022 Depressive disorder 09/14/2022 Fracture of lower leg 09/14/2022 Illness 09/14/2022 Osteoarthritis of knee 09/14/2022 Osteopenia 09/14/2022 Polyneuropathy 09/14/2022 Restless legs 09/14/2022 Sciatica 09/14/2022 Vertigo 09/14/2022 Infection of prosthetic left knee joint 08/24/20 22 Overview (08/24/2022): Added automatically from request for surgery [id number] Assessment & Plan (11/12/2022 1:06 PM PATENT AGENT): - Continues on IV Daptomycin 600 mg [...] concerns Assessment & Plan (10/19/2022 3:18 PM PATENT AGENT): Summary: L-TKA PJI, culture-negative s/p 1st stage of planned 2-stage procedure. 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 We discussed options to complete [...] weeks. Assessment & Plan (09/30/2022 11:43 AM PATENT AGENT): The patient is a 67 y.o. female [...] 972 - 1978 Passive Smoke Exposure: Never Tobacco [...] on file Legal Sex Female 8:26 AM PATENT AGENT Gender Identity Not on file Sexual Orientation [...] 11/02/2030 11/02/2020 Medical Devices Implanted Type Area Buckle Coverer Device Identifier Shelf Expiration Date Model / Serial / Lot Plate Plate Left: Ankle Description:Plate & screws [employer] Simplex P Full Dose Radiopaque Preblend Cement Bone Tobramycin 6197-9-010 - [id number] Implanted:Qty: 1 on 01/05/2023 by Kevon Forman MD at [facility] Left: Knee [employer] 05/06/2024 61979- 0 / / [id number] [employer] Simplex P Full Dose Radiopaque Preblend Cement Bone Tobramycin 6197-9-010 - [id number] Implanted:Qty: 1 on 01/05/2023 by Kevon Forman MD at [facility] Left: Knee [employer] 06/06/2024 6197-07-08 0 / / [id number] [employer] Simplex P Full Dose Radiopaque Preblend Cement Bone Tobramycin 6197-9-010 - [id number] Implanted:Qty: 1 on 01/05/2023 by Kevon Forman MD at [facility] Left: Knee [employer] 05/06/20249- 0 / / [id number] [employer] Simplex P Full Dose Radiopaque Preblend Cement Bone Tobramycin 6197-9-010 - [id number] Implanted:Qty: 1 on 01/05/2023 by Kevon Forman MD at [facility] Left: Knee [employer] 06/06/20249- 0 / / [id number] [employer] Triathlon Total Stabilizer Knee Left 4 Component Femoral Cocr 5512-F-401 - [id number] Implanted:Qty: 1 on 01/05/2023 by Kevon Forman MD at [facility] Left: Knee [employer] [id number] 07/28/2027 5512-F-40 1 / / [id number] [employer] Triathlon Total Stabilize Knee Femur 25mm Extension Stem 5571-S-025 - [id number] Implanted:Qty: 1 on 01/05/2023 by Kevon Forman MD at [facility] Left: Knee [employer] [id number] 10/14/2027 5571-S-02 5 / / [id number] [employer] Triathlon 12mm 50mm Cement End Cap Knee Stem Femoral Cocr 5560-S-112 - [id number] Implanted:Qty: 1 on 01/05/2023 by Kevon Forman MD at [facility] Left: Knee [employer] [id number] 11/16/2027 5560-S-11 2 / / [id number] [employer] Triathlon 5mm Total Stabilize Knee Left 4 Augment Femoral 5540-A-401 - [id number] Implanted:Qty: 1 on 01/05/2023 by Kevon Forman MD at [facility] Left: Knee [employer] [id number] 11/08/2027 5540-A-40 1 / / [id number] [employer] Triathlon 5mm Total Stabilize Knee Left 4 Augment Femoral 5540-A-401 - [id number] Implanted:Qty: 1 on 01/05/2023 by Kevon Forman MD at [facility] Left: Knee [employer] [id number] 11/08/2027 5540-A-40 1 / / [id number] [employer] Triathlon 5mm Total Stabilize Knee Posterior 4 Augment Femoral 5543-A-400 - [id number] Implanted:Qty: 1 on 01/05/2023 by Kevon Forman MD at [facility] Left: Knee [employer] [id number] 10/14/2027 5543-A-40 0 / / [id number] [employer] Triathlon 10mm Total Stabilize Knee Posterior 4 Augment Femoral 5544-A-400 - [id number] Implanted:Qty: 1 on 01/05/2023 by Kevon Forman MD at [facility] Left: Knee [employer] [id number] 03/03/2026 5544-A-40 0 / / [id number] [employer] Triathlon Total Stabilize Knee Femur 25mm Extension Stem 5571-S-025 - [id number] Implanted:Qty: 1 on 01/05/2023 by Kevon Forman MD at [facility] Left: Knee [employer] [id number] 10/14/2027 5571-S-02 5 / / [id number] [employer] Triathlon Knee 3 Clay Baseplate Tibial Cocr 5521-B-300 - [id number] Implanted:Qty: 1 on 01/05/2023 by Kevon Forman MD at [facility] Left: Knee [employer] [id number] 09/08/2025 5521-B-30 0 / / [id number] [employer] Triathlon 12mm 50mm Cement End Cap Knee Stem Femoral Cocr 5560-S-112 - [id number] Implanted:Qty: 1 on 01/05/2023 by Kevon Forman MD at [facility] Left: Knee [employer] [id number] 04/19/2027 5560-S-11 2 / / [id number] [employer] Triathlon 5mm Total Stabilize Right Medial Left Lateral 3 Augment 5545-A-302 - [id number] Implanted:Qty: 1 on 01/05/2023 by Kevon Forman MD at [facility] Left: Knee [employer] [id number] 03/10/2027 5545-A-30 2 / / [id number] [employer] Triathlon 5mm Total Stabilize Left Medial Right Lateral 3 Augment 5545-A-301 - [id number] Implanted:Qty: 1 on 01/05/2023 by Kevon Forman MD at [facility] Left: Knee [employer] [id number] 01/15/2025 5545-A-30 1 / / [id number] [employer] Triathlon 19mm Total Stabilizer Plus Knee 3 Insert Tibial Sterile 0578-Y-296-E - [id number] Implanted:Qty: 1 on 01/05/2023 by Kevon Forman MD at [facility] Left: Knee [employer] [id number] 11/26/2026 5537-G-31 9-E / / [id number] Explanted Type Area Buckle Coverer Device Identifier Shelf Expiration Date Model / Serial / Lot [employer] Simplex P Full Dose Radiopaque Preblend Cement Bone Tobramycin 6197-9-001 - [id number] Implanted:Qty: 3 on 09/27/2022 by Kevon Forman MD at [facility] Explanted:Qty: 3 on 01/05/2023 by Kevon Forman MD at [facility] Left: Knee [employer] 11/06/2023 6197-9-00 1 / / [id number] [employer] Simplex P Full Dose Radiopaque Preblend Cement Bone Tobramycin 6197-9-001 - [id number] Implanted:Qty: 3 on 09/27/2022 by Kevon Forman MD at [facility] Explanted:Qty: 3 on 01/05/2023 by Kevon Forman MD at [facility] Left: Knee [employer] 09/06/2023 6197-9-00 1 / / [id number] [employer] Triathlon 16mm Total Stabilizer Plus Knee 3 Insert Tibial Sterile 7030-Z-948-E - [id number] Implanted:Qty: 1 on 09/27/2022 by Kevon Forman MD at [facility] Explanted:Qty: 1 on 01/05/2023 by Kevon Forman MD at [facility] Left: Knee [employer] [id number] 12/31/2026 5537-G-31 6-E / / [id number] [employer] Triathlon 10mm Total Stabilize Knee Posterior 4 Augment Femoral 5544-A-400 - [id number] Implanted:Qty: 1 on 09/27/2022 by Kevon Forman MD at [facility] Explanted:Qty: 1 on 01/05/2023 by Kevon Forman MD at [facility] Left: Knee [employer] [id number] 01/17/2027 5544-A-40 0 / / [id number] [employer] Triathlon 5mm Total Stabilize Knee Posterior 4 Augment Femoral 5543-A-400 - [id number] Implanted:Qty: 1 on 09/27/2022 by Kevon Forman MD at [facility] Explanted:Qty: 1 on 01/05/2023 by Kevon Forman MD at [facility] Left: Knee [employer] [id number] 05/25/2027 5543-A-40 0 / / [id number] [employer] Triathlon 5mm Total Stabilize Knee Left 4 Augment Femoral 5540-A-401 - [id number] Implanted:Qty: 1 on 09/27/2022 by Kevon Forman MD at [facility] Explanted:Qty: 1 on 01/05/2023 by Kevon Forman MD at [facility] Left: Knee [employer] [id number] 04/01/2024 5540-A-40 1 / / [id number] [employer] Triathlon 5mm Total Stabilize Knee Left 4 Augment Femoral 5540-A-401 - [id number] Implanted:Qty: 1 on 09/27/2022 by Kevon Forman MD at [facility] Explanted:Qty: 1 on 01/05/2023 by Kevon Forman MD at [facility] Left: Knee [employer] [id number] 05/21/2024 5540-A-40 1 / / [id number] [employer] Triathlon Cemented Posterior Stabilize Knee Left 4 Component 5515-F-401 - [id number] Implanted:Qty: 1 on 09/27/2022 by Kevon Forman MD at [facility] Explanted:Qty: 1 on 01/05/2023 by Kevon Forman MD at [facility] Left: Knee [employer] [id number] 08/10/2026 5515-F-40 1 / / [id number] Insurance MEDICARE [facility] MEDICARE [facility] MEDICARE [facility] MEDICARE [facility] MEDICARE Advance Directives For more information, please contact: [phone] Documents on File Type Date Recorded Patient Roller Inspector And Mender Expl anation ADVANCE DIRECTIVE 09/27/2022 11:[address] [facility] er of Maintenance Electrician-Medical * Full Code (Latest Code Status on File) Date Activated Date Inactivated Comments 01/05/2023 6:42 PM 01/06/2023 9:28 PM * Full Code Date Activated Date Inactivated Comments 09/27/2022 4:31 PM 10/02/2022 10:37 PM Care Teams Cardiac Monitor Relationship Specialty Start Date End Date Leno Bermudez MD [address] [facility] [address] [place] [address] PCP - General Internal Medicine 02/07/23 Leno Bermudez MD [address] [facility] [address] Internal Medicine 10/20/22
--- OUTSIDE RECORDS SUMMARY | 2025-01-14 01:09 | XMS_ITS | Referral Summary ---
Author Organization [facility] Address [address] [place] [address] Care Team Providers Care Sole Dyer Name Role Phone Leno Bermudez MD Unavailable [phone] Leno Bermudez MD Primary Care Provider Allergies [...] (08/24/2022): Added automatically from request for surgery [id number] Assessment & Plan (11/12/2022 1:06 PM DIETARY SERVICE AIDE): - Continues on IV Daptomycin 600 mg [...] concerns Assessment & Plan (10/19/2022 3:18 PM DIETARY SERVICE AIDE): Summary: L-TKA PJI, culture-negative s/p 1st stage of planned 2-stage procedure. 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 We discussed options to [...] weeks. Assessment & Plan (09/30/2022 11:43 AM DIETARY SERVICE AIDE): The patient is a 67 y.o. female [...] on file Legal Sex Female 8:26 AM DIETARY SERVICE AIDE Gender Identity Not on file Sexual Orientation [...] on file Medical Devices Implanted Type Area Track Repair Worker Device Identifier Shelf Expiration Date Model / Serial / Lot Plate Plate Left: Ankle Description:Plate & screws [employer] Simplex P Full Dose Radiopaque Preblend Cement Bone Tobramycin 6197-9-010 - [id number] Implanted:Qty: 1 on 01/05/2023 by Kevon Forman MD at [facility] Left: Knee [employer] 05/06/2024979- 0 / / [id number] [employer] Simplex P Full Dose Radiopaque Preblend Cement Bone Tobramycin 6197-9-010 - [id number] Implanted:Qty: 1 on 01/05/2023 by Kevon Forman MD at [facility] Left: Knee [employer] 06/06/2024 6197-9- 0 / / [id number] [employer] Simplex P Full Dose Radiopaque Preblend Cement Bone Tobramycin 6197-9-010 - [id number] Implanted:Qty: 1 on 01/05/2023 by Kevon Forman MD at [facility] Left: Knee [employer] 05/06/2024979- 0 / / [id number] [employer] Simplex P Full Dose Radiopaque Preblend Cement Bone Tobramycin 6197-9-010 - [id number] Implanted:Qty: 1 on 01/05/2023 by Kevon Forman MD at [facility] Left: Knee [employer] 06/06/2024 6197-9-01 0 / / [id number] [employer] Triathlon Total Stabilizer Knee Left 4 Component Femoral Cocr 5512-F-401 - [id number] Implanted:Qty: 1 on 01/05/2023 by Kevon Forman MD at [facility] Left: Knee [employer] [id number] 07/28/2027 5512-F-40 1 / / [id number] [employer] Triathlon Total Stabilize Knee Femur 25mm Extension Stem 5571-S-025 - [id number] Implanted:Qty: 1 on 01/05/2023 by Kevon Forman MD at [facility] Left: Knee [employer] [id number] 10/14/2027 5571-S-02 5 / / [id number] [employer] Triathlon 12mm 50mm Cement End Cap Knee Stem Femoral Cocr 5560-S-112 - [id number] Implanted:Qty: 1 on 01/05/2023 by Kevon Forman MD at [facility] Left: Knee [employer] [id number] 11/16/2027 5560-S-11 2 / / [id number] [employer] Triathlon 5mm Total Stabilize Knee Left 4 Augment Femoral 5540-A-401 - [id number] Implanted:Qty: 1 on 01/05/2023 by Kevon Forman MD at [facility] Left: Knee [employer] [id number] 11/08/2027 5540-A-40 1 / / [id number] [employer] Triathlon 5mm Total Stabilize Knee Left 4 Augment Femoral 5540-A-401 - [id number] Implanted:Qty: 1 on 01/05/2023 by Kevon Forman MD at [facility] Left: Knee [employer] [id number] 11/08/2027 5540-A-40 1 / / [id number] [employer] Triathlon 5mm Total Stabilize Knee Posterior 4 Augment Femoral 5543-A-400 - [id number] Implanted:Qty: 1 on 01/05/2023 by Kevon Forman MD at [facility] Left: Knee [employer] [id number] 10/14/2027 5543-A-40 0 / / [id number] [employer] Triathlon 10mm Total Stabilize Knee Posterior 4 Augment Femoral 5544-A-400 - [id number] Implanted:Qty: 1 on 01/05/2023 by Kevon Forman MD at [facility] Left: Knee [employer] [id number] 03/03/2026 5544-A-40 0 / / [id number] [employer] Triathlon Total Stabilize Knee Femur 25mm Extension Stem 5571-S-025 - [id number] Implanted:Qty: 1 on 01/05/2023 by Kevon Forman MD at [facility] Left: Knee [employer] [id number] 10/14/2027 5571-S-02 5 / / [id number] [employer] Triathlon Knee 3 [place] Baseplate Tibial Cocr 5521-B-300 - [id number] Implanted:Qty: 1 on 01/05/2023 by Kevon Forman MD at [facility] Left: Knee [employer] [id number] 09/08/2025 5521-B-30 0 / / [id number] [employer] Triathlon 12mm 50mm Cement End Cap Knee Stem Femoral Cocr 5560-S-112 - [id number] Implanted:Qty: 1 on 01/05/2023 by Kevon Forman MD at [facility] Left: Knee [employer] [id number] 04/19/2027 5560-S-11 2 / / [id number] [employer] Triathlon 5mm Total Stabilize Right Medial Left Lateral 3 Augment 5545-A-302 - [id number] Implanted:Qty: 1 on 01/05/2023 by Kevon Forman MD at [facility] Left: Knee [employer] [id number] 03/10/2027 5545-A-30 2 / / [id number] [employer] Triathlon 5mm Total Stabilize Left Medial Right Lateral 3 Augment 5545-A-301 - [id number] Implanted:Qty: 1 on 01/05/2023 by Kevon Forman MD at [facility] Left: Knee [employer] [id number] 01/15/2025 5545-A-30 1 / / [id number] [employer] Triathlon 19mm Total Stabilizer Plus Knee 3 Insert Tibial Sterile 8920-H-671-E - [id number] Implanted:Qty: 1 on 01/05/2023 by Kevon Forman MD at [facility] Left: Knee [employer] [id number] 11/26/2026 5537-G-31 9-E / / [id number] Explanted Type Area Track Repair Worker Device Identifier Shelf Expiration Date Model / Serial / Lot [employer] Simplex P Full Dose Radiopaque Preblend Cement Bone Tobramycin 6197-9-001 - [id number] Implanted:Qty: 3 on 09/27/2022 by Kevon Forman MD at [facility] Explanted:Qty: 3 on 01/05/2023 by Kevon Forman MD at [facility] Left: Knee [employer] 11/06/2023 6197-9-00 1 / / [id number] [employer] Simplex P Full Dose Radiopaque Preblend Cement Bone Tobramycin 6197-9-001 - [id number] Implanted:Qty: 3 on 09/27/2022 by Kevon Forman MD at [facility] Explanted:Qty: 3 on 01/05/2023 by Kevon Forman MD at [facility] Left: Knee [employer] 09/06/2023 6197-9-00 1 / / [id number] [employer] Triathlon 16mm Total Stabilizer Plus Knee 3 Insert Tibial Sterile 3912-D-123-E - [id number] Implanted:Qty: 1 on 09/27/2022 by Kevon Forman MD at [facility] Explanted:Qty: 1 on 01/05/2023 by Kevon Forman MD at [facility] Left: Knee [employer] [id number] 12/31/2026 5537-G-31 6-E / / [id number] [employer] Tri[employer]lon 10mm Total Stabilize Knee Posterior 4 Augment Femoral 5544-A-400 - [id number] Implanted:Qty: 1 on 09/27/2022 by Kevon Forman MD at [facility] Explanted:Qty: 1 on 01/05/2023 by Kevon Forman MD at [facility] Left: Knee [employer] [id number] 01/17/2027 5544-A-40 0 / / [id number] [employer] Triathlon 5mm Total Stabilize Knee Posterior 4 Augment Femoral 5543-A-400 - [id number] Implanted:Qty: 1 on 09/27/2022 by Kevon Forman MD at [facility] Explanted:Qty: 1 on 01/05/2023 by Kevon Forman MD at [facility] Left: Knee [employer] [id number] 05/25/2027 5543-A-40 0 / / [id number] [employer] Tri[employer] 5mm Total Stabilize Knee Left 4 Augment Femoral 5540-A-401 - [id number] Implanted:Qty: 1 on 09/27/2022 by Kevon Forman MD at [facility] Explanted:Qty: 1 on 01/05/2023 by Kevon Forman MD at [facility] Left: Knee [employer] [id number] 04/01/2024 5540-A-40 1 / / [id number] [employer] Tri[employer] 5mm Total Stabilize Knee Left 4 Augment Femoral 5540-A-401 - [id number] Implanted:Qty: 1 on 09/27/2022 by Kevon Forman MD at [facility] Explanted:Qty: 1 on 01/05/2023 by Kevon Forman MD at [facility] Left: Knee [employer] [id number] 05/21/2024 5540-A-40 1 / / [id number] [employer] Tri[employer] Cemented Posterior Stabilize Knee Left 4 Component 5515-F-401 - [id number] Implanted:Qty: 1 on 09/27/2022 by Kevon Forman MD at [facility] Explanted:Qty: 1 on 01/05/2023 by Kevon Forman MD at [facility] Left: Knee [employer] [id number] 08/10/2026 5515-F-40 1 / / [id number] Insurance MEDICARE [facility] MEDICARE [facility] MEDICARE [facility] [place] [address] MEDICARE [facility] [place] [address] MEDICARE [facility] Address: [address] [address] [place] [address] Advance Directives For more information, please contact: [phone] Documents on File Type Date Recorded 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
--- OUTSIDE RECORDS SUMMARY | 2025-01-14 01:09 | XMS_ITS | Encounter Summary ---
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
--- OUTSIDE RECORDS SUMMARY | 2025-01-14 01:09 | XMS_ITS | Continuity of Care Document ---
Author Organization [facility] ices Address [address] [place] [address] Phone Care Team Providers Care Rigging Helper Name Role Phone Rayna Mohr Unavailable Unavailable Medications Medication Instructions Dosage Effective Dates (start - stop) Status Comments triamterene 37.5 mg-hydrochlorothiaz britt 25 mg capsule take 1 capsule by oral route every day 1.00 capsule - Active Prilosec OTC 20 mg tablet,delayed release take 1 by Oral route every day 1 - Active pravastatin 40 mg tablet take 1 tablet by oral route every day 40 MG - Active Lexapro 20 mg tablet take 1 tablet by oral route every day 20 MG - Active Flonase Allergy Relief 50 mcg/actuation nasal spray,suspension spray 1 - 2 spray by intranasal route every day in each nostril as needed 50-100 MCG - Active Procedures Procedure Date PHONE E/M BY PHYS 5-10 MIN Advance Directives Directive Yes / No Effective Date File Name No Information Encounters Encounter Description Practice Location Reason(s) For Visit Diagnoses Date Provider Providers Copied on Encounter [facility], [address] [place] [address], tel:[phone] [place] No Information [address] [place] [address], [facility], . tel: [phone] PHONE E/M BY OffScale 5-10 MIN [facility], [address] [place] [address], [facility], tel:[phone] [place] COVID SYMPT (chief complaint) Contact w and exposure to oth viral communicable diseases [address] [place] [address], [address], . tel: [phone] Family History Family Member Type Diagnosis Age [...] lot and provider is located at the [facility]. Patient complains of a 4 day long history of headache, fatigue, chest tightness and chills. Patient denies any current pain. Aggravating factors include increased activity. Relieving factors include rest and Advil. Patient also states that she was exposed to two COVID-19 positive patients on 09/15/2020 at her workplace. Patient denies that anyone in their household has traveled outside of the [facility] in the last 3 weeks or that [...]
--- OUTSIDE RECORDS SUMMARY | 2025-01-14 01:09 | XMS_ITS | Clinical Summary ---
Author Organization [facility] Address [address] [place] [address] Phone Care Team Providers Care Wheat Buyer Name Role Phone Leno Bermudez MD Primary Care Provider [phone] Leno Bermudez MD Unavailable [phone] Allergies Active Allergy Reactions Criticality Noted [...] on file Legal Sex Female 10:14 AM SENIOR QUALITY ENGINEER Gender Identity Not on file Sexual Orientation [...] 72.6 kg (160 lb) 11/02/2020 2:31 PM SENIOR QUALITY ENGINEER Height 167.6 cm (5' 6 ) 11/02/2020 2:31 PM SENIOR QUALITY ENGINEER Body Mass Index 25.82 11/02/2020 2:31 PM SENIOR QUALITY ENGINEER Plan of Treatment Health Maintenance Due Date [...] patient's age to complete this topic Insurance [employer] [place] [id number] * Guarantor: [facility] Account Type Relation to Patient Date of Phone Billing Address Institutional Other [address] [place] [address] Care Teams Wheat Buyer Relationship Specialty Start Date End Date Leno Bermudez MD [address] [facility] [address] [place] [address] PCP - General Internal Medicine 11/02/20 Leno Bermudez MD [address] [facility] [address] [place] [address] Internal Medicine 11/02/20
--- OUTSIDE RECORDS SUMMARY | 2025-01-14 01:09 | XMS_ITS | Encounter Summary ---
Author Organization [facility] Address [address] [place] [address] Phone Care Team Providers Care Ict Development Manager Name Role Phone Leno Bermudez MD Primary Care Provider [phone] Leno Bermudez MD Unavailable [phone] Encounter Details Date Type Department Care Team (Late st Contact Info) Description 05/16/2023 Lab Requisition [facility] [address] [place] [address] System, Referring Not In [place] Social History Tobacco Use Types Packs/Day Years Used Date Smoking Tobacco: Former Smokeless Tobacco: Never Alcohol Use Standard Drinks/Week Comments Yes 0 (1 standard drink = 0.6 oz pur e alcohol) wine Comments No Sex and Gender Information Value Date Recorded Sex Assigned at Not on file 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 No detectable VZV IgG antibody. 0.9 - 1.0 Equivocal >=1.1 Positive Antibody testing was performed by multiplex flow immunoassay on the [employer] platform. us Referring Not In System IMMUNOLOGY ORDERABLES Fi nal Result Performing Organization Address City/State/[facility] Co de Phone Number [facility] [address] [place] [address], * RUBEOLA (MEASLES) IGG (05/16/2023 10:44 AM CDT) MEASLES AB IGG >8.0 >=1.1 AI 05/16/2023 10:18 PM CDT [facility] Blood Venipuncture / Unknown 05/16/2023 10:44 AM CDT 05/16/2023 12:46 PM CDT Narrative [facility] - 05/16/2023 10:18 PM CDT <= 0.8 Negative. No detectable Measles IgG antibody. 0.9 - 1.0 Equivocal >=1.1 Positive Antibody testing was performed by multiplex flow immunoassay on the [employer] platform. us Referring Not In System IMMUNOLOGY ORDERABLES Fi nal Result Performing Organization Address City/[facility] Co de Phone Number [facility] [address] [place] [address], [place] * RUBELLA IMMUNITY IGG (05/16/2023 10:44 AM CDT) [facility] Immune Immune, Invalid 05/16/2023 10:18 PM CDT [facility] Blood Venipuncture / Unknown 05/16/2023 10:44 AM CDT 05/16/2023 12:46 PM CDT Narrative [facility] - 05/16/2023 10:18 PM CDT Antibody testing was performed by multiplex flow immunoassay on the [employer] platform. us Referring Not In System CHEMISTRY ORDERABLES Fin al Result Performing Organization Address [facility] Co de Phone Number [facility] [address] [place] [address], [place] * MUMPS IGG (05/16/2023 10:44 AM CDT) Mumps Ab IgG 3.8 >=1.1 AI 05/16/2023 10:18 PM CDT [facility] Blood Venipuncture / Unknown 05/16/2023 10:44 AM CDT 05/16/2023 12:46 PM CDT Narrative [facility] - 05/16/2023 10:18 PM CDT <= 0.8 Negative. No detectable Mumps IgG antibody. 0.9 - 1.0 Equivocal >=1.1 Positive Antibody testing was performed by multiplex flow immunoassay on the [employer] platform. us Referring Not In System IMMUNOLOGY ORDERABLES Fi nal Result Performing Organization Address City/[facility]/ZIP Co de Phone Number [facility] [address] [place] [address], * QUANTIFERON-TB GOLD PLUS (05/16/2023 10:44 AM CDT) NIL CONTROL 0.02 <8.01 IU/mL 05/18/2023 11:08 AM CDT [facility] TB ANTIGEN 1 0.02 <0.35 IU/mL 05/18/2023 11:08 AM CDT [facility] TB ANTIGEN 2 0.03 <0.35 IU/mL 05/18/2023 11:08 AM CDT [facility] MITOGEN CONTROL 9.98 >0.49 IU/mL 05/18/20 11:08 AM CDT [facility] INTEPRETATION TB NEGATIVE NEGATIVE, NEGATIVE (TB antigen response less than 25% of internal negative control value) 05/18/2023 11:08 AM CDT [facility] Comment:No immune response t o Mycobacterium tuberculosis antigens was noted. M. tuberculosis infection unlikely. Blood Venipuncture / Unknown 05/16/2023 10:44 AM CDT 05/16/2023 12:46 PM CDT Narrative [facility] - 05/18/2023 11:08 AM CDT A POSITIVE [...] ORDERABLES Fi nal Result Performing Organization Address [facility] Co de Phone Number [facility] [address] [place] [address], [place] * HEPATITIS B SURFACE ANTIBODY (HBSAB) (05/16/2023 10:44 AM CDT) HEPATITIS B SURFACE ANTIBODY 45.48 mIU/mL [facility] [id number] 05/17/2023 1:39 AM CDT [facility] Comment: Detected Range: >12.00 Individual is considered immune to HBV infection Blood Venipuncture / Unknown 05/16/2023 10:44 AM CDT 05/16/2023 12:46 PM CDT us Referring Not In System CHEMISTRY ORDERABLES Fin al Result Performing Organization Address [facility] Co de Phone Number [facility] [address] [place] [address], documented in this encounter Visit Diagnoses Not on filedocumented in this encounter Care Teams Ict Development Manager Relationship Specialty Start Date End Date Leno Bermudez MD [address] [facility] [address] [place] [address] PCP - General Internal Medicine 11/02/20 Leno Bermudez MD [address] [place] [address] [address] [place] [address] Internal Medicine 11/02/20 documented as of this encounter
--- OUTSIDE RECORDS SUMMARY | 2025-01-14 01:09 | XMS_ITS | CONTINUITY OF CARE DOCUMENT ---
Author Name mylene chakraborty Address Unknown Organization [facility] Address [address] [facility] [address] [place] [address] Phone [phone] Care Team Providers Care Payroll Supervisor Name Role Phone mylene chakraborty Unavailable Unavailable INSURANCE PROVIDERS Payer name Policy type / Coverage type [place] red democrat ID [facility] [id number]
--- NOTE | 2025-01-14 04:36 | WPDHPUPDATE1 ---
History and Physical Update Update Date/Time: 01/14/25 04:36 History and Physical has been reviewed, including an updated exam of the patient. There are NO changes in the patient's condition. Risks, benefits, and alternatives have been discussed and questions answered. Patient agrees to proceed with procedure.
[2025-01-14] MEDS: LACTATED RINGERS 1,000 ML 30 ML IV CONT ×2 (06:40→10:08)
[2025-01-14] MEDS: ACETAMINOPHEN 500 MG TABLET 1000 MG PO (06:49)
[2025-01-14] MEDS: KETOROLAC 15 MG/ML VIAL (*BKC) IV PUSH (06:49)
--- NOTE | 2025-01-14 07:19 | WPDHPUPDATE1 ---
History and Physical Update Update Date/Time: 01/14/25 07:19 History and Physical has been reviewed, including an updated exam of the patient. There are NO changes in the patient's condition. Risks, benefits, and alternatives have been discussed and questions answered. Patient agrees to proceed with procedure.
[2025-01-14] MEDS: SCOPOLAMINE 1 MG PATCH 1 PATCH TRANSDERM (07:25)
[2025-01-14] MEDS: ceFAZolin 2 GM/D5W 50 ML 2 GM/50 ML BAG IVPB (07:29)
[2025-01-14] MEDS: metroNIDAZOLE 500 MG/ISO 100ML 500 MG/100 ML BAG 100 MG IVPB (07:40)
--- NOTE | 2025-01-14 07:54 | WPDANESEPPF ---
Anes - Initial Pre Proc Eval Procedure: Operation Date: 01/14/25 07:30 Proposed Procedures p Robotic Sacrocolpopexy - Luis Gibbs MD s Robotic Assisted Laparoscopic Supracervical Hysterectomy with Bilateral Salpingo Oophorectomy - Chano Simental MD Date/Time: 01/14/25 07:54 Surgeon: Luis Gibbs MD Pre Op Diagnosis: incompl uterovag prolapse, Patient Data Age: 69 Gender: F Height: 1.69 m Weight: 79.85 kg Last Vital Signs Temp 36.7 C 01/14/25 06:06 Pulse 68 01/14/25 06:06 Resp 16 01/14/25 06:06 BP 140/85 01/14/25 06:06 Pulse Ox 98 01/14/25 06:06 O2 Del Method Room Air 01/14/25 06:06 Allergies Allergy/AdvReac Type Severity Reaction Status Date / Time vancomycin Allergy Severe dress Verified 01/14/25 06:19 syndrome hydrocodone Allergy Rash Verified 01/14/25 06:19 ciprofloxacin (From Cipro) AdvReac Severe Other Verified 01/14/25 06:19 vicryl suture Allergy Severe sterile Uncoded 01/14/25 06:19 abcess Home Medications ?Medication ?Instructions ?Recorded ?Confirmed ?Type Lactobacillus 1 cap PO DAILY 11/28/23 01/14/25 History acidophilus-Bifidobac.animalis 2.5 billion cell capsule (Daily Probiotic) alprazolam 0.5 mg tablet 0.5 mg PO HS PRN Anxiety 11/28/23 01/14/25 History calcium 600 mg (as carbonate)-vit 1 tablet PO DAILY 11/28/23 01/14/25 History D3 20 mcg (800 unit) chewable tablet (Caltrate plus D) cholecalciferol (vitamin D3) 50 50 mcg PO DAILY 11/28/23 01/14/25 History mcg (2,000 unit) tablet (Vitamin D3) escitalopram oxalate 20 mg tablet 20 mg PO DAILY 11/28/23 01/14/25 History melatonin 5 mg tablet 5 mg PO HS PRN Insomnia 11/28/23 01/01/25 History meloxicam 7.5 mg tablet 7.5 mg PO DAILY PRN Pain 11/28/23 01/14/25 History omeprazole 20 mg capsule,delayed 20 mg PO DAILY 11/28/23 01/14/25 History release pravastatin 40 mg tablet 40 mg PO HS 11/28/23 01/14/25 History triamterene 37.5 1 cap PO DAILY 11/28/23 01/14/25 History mg-hydrochlorothiazide 25 mg capsule vitamin B complex 1 tablet PO DAILY 11/28/23 01/14/25 History oxybutynin chloride 10 mg 10 mg PO DAILY #30 tabs 12/03/24 01/14/25 Rx tablet,extended release 24 hr Patient hx anesthesia problems: post op nausea/vomiting Family hx anesthesia problems: none Results Review: All pre-operative results and documents have been reviewed as part of the pre-operative evaluation. [facility] Past Medical History Medical History Osteoarthritis Depression Osteopenia Sleep apnea Hyperlipidemia History of hypertension Surgical History Surgical History H/O total knee replacement left knee 2017 removed in 2021 for infection new knee in 01/2023 H/O nasal septoplasty H/O right breast biopsy benign Family History Family History Mother Hypertension Lung cancer Sibling Breast cancer sister Grandparent Diabetes mellitus both grandfathers Social History Social History Smoking packs per day: 1 Smoking cigarettes per day: 20.0 Years smoked: 6 Smoking pack-years: 6.00 Smoking status: Former smoker Tobacco type: cigarettes Second hand tobacco smoke exposure: Yes Smoking end date: 11/07/78 Alcohol intake: current Drinks per week: 4 Alcohol use details: wine Substance use: never Substance use type: does not use Do You Feel Safe in your Home?: Yes Lack of Transportation: No Lack of Food: Never True Current Housing: I Have Housing Concerned About Future Housing: No Difficulty Paying Gas/Electric Bills: No Difficulty Paying for Meds: No Currently Unemployed: No Education: Bachelor's Degree Difficulty w/ Childcare or Family Care: No Living arrangements: with family Additional living arrangements comments: Occupation/Education: retired Gender identity (if verbalized by the patient): Female Sexual Orientation (if Verbalized by the Patient): Straight or Heterosexual Spiritual care concerns: No Anes - Eval Final PreProcedure Day of Procedure 01/14/25 07:54 Patient weight: overweight Heart: regular rate and rhythm Lungs: clear to auscultation Airway: Mallampati scale class II Neurological: alert and oriented Last oral intake: >/= 8 hours ASA classification: III Emergent: no Anesthetic plan: proceed Anesthesia type and monitoring: general ETT and standard monitoring Results Review: All pre-operative results and documents have been reviewed as part of the pre-operative evaluation. Informed Consent: The patient's anesthetic plan and its attendant risks and benefits were discussed with the patient/family/POA. Questions were solicited and answers provided to the satisfaction of the patient/family/POA.
[2025-01-14] MEDS: BUPIVACAINE/EPINEPHRINE 0.5% 50 ML VIAL 30 ML INFILTRATE (07:57)
--- NOTE | 2025-01-14 08:23 | W.PM.PROC2 ---
Procedure Note - Detailed Date of Procedure 01/14/25 Pre-op Diagnosis incompl uterovag prolapse, cystocele, rectocele Post-op Diagnosis Same Procedure Performed 1. Robotic assisted supracervical hysterectomy 2. Robotic bilateral salpingo oophorectomy Surgeon Chano Simental MD Anesthesia General Findings Uterus tubes ovaries without abnormality Description of Procedure Patient prepped and draped usual manner for this procedure. Trocars and instruments were placed by Dr. Gibbs. Surgeon moved to the console and findings were noted as above. Infundibulopelvic ligament was cauterized and cut bilaterally. Round ligament was cauterized and cut and bladder flap developed without difficulty. Posterior leaf the broad ligament was also incised without difficulty. Uterine vessels were then skeletonized cauterized and cut. Once the vascularity to the uterus had been cauterized and cut supracervical hysterectomy was performed with out difficulty. There was no bleeding at this point the procedure was considered terminated from the gynecologic perspective and Dr. Gibbs moved into the room to proceed with his portion of the procedure. Estimated Blood Loss 10 Drains No Packing No Pathology Yes Complications No immediate complications Condition Stable Disposition PACU [facility] Billing Surgery - Charge Forward: Surgery Billing
--- NOTE | 2025-01-14 09:59 | W.PM.PROC2 ---
Procedure Note - Detailed Date of Procedure 01/14/25 Pre-op Diagnosis incompl uterovag prolapse, Post-op Diagnosis Same Procedure Performed Robotic assisted laparoscopic sacral colpopexy Cystoscopy Surgeon Luis Gibbs MD Anesthesia General Indications This is a woman with uterine prolapse. She has no stress incontinence. She has had a previous urethral sling operation. She presents today for sacral colpopexy along with supracervical hysterectomy by her career development associate. She understands risk of bleeding, infection, diskitis, damage to surrounding organs, bowel injury, bowel obstruction, mesh related complications including exposure and extrusion, postoperative voiding dysfunction including incontinence and retention, need for ancillary procedures, dyspareunia, recurrence of prolapse, and other perioperative intraoperative postoperative complications. She agrees to proceed. Findings See below Description of Procedure She was correctly identified. Informed consent obtained. She from the operating room. She was given general anesthesia. She was given appropriate perioperative antibiotics. She was placed a low lithotomy position. Pressure points were padded. A time-out performed. I marked out the skin 3 fingerbreadths cephalad to the umbilicus. I anesthetized the skin. I incised the skin. I dissected down to the fascia. I grasped the fascia with Sharon clamps. I entered the fascia sharply in a Oswald type technique. I placed sutures for later fascial closure. I placed a midline trocar. I examined the abdomen. There is no sign of any injury. Under direct vision I placed 2 additional trocars in the right upper quadrant and 2 additional trocars the left upper quadrant. She was placed in steep Trendelenburg. The robot was docked. Her career development associate completed their portion of the procedure. Please see that operative report for details. I then sat at the console. The Sizer in the vagina created plane on the anterior and posterior vaginal wall. I took great care not to injure the vagina, bladder, or rectum. I introduced the mesh into the abdomen. I sewed the anterior leaflet of mesh on the anterior vaginal wall. I sewed the posterior leaflet of mesh on the posterior vaginal wall. This was done with several sutures of 2 0 [place]. I reflected the colon laterally. I opened the posterior peritoneum over the sacral promontory. I carried this into the cul-de-sac. I freed up the edges for later retroperitonealization. I located the anterior longitudinal ligament the sacrum. I cleaned off all fatty tissues. I then tensioned my mesh appropriately. I did a vaginal exam the bedside. I assured prolapse reduction without undue tension. She had a small residual rectocele. She had a fixed urethra consistent with previous sling operation. No mesh exposure. I then sewed the proximal leaflet of mesh onto the anterior longitudinal ligament of the sacrum with 3 sutures of 2 0 [place]. I then used a 2 0 Monocryl to completely and meticulously retroperitonealized all mesh. I allowed the colon to go back to its normal anatomic location. There is no sign of any impingement. The specimen was then removed. All ports removed. Fascia was tied down. Skin was closed with Monocryl and surgical glue. I then performed cystoscopy. There was no tumors or surgical artifact. Both ureters were seen to excrete clear yellow urine. There is no surgical artifact in the bladder or urethra. I cut the excess sling material. Close incision with glue. She was awakened and transferred to PACU in stable condition. Implants Sacral colpopexy mesh Estimated Blood Loss 10 Packing No Pathology None sent Complications No immediate complications Condition Stable Disposition PACU
[2025-01-14] MEDS: fentaNYL CITRATE INJ (*CRX) 100 MCG/2 ML VIAL 25 MCG IV PUSH ×8 (10:24→11:04)
[2025-01-14] MEDS: ONDANSETRON INJ 4 MG/2 ML VIAL IV PUSH (10:25)
[2025-01-14] MEDS: HYDROmorphone HCL INJ (*CRX) 1 MG/ML SYR 0.5 MG IV PUSH ×2 (11:16→11:26)
[2025-01-14] MEDS: traMADol HCL (*CRX) 50 MG TABLET PO (12:15)
== END 2025-01-14 13:09 | disposition home or self-care (01) ==
PROVIDERS: Obstetrics & Gynecology; PCP Internal Medicine; Visit Provider Urology
PROC: (CPT 57425; principal; 2025-01-14 07:30)
PROC: 0UT94ZZ Resection of Uterus, Percutaneous Endoscopic Approach (ICD-10-PCS; CPT 57425; 2025-01-14 07:30)
DX: N81.2 Incomplete uterovaginal prolapse (principal); N83.8 Other noninflammatory disorders of ovary, fallopian tube and broad ligament; Z87.891 Personal history of nicotine dependence
CPT/HCPCS: 58542; 57425; S2900 ×2; 88307; A9270; C1781; J0690; J1100; J1171; J1836; J1885; J2003; J2250; J2405; J2704; J3010; J7030; J7070; J7120